=== PATIENT | male | born 1935 | race Caucasian/White ===

== ENCOUNTER 2017-01-24 06:43 | Inpatient (IN) ==
[~2017-01-24 06:43] MED LIST: ASPIRIN 325 MG TABLET PO ONE; DIAZEPAM 5 MG TABLET PO ONE; MAGNESIUM SULF RIDER 2 GM in PREMIX 1 EACH IV PRN; POTASSIUM CHLORIDE RIDER 10 MEQ in PREMIX 1 EACH IV PRN; diphenhydrAMINE CAP 25 MG CAPSULE PO ONE
[2017-01-24] MEDS ORDERED: HEPARIN/NACL 0.9% 2 UNITS/ML 1,000 ML IV ONE (07:16)
[2017-01-24] MEDS ORDERED: diphenhydrAMINE CAP 25 MG CAPSULE ONE (07:38)
[2017-01-24] MEDS ORDERED: DIAZEPAM 5 MG TABLET ONE (07:38)
[2017-01-24] MEDS: SODIUM CHLORIDE 0.9% 1,000 ML IV SCH ×4 (07:40→22:30)
[2017-01-24] MEDS ORDERED: LIDOCAINE 1% 20 ML VIAL ONE (08:41)
[2017-01-24] MEDS ORDERED: MIDAZOLAM 2 MG/2 ML VIAL ONE (08:42)
[2017-01-24] MEDS ORDERED: HYDROmorphone 2 MG/1 ML VIAL ONE (08:42)
--- NOTE | 2017-01-24 09:01 | History and Physical Update ---
Sedation H&P Update - History and Physical H&P was reviewed, the patient examined and there: are no changes in the patients condition since last H&P was completed. - Dictation Physical: refer to scanned H&P - Physical Exam Mental Status: alert and oriented Heart: regular rate and rhythm Lung: clear to auscultation Abdomen: within normal limits Vitals: within normal limits - Sedation Plan for Sedation: moderate Patient Consent: Procedure disscussed with patient and patinet has consented., Risks and benefits were discussed with patient,including infection,, bleeding, injury to surrounding structures, seizure, temporary nerve, Patient understands and accepts potential risks/benefits and agrees to, proceed. ASA Class: II Airway Assessment: Class II: Soft palate, uvula, fauces visible
[2017-01-24] MEDS ORDERED: ZALEPLON 5 MG CAPSULE PO PRN (09:50)
[2017-01-24] MEDS ORDERED: NITROGLYCERIN SL 0.4 MG TABLET SL PRN (09:50)
[2017-01-24] MEDS ORDERED: ACETAMINOPHEN 325 MG TABLET PO PRN (09:50)
[2017-01-24] MEDS ORDERED: ONDANSETRON 4 MG/2 ML VIAL IV PRN (09:50)
--- NOTE | 2017-01-24 09:50 | Cardiac Catheterization ---
Date of Procedure:: 01/24/17 Pre-op Diagnosis: Chest pain CAD Post-op diagnosis: same Procedure: Cardiac catheterization procedure note #1 left heart catheterization #2 selective coronary angiography #3 SAMUEL angiography #4 left ventriculography Omnipaque was used for the procedure Description of procedure Following sterile preparation draping of the right groin, local anesthesia was achieved by infiltration with 1% Xylocaine. Using a Cook needle the right femoral artery was cannulated and a #6 sheath was inserted. A 6 Kosovan pigtail catheter was introduced and advanced retrograde across the aortic valve into the left ventricle and the end-diastolic pressure was recorded. Left ventriculography was performed in the HERNANDEZ projection using 24 cc of contrast material. A pullback was made across aortic valve. The pigtail catheter change for a 6 Kosovan left Betty catheter and left coronary angiography was performed in several HERNANDEZ and JAMAICAN projections. The catheter change for a 6 Kosovan right Amplatz catheter and right coronary angiography was performed in the JAMAICAN projection only. The catheter exchanged for a 6 Kosovan internal mammary artery catheter and SAMUEL angiography was performed in the JAMAICAN projection only. The catheter and sheath were then removed and the femoral arteriotomy site was sealed percutaneously minx closure device with prompt cessation of bleeding and prompt return of the femoral and foot pulses. No complications ensued. The patient was transferred back to his room in stable condition. Hemodynamic data Left ventricle 152/10 Aortic pressure 152/53 mean of 90 Selective coronary angiography The circulation is left dominant. The left main trunk is patent and bifurcates. The LAD is calcified all the way to the apex. It has diffuse severe disease .a large first diagonal branch has a 50-60% stenosis. The circumflex is a dominant vessel. The main trunk of the circumflex has a patent stent site. There is a 80% stenosis in the posterior descending artery. The OM1 stent site is occluded with retrograde filling of this vessel. The RCA is a small nondominant vessel. The RV marginal branch provides right to left collaterals to the apical LAD. The DANIEL is a 2.5 mm non-tortuous vessel that is widely patent. Left ventriculography Ejection fraction 55%. No mitral regurgitation. Conclusions LVEDP 10 Ejection fraction 55% No mitral regurgitation No aortic valve gradient Left dominant circulation Left main trunk-patent LAD-diffusely calcified with severe diffuse disease Large ucfwcwsm-29-13% proximal Dominant circumflex-patent proximal stent site with occluded OM1 at the stent site with late filling and 80% stenosis in the PDA Right coronary-small nondominant, patent. RV marginal branch provides collaterals to the apical LAD SAMUEL-2.5 mm non-tortuous patent vessel Disposition The patient is status post proximal dominant circumflex and OM1 stent July 2013. There has been severe disease progression since that time. Ventricular function is preserved. The LAD is diffusely calcified to the apex and has severe disease and the OM1 is now occluded and the diagonal branch has moderate disease. Dr. Greg Maldonado has been consulted for surgical opinion. He remain on normal saline hydration. Cine pictures were reviewed with the patient 's and family. Implants: No implants Anesthesia: moderate conscious sedation Surgeon / Physician: Bk Torres Estimated blood loss: minimal Specimens: none sent Condition: stable Disposition: floor - Medications / Follow-up
[2017-01-24] MEDS ORDERED: diphenhydrAMINE CAP 50 MG CAPSULE PO PRN (16:58)
[2017-01-24] MEDS: CHLORHEXIDINE 4% SOLN 118 ML BOTTLE TOP SCH ×2 (18:52→20:40)
[2017-01-24] MEDS: PANTOPRAZOLE 40 MG TABLET PO SCH (20:40)
[2017-01-24] MEDS: CHLORHEXIDINE 0.12% ORAL RINSE 60 ML BOTTLE SWISH/SPIT SCH (20:41)
[2017-01-24] MEDS ORDERED: CARVEDILOL 3.125 MG TABLET PO SCH (21:00)
[2017-01-24] MEDS ORDERED: CILOSTAZOL 50 MG TABLET PO SCH (21:00)
[2017-01-25 04:52] LABS: Calcium 8.5 MG/DL (8.5-10.1); Osmolality,Calculated 286.8 MOS/KG (273-304)
[2017-01-25] MEDS: SODIUM CHLORIDE 0.9% 1,000 ML IV SCH ×4 (06:44→22:00)
--- NOTE | 2017-01-25 07:57 | Cardiology Progress Note ---
<Jeannette Anthony - Last Filed: 01/25/17 07:54> Assessment and Plan (1) CAD (coronary artery disease) Status: Chronic Assessment and plan: Plan for CABG tomorrow morning per Dr. Flanagan. -Continue aspirin -Increase carvedilol to 6.25 mg p.o. twice daily. Further plan and addendum to follow per Dr. Torres. Current Visit: Yes (2) Hypertension Status: Chronic Assessment and plan: Patient remains mildly hypertensive. Will increase Coreg to 6.25 mg p.o. twice daily. Current Visit: Yes (3) Hypercholesterolemia Status: Chronic Assessment and plan: Continue current plan of care with lipid lowering agent. Current Visit: Yes (4) Diabetes Status: Chronic Assessment and plan: Continue current plan of care. Current Visit: Yes Cardiology - PN: Subj Interval history: Patient is status post heart catheterization yesterday per Dr. Torres. The patient is status post proximal circumflex and OM1 stent July 2013. There has been severe disease progression since that time. Ventricular function is preserved, EF 55%. The LAD is diffusely calcified to the apex and has severe disease, the OM1 is now occluded and the diagonal branch has moderate disease. Dr. Greg Maldonado has been consulted. He plans for CABG tomorrow morning. Patient did well post heart catheterization. He has had no combinations. Right groin is soft without bleeding, hematoma and bruit. Bilateral distal pulses present. Patient denies chest pain, heaviness and tightness. He has ambulated around the room this morning. Right groin has remained stable post ambulation. Creatinine is stable post catheterization. He is currently sinus rhythm with heart rates in the 50s without any overt arrhythmias or ectopy noted. Labs-creatinine 1.0, potassium 4.0, sodium 144, chloride 109, blood sugar 97. Further plan and addendum to follow per Dr. Torres. Exam (Progress Note) - Constitutional Vitals: Period Temp Pulse Resp BP Sys/Reed Pulse Ox Last 24 Hr 97 F-98.7 F 55-60 14-20 130-185/58-87 93-95 General appearance: normal weight, no acute distress - Head Head exam: Present: normal inspection, normocephalic, atraumatic - Neck Neck exam: Present: normal inspection - Respiratory Respiratory exam: Present: clear to auscultation bilaterally. Absent: accessory muscle use, chest wall tenderness, rales, rhonchi, stridor, wheezes - Cardiovascular Cardiovascular exam: Present: regular rate and rhythm. Absent: gallop, rubs - GI/Abdominal GI/Abdominal exam: Present: normal bowel sounds, soft. Absent: distended, firm , mass, tenderness - Extremities Exam Extremities exam: Present: normal inspection, normal capillary refill, other ( Right groin soft without bleeding, hematoma and bruit. Distal pulses present.) . Absent: calf tenderness, edema - Neurological Exam Neurological exam: Present: alert, oriented X3, normal gait - Psychiatric Psychiatric exam: Present: normal affect, normal mood - Skin Skin exam: Present: normal color, warm, dry. Absent: cyanosis, erythema Result/EKG - Labs CBC & BMP: 01/25/17 03:13 Lab Results: I have reviewed the past 24 hour labs Labs: Laboratory Results - last 24 hr 01/25/17 03:13 Sodium 144 Potassium 4.0 Chloride 109 H Carbon Dioxide 29 Anion Gap 10.0 BUN 14 Creatinine 1.00 GFR Calculation 78 BUN/Creatinine Ratio 14.00 Glucose 97 Calculated Osmolality 286.8 Calcium 8.5 Quality Measures - VTE Contraindication to Pharmacological VTE Prophylaxis: Active Bleeding - Stroke Presenting Symptoms: Decreased peripheral vision Specialty Discharge - Follow Up or Referrals <Bk Torres - Last Filed: 01/25/17 09:09> Cardiology - PN: Subj Interval history: Cardiology addendum Patient seen and examined and chart reviewed. Right groin soft and dry. No bruit or hematoma. Distal pulses 2+ symmetric. Renal function stable post-cath, creatinine 1.0 BUN 14 potassium 4.0 Telemetry shows steady sinus rhythm Plan Routine groin precautions discussed CABG tomorrow Exam (Progress Note) - Constitutional Vitals: Period Temp Pulse Resp BP Sys/Reed Pulse Ox Last 24 Hr 97 F-98.7 F 55-60 14-20 130-185/58-87 93-95 Result/EKG - Labs CBC & BMP: 01/25/17 03:13 Labs: Laboratory Results - last 24 hr 01/25/17 03:13 Sodium 144 Potassium 4.0 Chloride 109 H Carbon Dioxide 29 Anion Gap 10.0 BUN 14 Creatinine 1.00 GFR Calculation 78 BUN/Creatinine Ratio 14.00 Glucose 97 Calculated Osmolality 286.8 Calcium 8.5
--- NOTE | 2017-01-25 08:40 | Cardiothoracic Consult ---
Assessment and Plan - Time spent with patient Time spent with patient: Greater than 30 minutes (1) CAD (coronary artery disease) Status: Chronic Assessment and plan: Risk Model and Variables - STS Adult Cardiac Surgery Database Version 2.81 RISK SCORES About the STS Risk Calculator Procedure: CAB Only Risk of Mortality: 2.391% Morbidity or Mortality: 16.049% Long Length of Stay: 7.431% Short Length of Stay: 35.304% Permanent Stroke: 1.402% Prolonged Ventilation: 10.443% DSW Infection: 0.494% Renal Failure: 3.071% Reoperation: 6.82% Risks benefits and alternatives of coronary artery bypass graft was discussed with the patient. The patient is considered slightly higher risk than average for the CABG due to his age however he is functional and his overall outcome would be favorable. The patient understands the risks and benefits and he is willing and eager to proceed with the surgery. I scheduled him for coronary artery bypass graft on January 26, 2017. Current Visit: Yes History of Present Illness - Data of Consult Patient: new to practice Consult date: 01/24/17 Requesting Physician: Bk Torres - Consult Narrative Reason for consult: severe coronary artery disease History of present illness: Mr. Lazo is a 81 year old male who has been having increasing shortness of breath upon exertion over the past few months. The patient did have a stent placed a few years ago and the circumflex artery. He was taken to [facility] and he was found to have multivessel coronary artery disease. That is including a completely diseased left anterior descending artery across its entire course. CC: Bk Torres MD - Home Medications and Allergies Home Medications: Home Medications Medication Instructions Recorded Confirmed Type Aspirin [Ecotrin] 81 mg PO DAILY 01/23/17 01/24/17 History Carvedilol 3.125 mg PO BID 01/23/17 01/24/17 History Cilostazol 50 mg PO BID 01/23/17 01/24/17 History Citalopram [CeleXA] 20 mg PO DAILY 01/23/17 01/24/17 History Ezetimibe [Zetia] 10 mg PO DAILY 01/23/17 01/24/17 History Lisinopril 10 mg PO DAILY 01/23/17 01/24/17 History Pantoprazole Tab [Protonix Tab] 40 mg PO BID 01/23/17 01/24/17 History Pravastatin [Pravachol] 40 mg PO DAILY 01/23/17 01/24/17 History amLODIPine [Norvasc] 2.5 mg PO DAILY 01/23/17 01/24/17 History Allergies/Adverse Reactions: Allergies Allergy/AdvReac Type Severity Reaction Status Date / Time No Known Allergies Allergy Verified 01/24/17 07:03 12 point system: reviewed and no additional remarkable complaints except as stated (HPI) Medical,Surgical,& Family Hx - Medical History Cardio: History of: Hypertension Neurology: No history of: Seizures Endocrine: History of: Dyslipidemia - Surgical History Cardiac Surgeries: Sugical HX of: Cardiac Catheterization (stents) - Family History Family History: Reports;: Family Heart Disease, Family Hypertension - Social History Smoking Status: Former smoker Frequency of Alcohol Use: None Type of Drug Use: None Physical Examination Vital Signs Temp Pulse Resp BP Pulse Ox 97.6 F 58 L 14 178/79 97 01/24/17 07:16 01/24/17 07:16 01/24/17 07:16 01/24/17 07:16 01/24/17 07:16 General: Present: Appears Well HEENT: Present: PERRL Neck: Present: Supple Neck Cardiac: Present: Reg Rate and Rhythm Lungs: Present: Normal Exam, Clear Ascult./Percussion Neuro: Present: Cranial Nerve 2-12 Intact Abdomen: Present: Soft, Active Bowel Sounds Result/EKG - Labs CBC & BMP: 01/25/17 03:13 Labs: Laboratory Results - last 24 hr 01/25/17 03:13 Sodium 144 Potassium 4.0 Chloride 109 H Carbon Dioxide 29 Anion Gap 10.0 BUN 14 Creatinine 1.00 GFR Calculation 78 BUN/Creatinine Ratio 14.00 Glucose 97 Calculated Osmolality 286.8 Calcium 8.5 Quality Measures - VTE Contraindication to Pharmacological VTE Prophylaxis: Active Bleeding - Stroke Presenting Symptoms: Decreased peripheral vision Specialty Discharge - Follow Up or Referrals
[2017-01-25] MEDS: EZETIMIBE 10 MG TABLET PO SCH (09:13)
[2017-01-25] MEDS: ASPIRIN EC 81 MG TABLET PO SCH (09:13)
[2017-01-25] MEDS: CITALOPRAM 20 MG TABLET PO SCH (09:13)
[2017-01-25] MEDS: PRAVASTATIN 40 MG TABLET PO SCH (09:16)
[2017-01-25] MEDS: amLODIPine 2.5 MG TABLET PO SCH (09:17)
[2017-01-25] MEDS: CARVEDILOL 6.25 MG TABLET PO SCH ×2 (09:17→17:47)
[2017-01-25] MEDS: PANTOPRAZOLE 40 MG TABLET PO SCH ×2 (09:18→22:39)
[2017-01-25] MEDS: LISINOPRIL 10 MG TABLET PO SCH (09:18)
[2017-01-25] MEDS: CHLORHEXIDINE 0.12% ORAL RINSE 60 ML BOTTLE SWISH/SPIT SCH ×2 (09:19→22:38)
[2017-01-25] MEDS ORDERED: LORazepam 0.5 MG TABLET PO ONE (12:07)
[2017-01-25] MEDS ORDERED: FAMOTIDINE 20 MG TABLET PO ONE (12:07)
[2017-01-25 12:19] LABS: Basophils % 0.7 % (0.0-0.8); Eosinophils # 0.2 10*3/uL (0.0-0.87); Eosinophils % 4.5 % (0.00-10.9); Hematocrit 39.1 VOL% (42.0-52.0); Hemoglobin 12.8 GM/DL (14.0-18.0); Immature Granulocytes % 0.2 %; Immature Granulocytes Absolute 0.01 #; Lymphocytes # 1.1 10*3/uL (1.4-4.0); Lymphocytes % 23.6 % (21.2-54.2); Mean Corpuscular HGB Conc 32.7 GM/DL (32-36); Mean Corpuscular Hemoglobin 31 PG (27-34); Mean Corpuscular Volume 93.8 FL (87-102); Mean Platelet Volume 10.2 FL (9.6-12.0); Monocytes # 0.3 10*3/uL (0.11-0.8); Monocytes % 7.3 % (1.7-12.7); Neutrophils # 2.9 10*3/uL (1.4-7.4); Neutrophils % 63.7 % (38.7-73.9); Platelet Count 179 T/CUMM (130-400); Red Blood Count 4.17 MC/CUMM (3.8-5.5); Red Cell Distribution Width 13.4 % (9.3-17.3); White Blood Count 4.5 T/CUMM (4-12)
[2017-01-25] MEDS: CHLORHEXIDINE 4% SOLN 118 ML BOTTLE TOP SCH ×2 (12:33→18:30)
[2017-01-26] MEDS: SODIUM CHLORIDE 0.9% 1,000 ML IV SCH ×3 (02:37→12:22)
[2017-01-26] MEDS: CHLORHEXIDINE 4% SOLN 118 ML BOTTLE TOP SCH (04:13)
[2017-01-26] MEDS ORDERED: PAPAVERINE 60 MG/2 ML VIAL ONE (04:33)
[2017-01-26] MEDS ORDERED: VANCOMYCIN 1,000 MG VIAL ONE (04:34)
[2017-01-26] MEDS ORDERED: TISSUE ADHESIVE 1 EACH APPLICATOR TOP ONE (04:34)
[2017-01-26] MEDS ORDERED: CEFUROXIME INJ 1,500 MG in SODIUM CHLORIDE 0.9% 100 ML IV ONE (05:00)
[2017-01-26] MEDS ORDERED: LORazepam 0.5 MG TABLET PO ONE (05:00)
[2017-01-26] MEDS ORDERED: FAMOTIDINE 20 MG TABLET PO ONE (05:00)
[2017-01-26] MEDS: PANTOPRAZOLE 40 MG TABLET PO SCH ×2 (06:11→11:44)
[2017-01-26] MEDS: LISINOPRIL 10 MG TABLET PO SCH ×2 (06:12→11:44)
[2017-01-26] MEDS: CARVEDILOL 6.25 MG TABLET PO SCH ×2 (06:12→11:42)
[2017-01-26] MEDS ORDERED: VECURONIUM 10 MG VIAL IV ONE (06:45)
[2017-01-26] MEDS ORDERED: PHENYLEPHRINE 20 MG/250 ML PREMIX IV ONE (06:45)
[2017-01-26] MEDS ORDERED: ETOMIDATE 20 MG/10 ML VIAL IV ONE (06:45)
[2017-01-26] MEDS ORDERED: CALCIUM CHLORIDE 1,000 MG/10 ML SYRINGE IV ONE ×2 (06:45→09:47)
[2017-01-26] MEDS ORDERED: LIDOCAINE 2% 5 ML VIAL ONE (06:45)
[2017-01-26] MEDS ORDERED: AMINOCAPROIC ACID 5,000 MG/20 ML VIAL IV ONE (06:45)
[2017-01-26] MEDS ORDERED: HEPARIN/NACL 0.9% 2 UNITS/ML 500 ML IV ONE (06:45)
[2017-01-26] MEDS ORDERED: GLYCOPYRROLATE 0.4 MG/2 ML VIAL ONE (06:45)
[2017-01-26] MEDS ORDERED: NITROGLYCERIN 50 MG/250 ML BOTTLE IV ONE (06:45)
[2017-01-26 07:26] LABS: ABG Base Excess 0.3 MMOL/L (-2.5-2.5); ABG HCO3 24.7 MMOL/L (20-26); ABG Oxygen Saturation 99.5 % (95-100); ABG PCO2 38.9 MM HG (35-48); ABG PH 7.411 (7.35-7.45); ABG TCO2 21.7 MMOL/L (23-27); Glucose Heart Surgery 106 MG/DL (74-106); Hematocrit Heart Surgery 38.9 PERCENT (42-52); Hemoglobin Heart Surgery 12.6 G/DL (14.0-18.0); Ionized Calcium Arterial 1.16 MMOL/L (1.21-1.46); PCO2 Patient Temp Arterial 38.9 MMHG; PH Patient Temp Arterial 7.411; Patient Temperature 37 CELCIUS; Potassium Heart/CVR 3.6 MMOL/L (3.5-5.1); Sodium Heart/CVR 141 MMOL/L (135-145)
[2017-01-26 07:50] LABS: Apearance,Urine CLEAR (Clear); Bilirubin,Urine Negative (Negative); Blood, Urine Negative (Negative); Glucose,Urine (UA) Negative (Negative); Ketones,Urine Negative (Negative); Nitrite,Urine Negative (Negative); Protein,Urine Negative; RBC,Urine 2 /HPF (0-4); Urine Color Straw (Yellow); Urine Specific Gravity 1.009 (1.001-1.035); Urine Urobilinogen < 2.0 EU/DL (0.2-1.0); WBC,Urine 1 /HPF (0-6)
[2017-01-26] MEDS ORDERED: NITROGLYCERIN DRIP 50 MG/250 ML BOTTLE IV ONE (08:42)
[2017-01-26 08:59] LABS: Hematocrit Heart Surgery 24.3 PERCENT (42-52); Hemoglobin Heart Surgery 7.8 G/DL (14.0-18.0); PCO2 Patient Temp Venous 37.2 MM HG; PH Patient Temp Venous 7.433; PO2 Patient Temp Venous 41.4 MM HG; Potassium Heart/CVR 4.3 MMOL/L (3.5-5.1); VBG Base Excess 0.7 MEQ/L (0-4); VBG HCO3 24.8 MEQ/L (24-28); VBG Oxygen Saturation 78.6 %; VBG PCO2 37.2 MMHG (41-51); VBG PH 7.433; VBG PO2 41.4 MMHG (17-40)
[2017-01-26 09:26] LABS: Hematocrit Heart Surgery 24.1 PERCENT (42-52); Hemoglobin Heart Surgery 7.7 G/DL (14.0-18.0); PCO2 Patient Temp Venous 34.1 MM HG; PH Patient Temp Venous 7.48; PO2 Patient Temp Venous 32.4 MM HG; VBG Base Excess 2.1 MEQ/L (0-4); VBG HCO3 25.9 MEQ/L (24-28); VBG Oxygen Saturation 70.4 %; VBG PCO2 35.7 MMHG (41-51); VBG PH 7.465; VBG PO2 34.8 MMHG (17-40)
[2017-01-26 09:27] LABS: Potassium Heart/CVR 6.4 MMOL/L (3.5-5.1)
[2017-01-26] MEDS ORDERED: INSULIN REGULAR 100 UNIT/ML ONE (09:34)
[2017-01-26] MEDS ORDERED: PHENYLEPHRINE DRIP 0 MG/0 ML PREMIX IV ONE (09:47)
[2017-01-26] MEDS ORDERED: POTASSIUM CHLORIDE RIDER 100 ML IV ONE (09:47)
[2017-01-26] MEDS ORDERED: ALBUMIN 5% 12.5 GM/250 ML VIAL IV ONE (09:48)
[2017-01-26] MEDS ORDERED: HEPARIN 10,000 UNIT/10 ML VIAL ONE (09:59)
[2017-01-26] MEDS ORDERED: FUROSEMIDE 20 MG/2 ML VIAL ONE (09:59)
[2017-01-26] MEDS ORDERED: PROTAMINE SULFATE 250 MG/25 ML VIAL IV ONE (09:59)
[2017-01-26] MEDS ORDERED: MANNITOL 12.5 GM/50 ML VIAL IV ONE (09:59)
[2017-01-26] MEDS ORDERED: POTASSIUM CHLORIDE 20 MEQ/10 ML VIAL ONE (09:59)
[2017-01-26] MEDS ORDERED: SODIUM BICARBONATE 50 MEQ/50 ML SYRINGE IV ONE (09:59)
[2017-01-26] MEDS ORDERED: methylPREDNISolone SOD SUC 1,000 MG/8 ML VIAL ONE (09:59)
[2017-01-26] MEDS ORDERED: ALBUMIN 25% 25 GM/100 ML VIAL IV ONE (09:59)
[2017-01-26] MEDS ORDERED: MAGNESIUM SULFATE 1 GM/2 ML VIAL ONE (09:59)
[2017-01-26] MEDS ORDERED: DEXTROSE 5% KCL 20 MEQ 20 MEQ/1,000 ML BAG IV ONE (10:00)
[2017-01-26 10:06] LABS: ABG Base Excess 0.7 MMOL/L (-2.5-2.5); ABG HCO3 25.1 MMOL/L (20-26); ABG PH 7.452 (7.35-7.45); ABG TCO2 22.5 MMOL/L (23-27); Glucose Heart Surgery 252 MG/DL (74-106); Hematocrit Heart Surgery 26.9 PERCENT (42-52); Hemoglobin Heart Surgery 8.7 G/DL (14.0-18.0); Ionized Calcium Arterial 1.19 MMOL/L (1.21-1.46); PH Patient Temp Arterial 7.452; Patient Temperature 37 CELCIUS; Sodium Heart/CVR 134 MMOL/L (135-145)
--- NOTE | 2017-01-26 10:33 | Anesthesia ---
Anesthesia Procedures - Arterial Line Time out performed arterial line: Yes Size (Gauge): 20 Technique used arterial line: guide wire technique Post-Procedure: line sutured into place Patient tolerated procedure arterial line: well Complications art line: none Site: right
--- NOTE | 2017-01-26 10:34 | Anesthesia ---
Anesthesia Procedures - Central Venous Insert Monitors Applied: pulse oximetry, EKG, BP cuff, oxygen via MSBT: pulse oximetry, EKG, BP cuff, oxygen via Procedure: after sterile technique was performed as outlined above, , ultrasound guidance was used to identify vessel, 18G introducer needle was passed into vessel under direct visualizatio, 16G introducer needle was passed into vessel under direct visualizatio, catheter sutured into place and the ports flushed with NS/hepflush, sterlie dressing applied including the antibiotic disc, vital signs were stable throughout procedure, no apparent complications were noted, CXR to be obtained and read Ultrasound used: identify patency vessel Vein Cannulated: right internal juglar
[2017-01-26] MEDS: ALBUMIN 5% 12.5 GM in PREMIX 1 EACH IV PRN ×2 (11:00→17:00)
[2017-01-26] MEDS: SODIUM CHLORIDE 0.45% 1,000 ML IV SCH ×2 (11:00)
[2017-01-26] MEDS ORDERED: CALCIUM CHLORIDE 1,000 MG/10 ML SYRINGE IV PRN (11:01)
[2017-01-26] MEDS ORDERED: POTASSIUM CHLORIDE RIDER 10 MEQ in PREMIX 1 EACH IV PRN (11:01)
[2017-01-26] MEDS ORDERED: ONDANSETRON 4 MG/2 ML VIAL IV PRN (11:01)
[2017-01-26] MEDS ORDERED: INSULIN REGULAR 100 UNIT/ML IV ONE (11:01)
[2017-01-26] MEDS ORDERED: ACETAMINOPHEN 650 MG SUPP RECTAL PRN (11:01)
[2017-01-26] MEDS: NITROGLYCERIN DRIP 50 MG/250 ML BOTTLE IV SCH ×2 (11:01→16:57)
[2017-01-26] MEDS ORDERED: SODIUM CHLORIDE 0.9% 250 ML IV PRN (11:01)
[2017-01-26] MEDS ORDERED: CHLORHEXIDINE 4% SOLN 118 ML BOTTLE TOP PRN (11:01)
[2017-01-26] MEDS ORDERED: MAGNESIUM SULF RIDER 4 GM in PREMIX 1 EACH IV PRN (11:01)
[2017-01-26] MEDS ORDERED: DEXTROSE 50% 25 GM/50 ML VIAL IV PRN ×2 (11:01)
[2017-01-26] MEDS ORDERED: NITROPRUSSIDE 50 MG/2 ML VIAL ONE (11:19)
[2017-01-26] MEDS ORDERED: SEVOFLURANE 1 UNIT/15 MINUTE INH ONE (11:20)
[2017-01-26] MEDS: NITROPRUSSIDE 100 MG in DEXTROSE 5% 246 ML IV SCH (11:20)
[2017-01-26] MEDS ORDERED: SODIUM CHLORIDE 0.9% 250 ML IV ONE (11:21)
[2017-01-26] MEDS ORDERED: MIDAZOLAM 10 MG/2 ML VIAL ONE (11:21)
[2017-01-26] MEDS ORDERED: SODIUM CHLORIDE 0.9% 2,000 ML IV ONE (11:21)
[2017-01-26] MEDS ORDERED: LACTATED RINGERS 2,000 ML IV ONE (11:21)
--- NOTE | 2017-01-26 11:23 | Operative Note ---
Date of procedure: 01/26/17 Pre-op diagnosis: Severe multivessel coronary artery disease Post-op diagnosis: same Procedure: Procedure: 1. Allons of right great saphenous vein 2. Allons of the left internal mammary artery 3. Institution of cardiopulmonary bypass 4. Coronary artery bypass graft x2, free graft SAMUEL to Diagonal, saphenous vein graft to the 2nd OM artery Findings: The the entire course of the left anterior descending artery was severely calcified and that was noted preoperative cath and the decision was already made that we will most likely avoid interfering with that artery. That was confirmed intraoperative. The SAMUEL was severely adhesed to the chest wall initially proximally so I used a free graft SAMUEL to the diagonal branch and it had good flow. I used saphenous vein graft to the second OM branch which noted to be severely calcified proximally. Details of the procedure: The patient was brought into the OR table and placed supine and general endotracheal anesthesia was induced without any problems. Timeout was performed. Antibiotics were given. The chest was prepped and draped in the usual fashion. Midline incision was made on the chest. The sternum was opened. Hemostasis was achieved. I dissected down the left internal mammary artery in its entirety from the first rib all the way down to the xiphisternum. The SAMUEL was adhesed to the chest wall almost plastered at points. I then transected the SAMUEL proximally to used as a free graft. I then inserted and angled chest tube to the left chest. After that, I turned my attention to opening the pericardium. I exposed the heart and aorta. I then started placing the pericardial stitches. Heparin was given. I then cannulating the proximal arch of the aorta. After that I cannulated the right atrium to the IVC. I then proceeded with preparing the mammary. Started the cardiopulmonary bypass. I inserted the cardioplegia needle. Cross-clamp was applied. Cardioplegia was given. The heart was arrested successfully. . I then moved my attention to the obtuse marginal artery. It was diseased except for the distal segment. I identified that segment and the open-ended. This anastomosis was achieved between saphenous ein and the artery. This was tested and it was condition. The distal anastomosis was achieved between the SAMUEL and the diagonal branch. I then removed the lamp and the heart recovered well to sinus rhythm. I then instituted the proximal anastomosis to the obtuse more graft then to the diagonal SAMUEL free graft. Hemostasis was achieved. I weaned the patient from bypass in good condition. Protamine was given. Hemostasis was achieved. All counts were correct at the end of the procedure. The patient was decannulated successfully. Chest tube were inserted. The sternum was closed using wires. Subcutaneous tissues closed uterine using running PDS. 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 The patient was transferred to ICU in good condition. Anesthesia: JEAN Surgeon / Physician: Jossie Flanagan Estimated blood loss: other (CPB) Tourniquet Time (Minutes): 29 Specimens: none sent Condition: stable Disposition: ICU Results - Labs CBC & BMP: 01/26/17 10:06 01/25/17 03:13 Discharge Plan - Discharge Medications No Action Ezetimibe [Zetia] 10 mg PO DAILY amLODIPine [Norvasc] 2.5 mg PO DAILY Pravastatin [Pravachol] 40 mg PO DAILY Lisinopril 10 mg PO DAILY Citalopram [CeleXA] 20 mg PO DAILY Carvedilol 3.125 mg PO BID Aspirin [Ecotrin] 81 mg PO DAILY Pantoprazole Tab [Protonix Tab] 40 mg PO BID Cilostazol 50 mg PO BID - Follow Up or Referral - Forms/Instructions Instructions: Heart Healthy Diet (GEN), Coronary Artery Bypass Graft, Sewer Connector (GEN), Sternal Precautions, Sewer Connector (GEN)
[2017-01-26] MEDS ORDERED: ePHEDrine 50 MG/ML AMP ONE (11:24)
[2017-01-26] MEDS: CITALOPRAM 20 MG TABLET PO SCH (11:43)
[2017-01-26] MEDS: ASPIRIN EC 81 MG TABLET PO SCH (11:43)
[2017-01-26] MEDS: amLODIPine 2.5 MG TABLET PO SCH (11:43)
[2017-01-26] MEDS: CHLORHEXIDINE 0.12% ORAL RINSE 60 ML BOTTLE SWISH/SPIT SCH ×2 (11:44→20:05)
[2017-01-26] MEDS: PRAVASTATIN 40 MG TABLET PO SCH (11:44)
[2017-01-26] MEDS: EZETIMIBE 10 MG TABLET PO SCH (11:45)
[2017-01-26 12:06] LABS: ABG HCO3 23.8 MMOL/L (20-26); ABG Oxygen Saturation 95.5 % (95-100); ABG PCO2 31.4 MM HG (35-48); ABG PH 7.497 (7.35-7.45); ABG PO2 76.2 MM HG (80-95); ABG TCO2 24.7 MMOL/L (23-27); Glucose Heart Surgery 156 MG/DL (74-106); Hemoglobin Heart Surgery 10.6 G/DL (14.0-18.0); Potassium Heart/CVR 2.8 MMOL/L (3.5-5.1)
[2017-01-26 12:06] LABS: Basophils % 0.2 % (0.0-0.8); Eosinophils % 0.6 % (0.00-10.9); Hematocrit 28.8 VOL% (42.0-52.0); Immature Granulocytes % 0.8 %; Immature Granulocytes Absolute 0.05 #; Lymphocytes # 0.7 10*3/uL (1.4-4.0); Mean Corpuscular HGB Conc 33.7 GM/DL (32-36); Mean Corpuscular Hemoglobin 31 PG (27-34); Mean Corpuscular Volume 91.1 FL (87-102); Mean Platelet Volume 9.7 FL (9.6-12.0); Monocytes # 0.4 10*3/uL (0.11-0.8); Monocytes % 5.9 % (1.7-12.7); Neutrophils # 5.4 10*3/uL (1.4-7.4); Neutrophils % 82.5 % (38.7-73.9); Red Cell Distribution Width 13.2 % (9.3-17.3)
--- NOTE | 2017-01-26 12:07 | XRay Report ---
XR chest 1V portable Indication: Intubated. Chest one view: Comparison 03/31/2015. Endotracheal tube terminates 4 cm cephalad to the tomi. Right IJ central line extends to the SVC. NG tube extends left upper quadrant. Mediastinal and left basilar chest drains are present. No pneumothorax shown. Bibasilar atelectasis is present. Heart size is normal. Median sternotomy wires are now present. Impression: Lines and tubes as described. No pneumothorax. Bibasilar atelectasis. Immediate postoperative changes of median sternotomy. PROCEDURE INTERPRETED AT [facility] DEPARTMENT OF RADIOLOGY Final Report Signed by: Luis Aggarwal M.D.
[2017-01-26 12:10] LABS: Hemoglobin 9.7 GM/DL (14.0-18.0); Red Blood Count 3.16 MC/CUMM (3.8-5.5); White Blood Count 6.6 T/CUMM (4-12)
[2017-01-26 12:11] LABS: Platelet Count 154 T/CUMM (130-400)
[2017-01-26 12:15] LABS: INR 1.3; PT Patient Result 13.4 SECS; Partial Thromboplastin Time 30.8 SECS (0-40)
[2017-01-26] MEDS: POTASSIUM CHLORIDE RIDER 20 MEQ in PREMIX 1 EACH IV PRN ×2 (12:20→23:44)
[2017-01-26 12:35] LABS: Calcium 8.1 MG/DL (8.5-10.1); Magnesium 1.7 MG/DL (1.8-2.4); Osmolality,Calculated 282.3 MOS/KG (273-304); Potassium 3.1 MMOL/L (3.5-5.1)
[2017-01-26 12:39] LABS: Lactic Acid 2.6 MMOL/L (0.4-2.0)
[2017-01-26] MEDS: MAGNESIUM SULF RIDER 2 GM in PREMIX 1 EACH IV PRN ×2 (13:20→15:10)
--- NOTE | 2017-01-26 13:47 | Cardiology Progress Note ---
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 Preop EF 55%. Telemetry shows sinus rhythm in the 80s. Blood pressure 132/56 on nitrite and NTG O2 sat 97 on 70% FiO2 Good urine output Minimal chest tube output today Plan Wean vent as tolerated Follow chest tube output Labs in a.m. Exam (Progress Note) - Constitutional Vitals: Period Temp Pulse Resp BP Sys/Reed Pulse Ox Last 24 Hr 96.7 F-98.8 F 56-76 8-20 134-210/52-84 94-99 Result/EKG - Labs CBC & BMP: 01/26/17 12:00 01/26/17 12:00 Labs: Laboratory Results - last 24 hr 01/25/17 01/26/17 01/26/17 10:13 07:00 07:23 WBC RBC Hgb Hct MCV MCH MCHC RDW Plt Count 132 D MPV Neut % (Auto) Lymph % (Auto) [place] % (Auto) Eos % (Auto) Baso % (Auto) Neut # (Auto) Lymph # (Auto) [place] # (Auto) Eos # (Auto) Baso # (Auto) Immature Gran % Nucleated RBC % Immature Gran # Nucleated RBCs # INR PT Patient/Control Mix Circ Anticoag PTT Patient Temperature ABG pH ABG pH at Pt Temp ABG pCO2 ABG pCO2 at Pt Temp ABG pO2 ABG pO2 at Pt Temp ABG HCO3 ABG Total CO2 ABG O2 Saturation ABG Base Excess ABG Sodium VBG pH VBG pCO2 VBG pO2 VBG HCO3 VBG Total CO2 VBG O2 Saturation VBG Base Excess Hemoglobin Hematocrit Potassium Glucose Ionized Calcium FiO2 Sodium Chloride Carbon Dioxide Anion Gap BUN Creatinine GFR Calculation BUN/Creatinine Ratio Calculated Osmolality Lactic Acid Calcium Venous Ioniz Calcium Magnesium Urine Color Straw Urine Appearance Clear Urine pH 6.0 Ur Specific Effort 1.009 Urine Protein Negative Urine Glucose (UA) Negative Urine Ketones Negative Urine Blood Negative Urine Nitrate Negative Urine Bilirubin Negative Urine Urobilinogen < 2.0 H Urine Leukocytes Negative Urine RBC 2 Urine WBC 1 Ur Culture Indicated? Not indicated Blood Type A POSITIVE Antibody Screen Negative Crossmatch See Detail 01/26/17 01/26/17 01/26/17 07:23 08:57 09:25 WBC RBC Hgb Hct MCV MCH MCHC RDW Plt Count MPV Neut % (Auto) Lymph % (Auto) [place] % (Auto) Eos % (Auto) Baso % (Auto) Neut # (Auto) Lymph # (Auto) [place] # (Auto) Eos # (Auto) Baso # (Auto) Immature Gran % Nucleated RBC % Immature Gran # Nucleated RBCs # INR PT Patient/Control Mix Circ Anticoag PTT Patient Temperature 37 37 36 ABG pH 7.411 ABG pH at Pt Temp 7.411 7.433 7.480 ABG pCO2 38.9 ABG pCO2 at Pt Temp 38.9 37.2 34.1 ABG pO2 191.0 H ABG pO2 at Pt Temp 191.0 41.4 32.4 ABG HCO3 24.7 ABG Total CO2 21.7 L ABG O2 Saturation 99.5 ABG Base Excess 0.3 ABG Sodium 141 134 L 130 L VBG pH 7.433 7.465 VBG pCO2 37.2 L 35.7 L VBG pO2 41.4 H 34.8 VBG HCO3 24.8 25.9 VBG Total CO2 23.3 24.1 VBG O2 Saturation 78.6 70.4 VBG Base Excess 0.7 2.1 Hemoglobin 12.6 L 7.8 L D 7.7 L Hematocrit 38.9 L 24.3 L 24.1 L Potassium 3.6 4.3 6.4 H* Glucose 106 228 H 305 H Ionized Calcium 1.16 L FiO2 21.00 80.00 Sodium Chloride Carbon Dioxide Anion Gap BUN Creatinine GFR Calculation BUN/Creatinine Ratio Calculated Osmolality Lactic Acid Calcium Venous Ioniz Calcium 0.96 L 0.96 L Magnesium Urine Color Urine Appearance Urine pH Ur Specific Effort Urine Protein Urine Glucose (UA) Urine Ketones Urine Blood Urine Nitrate Urine Bilirubin Urine Urobilinogen Urine Leukocytes Urine RBC Urine WBC Ur Culture Indicated? Blood Type Antibody Screen Crossmatch 01/26/17 01/26/17 01/26/17 10:06 10:10 12:00 WBC 6.6 D RBC 3.16 L D Hgb 9.7 L D Hct 28.8 L MCV 91.1 MCH 31 MCHC 33.7 RDW 13.2 Plt Count 91 L D 154 D MPV 9.7 Neut % (Auto) 82.5 H Lymph % (Auto) 10.0 L [place] % (Auto) 5.9 Eos % (Auto) 0.6 Baso % (Auto) 0.2 Neut # (Auto) 5.4 Lymph # (Auto) 0.7 L [place] # (Auto) 0.4 Eos # (Auto) 0.0 Baso # (Auto) 0.0 Immature Gran % 0.8 Nucleated RBC % 0.0 Immature Gran # 0.05 Nucleated RBCs # 0.00 INR PT Patient/Control Mix Circ Anticoag PTT Patient Temperature 37 ABG pH 7.452 H ABG pH at Pt Temp 7.452 ABG pCO2 35.0 ABG pCO2 at Pt Temp 35.0 ABG pO2 121.0 H ABG pO2 at Pt Temp 121.0 ABG HCO3 25.1 ABG Total CO2 22.5 L ABG O2 Saturation 99.0 ABG Base Excess 0.7 ABG Sodium 134 L VBG pH VBG pCO2 VBG pO2 VBG HCO3 VBG Total CO2 VBG O2 Saturation VBG Base Excess Hemoglobin 8.7 L Hematocrit 26.9 L Potassium 4.0 Glucose 252 H Ionized Calcium 1.19 L FiO2 Sodium Chloride Carbon Dioxide Anion Gap BUN Creatinine GFR Calculation BUN/Creatinine Ratio Calculated Osmolality Lactic Acid Calcium Venous Ioniz Calcium Magnesium Urine Color Urine Appearance Urine pH Ur Specific Effort Urine Protein Urine Glucose (UA) Urine Ketones Urine Blood Urine Nitrate Urine Bilirubin Urine Urobilinogen Urine Leukocytes Urine RBC Urine WBC Ur Culture Indicated? Blood Type Antibody Screen Crossmatch 01/26/17 01/26/17 01/26/17 12:00 12:00 12:04 WBC RBC Hgb Hct MCV MCH MCHC RDW Plt Count MPV Neut % (Auto) Lymph % (Auto) [place] % (Auto) Eos % (Auto) Baso % (Auto) Neut # (Auto) Lymph # (Auto) [place] # (Auto) Eos # (Auto) Baso # (Auto) Immature Gran % Nucleated RBC % Immature Gran # Nucleated RBCs # INR 1.3 PT Patient/Control Mix 13.4 Circ Anticoag PTT 30.8 D Patient Temperature ABG pH 7.497 H ABG pH at Pt Temp ABG pCO2 31.4 L ABG pCO2 at Pt Temp ABG pO2 76.2 L ABG pO2 at Pt Temp ABG HCO3 23.8 ABG Total CO2 24.7 ABG O2 Saturation 95.5 ABG Base Excess 1.0 ABG Sodium VBG pH VBG pCO2 VBG pO2 VBG HCO3 VBG Total CO2 VBG O2 Saturation VBG Base Excess Hemoglobin 10.6 L Hematocrit 31.0 L Potassium 3.1 L 2.8 L Glucose 160 H 156 H Ionized Calcium FiO2 Sodium 141 Chloride 106 Carbon Dioxide 24 Anion Gap 14.1 BUN 10 Creatinine 0.90 GFR Calculation 89 BUN/Creatinine Ratio 11.00 Calculated Osmolality 282.3 Lactic Acid 2.6 H Calcium 8.1 L Venous Ioniz Calcium Magnesium 1.7 L Urine Color Urine Appearance Urine pH Ur Specific Effort Urine Protein Urine Glucose (UA) Urine Ketones Urine Blood Urine Nitrate Urine Bilirubin Urine Urobilinogen Urine Leukocytes Urine RBC Urine WBC Ur Culture Indicated? Blood Type Antibody Screen Crossmatch Quality Measures - VTE Contraindication to Pharmacological VTE Prophylaxis: Active Bleeding - Stroke Presenting Symptoms: Decreased peripheral vision Specialty Discharge - Follow Up or Referrals
--- NOTE | 2017-01-26 14:31 | EKG Report ---
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
[2017-01-26] MEDS ORDERED: INSULIN REGULAR DRIP 100 ML IV ONE (14:44)
[2017-01-26] MEDS ORDERED: INSULIN REGULAR DRIP 100 ML IV SCH (15:00)
[2017-01-26] MEDS ORDERED: NITROPRUSSIDE 50 MG/2 ML VIAL IV PRN (15:50)
[2017-01-26] MEDS: INSULIN REGULAR 100 UNIT/ML IV PRN (16:33)
--- NOTE | 2017-01-26 18:12 | Anesthesia ---
Anesthesia Post OP - Post Ansesthetic Evaluation Patient seen in post op: Yes Resp: other (vent) CV: other (ntg infus) Mental: other (sedated but starting to arouse) Temp: within normal limits Fpti-Xc-Qsyxooism: within normal limits Nausea and Vomiting: within normal limits Pain: within normal limits
[2017-01-26] MEDS: CEFUROXIME INJ 1,500 MG in SODIUM CHLORIDE 0.9% 100 ML IV SCH (20:03)
[2017-01-26] MEDS: MORPHINE 10 MG/1 ML VIAL IV PRN ×2 (20:30→23:20)
[2017-01-26] MEDS: MIDAZOLAM 2 MG/2 ML VIAL IV PRN ×3 (20:40→23:40)
[2017-01-26] MEDS: DEXMEDETOMIDINE 200 MCG in SODIUM CHLORIDE 0.9% 48 ML IV SCH (22:16)
[2017-01-26 23:27] LABS: ABG Base Excess -0.3 MMOL/L (-2.5-2.5); ABG HCO3 24.1 MMOL/L (20-26); ABG Oxygen Saturation 95.8 % (95-100); ABG PCO2 37.5 MM HG (35-48); ABG PH 7.414 (7.35-7.45); ABG PO2 76.8 MM HG (80-95); ABG TCO2 22.1 MMOL/L (23-27); Glucose Heart Surgery 114 MG/DL (74-106); Hematocrit Heart Surgery 27.7 PERCENT (42-52); Hemoglobin Heart Surgery 8.9 G/DL (14.0-18.0); Potassium Heart/CVR 3.9 MMOL/L (3.5-5.1)
[2017-01-27] MEDS: SODIUM CHLORIDE 0.45% 1,000 ML IV SCH ×3 (02:55→19:36)
[2017-01-27 04:24] LABS: Hematocrit 26.5 VOL% (42.0-52.0); Hemoglobin 8.8 GM/DL (14.0-18.0); Immature Granulocytes % 0.4 %; Immature Granulocytes Absolute 0.04 #; Lymphocytes # 0.6 10*3/uL (1.4-4.0); Lymphocytes % 5.8 % (21.2-54.2); Mean Corpuscular HGB Conc 33.2 GM/DL (32-36); Mean Corpuscular Hemoglobin 31 PG (27-34); Mean Corpuscular Volume 93.6 FL (87-102); Mean Platelet Volume 10.3 FL (9.6-12.0); Monocytes # 0.5 10*3/uL (0.11-0.8); Monocytes % 4.8 % (1.7-12.7); Neutrophils # 8.5 10*3/uL (1.4-7.4); Platelet Count 135 T/CUMM (130-400); Red Blood Count 2.83 MC/CUMM (3.8-5.5); Red Cell Distribution Width 13.7 % (9.3-17.3); White Blood Count 9.5 T/CUMM (4-12)
[2017-01-27 04:29] LABS: ABG Base Excess -1.6 MMOL/L (-2.5-2.5); ABG PCO2 38.9 MM HG (35-48); ABG PH 7.383 (7.35-7.45); ABG PO2 71.1 MM HG (80-95); ABG TCO2 21.1 MMOL/L (23-27); Glucose Heart Surgery 145 MG/DL (74-106); Hematocrit Heart Surgery 31.7 PERCENT (42-52); Hemoglobin Heart Surgery 10.2 G/DL (14.0-18.0); Potassium Heart/CVR 4.5 MMOL/L (3.5-5.1)
[2017-01-27] MEDS: DEXMEDETOMIDINE 200 MCG in SODIUM CHLORIDE 0.9% 48 ML IV SCH ×2 (04:45→21:50)
[2017-01-27] MEDS: INSULIN REGULAR 100 UNIT/ML IV PRN (04:50)
[2017-01-27 04:53] LABS: Calcium 7.6 MG/DL (8.5-10.1); Magnesium 2.3 MG/DL (1.8-2.4); Osmolality,Calculated 282.4 MOS/KG (273-304); Potassium 4.5 MMOL/L (3.5-5.1)
[2017-01-27 05:32] LABS: ABG Base Excess -2.2 MMOL/L (-2.5-2.5); ABG HCO3 22.6 MMOL/L (20-26); ABG Oxygen Saturation 95.8 % (95-100); ABG PCO2 38.8 MM HG (35-48); ABG PH 7.376 (7.35-7.45); ABG PO2 78.8 MM HG (80-95); Glucose Heart Surgery 135 MG/DL (74-106); Hematocrit Heart Surgery 28.1 PERCENT (42-52); Hemoglobin Heart Surgery 9.1 G/DL (14.0-18.0); Potassium Heart/CVR 4.2 MMOL/L (3.5-5.1)
--- NOTE | 2017-01-27 06:32 | Cardiology Progress Note ---
Cardiology - PN: Subj Interval history: Cardiology note Postop day #1 SAMUEL graft to diagonal and vein graft OM 2. Preop EF 55%. LAD diffusely diseased and unsuitable for bypass Telemetry shows sinus rhythm in 70s O2 sat 95 on 40% FiO2 Blood pressure 117/42 off nitroglycerin Less than 200 cc drainage in all 3 chest tubes Decreased breath sounds few crackles in the right base Regular rhythm Abdomen benign Lab data today White count 9.5 hemoglobin 8.8 hematocrit 26.5 Sodium 140 potassium 4.5 chloride 108 CO2 25 BUN 14 creatinine 0.90 Glucose 144 magnesium 2.3 Impression Postop day 1 SAMUEL graft to diagonal and vein graft OM 2 with preop EF 55% Diabetes Hypertension Hyperlipidemia Status post circumflex stent 2013 Plan Weaning vent. Expect extubation later today Insulin drip Accu-Chek sugars Spirometry Exam (Progress Note) - Constitutional Vitals: Period Temp Pulse Resp BP Sys/Reed Pulse Ox Last 24 Hr 96.7 F-99.7 F 64-85 8-15 118-210/42-72 93-99 Result/EKG - Labs CBC & BMP: 01/27/17 04:21 01/27/17 04:22 Labs: Laboratory Results - last 24 hr 01/25/17 01/26/17 01/26/17 10:13 07:00 07:23 WBC RBC Hgb Hct MCV MCH MCHC RDW Plt Count 132 D MPV Neut % (Auto) Lymph % (Auto) [place] % (Auto) Eos % (Auto) Baso % (Auto) Neut # (Auto) Lymph # (Auto) [place] # (Auto) Eos # (Auto) Baso # (Auto) Immature Gran % Nucleated RBC % Immature Gran # Nucleated RBCs # INR PT Patient/Control Mix Circ Anticoag PTT Patient Temperature ABG pH ABG pH at Pt Temp ABG pCO2 ABG pCO2 at Pt Temp ABG pO2 ABG pO2 at Pt Temp ABG HCO3 ABG Total CO2 ABG O2 Saturation ABG Base Excess ABG Sodium VBG pH VBG pCO2 VBG pO2 VBG HCO3 VBG Total CO2 VBG O2 Saturation VBG Base Excess Hemoglobin Hematocrit Potassium Glucose Ionized Calcium FiO2 Sodium Chloride Carbon Dioxide Anion Gap BUN Creatinine GFR Calculation BUN/Creatinine Ratio Calculated Osmolality Lactic Acid Calcium Venous Ioniz Calcium Magnesium Urine Color Straw Urine Appearance Clear Urine pH 6.0 Ur Specific [place] 1.009 Urine Protein Negative Urine Glucose (UA) Negative Urine Ketones Negative Urine Blood Negative Urine Nitrate Negative Urine Bilirubin Negative Urine Urobilinogen < 2.0 H Urine Leukocytes Negative Urine RBC 2 Urine WBC 1 Ur Culture Indicated? Not indicated Blood Type A POSITIVE Antibody Screen Negative Crossmatch See Detail 01/26/17 01/26/17 01/26/17 07:23 08:57 09:25 WBC RBC Hgb Hct MCV MCH MCHC RDW Plt Count MPV Neut % (Auto) Lymph % (Auto) [place] % (Auto) Eos % (Auto) Baso % (Auto) Neut # (Auto) Lymph # (Auto) [place] # (Auto) Eos # (Auto) Baso # (Auto) Immature Gran % Nucleated RBC % Immature Gran # Nucleated RBCs # INR PT Patient/Control Mix Circ Anticoag PTT Patient Temperature 37 37 36 ABG pH 7.411 ABG pH at Pt Temp 7.411 7.433 7.480 ABG pCO2 38.9 ABG pCO2 at Pt Temp 38.9 37.2 34.1 ABG pO2 191.0 H ABG pO2 at Pt Temp 191.0 41.4 32.4 ABG HCO3 24.7 ABG Total CO2 21.7 L ABG O2 Saturation 99.5 ABG Base Excess 0.3 ABG Sodium 141 134 L 130 L VBG pH 7.433 7.465 VBG pCO2 37.2 L 35.7 L VBG pO2 41.4 H 34.8 VBG HCO3 24.8 25.9 VBG Total CO2 23.3 24.1 VBG O2 Saturation 78.6 70.4 VBG Base Excess 0.7 2.1 Hemoglobin 12.6 L 7.8 L D 7.7 L Hematocrit 38.9 L 24.3 L 24.1 L Potassium 3.6 4.3 6.4 H* Glucose 106 228 H 305 H Ionized Calcium 1.16 L FiO2 21.00 80.00 Sodium Chloride Carbon Dioxide Anion Gap BUN Creatinine GFR Calculation BUN/Creatinine Ratio Calculated Osmolality Lactic Acid Calcium Venous Ioniz Calcium 0.96 L 0.96 L Magnesium Urine Color Urine Appearance Urine pH Ur Specific [place] Urine Protein Urine Glucose (UA) Urine Ketones Urine Blood Urine Nitrate Urine Bilirubin Urine Urobilinogen Urine Leukocytes Urine RBC Urine WBC Ur Culture Indicated? Blood Type Antibody Screen Crossmatch 01/26/17 01/26/17 01/26/17 10:06 10:10 12:00 WBC 6.6 D RBC 3.16 L D Hgb 9.7 L D Hct 28.8 L MCV 91.1 MCH 31 MCHC 33.7 RDW 13.2 Plt Count 91 L D 154 D MPV 9.7 Neut % (Auto) 82.5 H Lymph % (Auto) 10.0 L [place] % (Auto) 5.9 Eos % (Auto) 0.6 Baso % (Auto) 0.2 Neut # (Auto) 5.4 Lymph # (Auto) 0.7 L [place] # (Auto) 0.4 Eos # (Auto) 0.0 Baso # (Auto) 0.0 Immature Gran % 0.8 Nucleated RBC % 0.0 Immature Gran # 0.05 Nucleated RBCs # 0.00 INR PT Patient/Control Mix Circ Anticoag PTT Patient Temperature 37 ABG pH 7.452 H ABG pH at Pt Temp 7.452 ABG pCO2 35.0 ABG pCO2 at Pt Temp 35.0 ABG pO2 121.0 H ABG pO2 at Pt Temp 121.0 ABG HCO3 25.1 ABG Total CO2 22.5 L ABG O2 Saturation 99.0 ABG Base Excess 0.7 ABG Sodium 134 L VBG pH VBG pCO2 VBG pO2 VBG HCO3 VBG Total CO2 VBG O2 Saturation VBG Base Excess Hemoglobin 8.7 L Hematocrit 26.9 L Potassium 4.0 Glucose 252 H Ionized Calcium 1.19 L FiO2 Sodium Chloride Carbon Dioxide Anion Gap BUN Creatinine GFR Calculation BUN/Creatinine Ratio Calculated Osmolality Lactic Acid Calcium Venous Ioniz Calcium Magnesium Urine Color Urine Appearance Urine pH Ur Specific [place] Urine Protein Urine Glucose (UA) Urine Ketones Urine Blood Urine Nitrate Urine Bilirubin Urine Urobilinogen Urine Leukocytes Urine RBC Urine WBC Ur Culture Indicated? Blood Type Antibody Screen Crossmatch 01/26/17 01/26/17 01/26/17 12:00 12:00 12:04 WBC RBC Hgb Hct MCV MCH MCHC RDW Plt Count MPV Neut % (Auto) Lymph % (Auto) [place] % (Auto) Eos % (Auto) Baso % (Auto) Neut # (Auto) Lymph # (Auto) [place] # (Auto) Eos # (Auto) Baso # (Auto) Immature Gran % Nucleated RBC % Immature Gran # Nucleated RBCs # INR 1.3 PT Patient/Control Mix 13.4 Circ Anticoag PTT 30.8 D Patient Temperature ABG pH 7.497 H ABG pH at Pt Temp ABG pCO2 31.4 L ABG pCO2 at Pt Temp ABG pO2 76.2 L ABG pO2 at Pt Temp ABG HCO3 23.8 ABG Total CO2 24.7 ABG O2 Saturation 95.5 ABG Base Excess 1.0 ABG Sodium VBG pH VBG pCO2 VBG pO2 VBG HCO3 VBG Total CO2 VBG O2 Saturation VBG Base Excess Hemoglobin 10.6 L Hematocrit 31.0 L Potassium 3.1 L 2.8 L Glucose 160 H 156 H Ionized Calcium FiO2 Sodium 141 Chloride 106 Carbon Dioxide 24 Anion Gap 14.1 BUN 10 Creatinine 0.90 GFR Calculation 89 BUN/Creatinine Ratio 11.00 Calculated Osmolality 282.3 Lactic Acid 2.6 H Calcium 8.1 L Venous Ioniz Calcium Magnesium 1.7 L Urine Color Urine Appearance Urine pH Ur Specific [place] Urine Protein Urine Glucose (UA) Urine Ketones Urine Blood Urine Nitrate Urine Bilirubin Urine Urobilinogen Urine Leukocytes Urine RBC Urine WBC Ur Culture Indicated? Blood Type Antibody Screen Crossmatch 01/26/17 01/26/17 01/27/17 18:32 23:20 04:20 WBC RBC Hgb Hct MCV MCH MCHC RDW Plt Count MPV Neut % (Auto) Lymph % (Auto) [place] % (Auto) Eos % (Auto) Baso % (Auto) Neut # (Auto) Lymph # (Auto) [place] # (Auto) Eos # (Auto) Baso # (Auto) Immature Gran % Nucleated RBC % Immature Gran # Nucleated RBCs # INR PT Patient/Control Mix Circ Anticoag PTT Patient Temperature ABG pH 7.414 7.383 ABG pH at Pt Temp ABG pCO2 37.5 38.9 ABG pCO2 at Pt Temp ABG pO2 76.8 L 71.1 L ABG pO2 at Pt Temp ABG HCO3 24.1 23.0 ABG Total CO2 22.1 L 21.1 L ABG O2 Saturation 95.8 94.0 L ABG Base Excess -0.3 -1.6 ABG Sodium VBG pH VBG pCO2 VBG pO2 VBG HCO3 VBG Total CO2 VBG O2 Saturation VBG Base Excess Hemoglobin 8.9 L 10.2 L Hematocrit 27.7 L 31.7 L Potassium 3.7 3.9 4.5 Glucose 114 H 145 H Ionized Calcium FiO2 Sodium Chloride Carbon Dioxide Anion Gap BUN Creatinine GFR Calculation BUN/Creatinine Ratio Calculated Osmolality Lactic Acid Calcium Venous Ioniz Calcium Magnesium Urine Color Urine Appearance Urine pH Ur Specific [place] Urine Protein Urine Glucose (UA) Urine Ketones Urine Blood Urine Nitrate Urine Bilirubin Urine Urobilinogen Urine Leukocytes Urine RBC Urine WBC Ur Culture Indicated? Blood Type Antibody Screen Crossmatch 01/27/17 01/27/17 01/27/17 04:21 04:22 05:20 WBC 9.5 D RBC 2.83 L Hgb 8.8 L Hct 26.5 L MCV 93.6 MCH 31 MCHC 33.2 RDW 13.7 Plt Count 135 MPV 10.3 Neut % (Auto) 89.0 H Lymph % (Auto) 5.8 L [place] % (Auto) 4.8 Eos % (Auto) 0.0 Baso % (Auto) 0.0 Neut # (Auto) 8.5 H Lymph # (Auto) 0.6 L [place] # (Auto) 0.5 Eos # (Auto) 0.0 Baso # (Auto) 0.0 Immature Gran % 0.4 Nucleated RBC % 0.0 Immature Gran # 0.04 Nucleated RBCs # 0.00 INR PT Patient/Control Mix Circ Anticoag PTT Patient Temperature ABG pH 7.376 ABG pH at Pt Temp ABG pCO2 38.8 ABG pCO2 at Pt Temp ABG pO2 78.8 L ABG pO2 at Pt Temp ABG HCO3 22.6 ABG Total CO2 21.0 L ABG O2 Saturation 95.8 ABG Base Excess -2.2 ABG Sodium VBG pH VBG pCO2 VBG pO2 VBG HCO3 VBG Total CO2 VBG O2 Saturation VBG Base Excess Hemoglobin 9.1 L Hematocrit 28.1 L Potassium 4.5 4.2 Glucose 144 H 135 H Ionized Calcium FiO2 Sodium 140 Chloride 108 H Carbon Dioxide 25 Anion Gap 11.5 BUN 14 Creatinine 0.90 GFR Calculation 89 BUN/Creatinine Ratio 15.00 Calculated Osmolality 282.4 Lactic Acid Calcium 7.6 L Venous Ioniz Calcium Magnesium 2.3 Urine Color Urine Appearance Urine pH Ur Specific [place] Urine Protein Urine Glucose (UA) Urine Ketones Urine Blood Urine Nitrate Urine Bilirubin Urine Urobilinogen Urine Leukocytes Urine RBC Urine WBC Ur Culture Indicated? Blood Type Antibody Screen Crossmatch Quality Measures - VTE Contraindication to Pharmacological VTE Prophylaxis: Active Bleeding - Stroke Presenting Symptoms: Decreased peripheral vision Specialty Discharge - Follow Up or Referrals
[2017-01-27 06:35] LABS: ABG Base Excess -1.8 MMOL/L (-2.5-2.5); ABG HCO3 22.9 MMOL/L (20-26); ABG Oxygen Saturation 96.3 % (95-100); ABG PCO2 37.8 MM HG (35-48); ABG PH 7.389 (7.35-7.45); ABG TCO2 21.1 MMOL/L (23-27); Glucose Heart Surgery 130 MG/DL (74-106); Hematocrit Heart Surgery 27.5 PERCENT (42-52); Hemoglobin Heart Surgery 8.9 G/DL (14.0-18.0); Potassium Heart/CVR 4.2 MMOL/L (3.5-5.1)
[2017-01-27] MEDS: POTASSIUM CHLORIDE RIDER 20 MEQ in PREMIX 1 EACH IV PRN (07:00)
[2017-01-27] MEDS: CEFUROXIME INJ 1,500 MG in SODIUM CHLORIDE 0.9% 100 ML IV SCH ×2 (07:35→19:51)
[2017-01-27 08:19] LABS: ABG Base Excess -2.8 MMOL/L (-2.5-2.5); ABG Oxygen Saturation 95.7 % (95-100); ABG PCO2 39.6 MM HG (35-48); ABG PO2 81.5 MM HG (80-95); ABG TCO2 20.6 MMOL/L (23-27); Glucose Heart Surgery 134 MG/DL (74-106); Hematocrit Heart Surgery 28.8 PERCENT (42-52); Hemoglobin Heart Surgery 9.3 G/DL (14.0-18.0); Potassium Heart/CVR 4.8 MMOL/L (3.5-5.1)
--- NOTE | 2017-01-27 08:21 | XRay Report ---
Portable chest Date: 01/27/2017 Clinical history: Postop, evaluate for pneumothorax Comparison: 01/26/2017 Technique: Portable AP sitting chest Findings: The heart remains minimally enlarged with the recent median sternotomy. The supported devices are stable in position with persistent atelectasis/edema at the lung bases. Small pleural effusions with no definite pneumothorax. Degenerative changes are noted. Impression: Recent median sternotomy with no definite pneumothorax. Residual atelectasis/edema at the lung bases with small pleural effusions. PROCEDURE INTERPRETED AT [facility] DEPARTMENT OF RADIOLOGY Final Report Signed by: Dr. Bobbi Kerr
[2017-01-27] MEDS: MORPHINE 2 MG/1 ML SYRINGE IV PRN ×2 (08:40→09:10)
[2017-01-27] MEDS: FUROSEMIDE 40 MG TABLET PO SCH (09:02)
[2017-01-27] MEDS: ASPIRIN EC 325 MG TABLET PO SCH (09:02)
[2017-01-27] MEDS: KETOROLAC 30 MG/1 ML VIAL IV PRN ×3 (10:10→23:37)
[2017-01-27] MEDS ORDERED: GLUCAGON 1 MG VIAL IM PRN (10:52)
--- NOTE | 2017-01-27 11:35 | Cardiothoracic Progress Note ---
Assessment and Plan (1) CAD (coronary artery disease) Status: Chronic Assessment and plan: Postoperative day 1 status post CABG 2. The patient has been doing very well. We will keep him in the intensive care unit today for observation as he is still lethargic. His hemodynamics are stable. We will start aspirin, Lipitor, Lasix. We will also advance his diet and get him out of bed today if possible. Current Visit: Yes Cardiothoracic Subjective Interval history: Patient is doing very well without any problems. He continues to progress without any problem. He was extubated this morning and doing well with nasal cannula now. He still lethargic. Exam (Progress Note) - Constitutional Vitals: Period Temp Pulse Resp BP Sys/Reed Pulse Ox Last 24 Hr 96.9 F-99.9 F 66-85 8-24 104-166/42-60 93-99 Result/EKG - Labs CBC & BMP: 01/27/17 04:21 01/27/17 04:22 Labs: Laboratory Results - last 24 hr 01/25/17 01/26/17 01/26/17 10:13 12:00 12:00 WBC 6.6 D RBC 3.16 L D Hgb 9.7 L D Hct 28.8 L MCV 91.1 MCH 31 MCHC 33.7 RDW 13.2 Plt Count 154 D MPV 9.7 Neut % (Auto) 82.5 H Lymph % (Auto) 10.0 L Eddy % (Auto) 5.9 Eos % (Auto) 0.6 Baso % (Auto) 0.2 Neut # (Auto) 5.4 Lymph # (Auto) 0.7 L Eddy # (Auto) 0.4 Eos # (Auto) 0.0 Baso # (Auto) 0.0 Immature Gran % 0.8 Nucleated RBC % 0.0 Immature Gran # 0.05 Nucleated RBCs # 0.00 INR 1.3 PT Patient/Control Mix 13.4 Circ Anticoag PTT 30.8 D ABG pH ABG pCO2 ABG pO2 ABG HCO3 ABG Total CO2 ABG O2 Saturation ABG Base Excess Hemoglobin Hematocrit Sodium Potassium Chloride Carbon Dioxide Anion Gap BUN Creatinine GFR Calculation BUN/Creatinine Ratio Glucose Calculated Osmolality Lactic Acid Calcium Magnesium Blood Type A POSITIVE Antibody Screen Negative Crossmatch See Detail 01/26/17 01/26/17 01/26/17 12:00 12:04 18:32 WBC RBC Hgb Hct MCV MCH MCHC RDW Plt Count MPV Neut % (Auto) Lymph % (Auto) Eddy % (Auto) Eos % (Auto) Baso % (Auto) Neut # (Auto) Lymph # (Auto) Eddy # (Auto) Eos # (Auto) Baso # (Auto) Immature Gran % Nucleated RBC % Immature Gran # Nucleated RBCs # INR PT Patient/Control Mix Circ Anticoag PTT ABG pH 7.497 H ABG pCO2 31.4 L ABG pO2 76.2 L ABG HCO3 23.8 ABG Total CO2 24.7 ABG O2 Saturation 95.5 ABG Base Excess 1.0 Hemoglobin 10.6 L Hematocrit 31.0 L Sodium 141 Potassium 3.1 L 2.8 L 3.7 Chloride 106 Carbon Dioxide 24 Anion Gap 14.1 BUN 10 Creatinine 0.90 GFR Calculation 89 BUN/Creatinine Ratio 11.00 Glucose 160 H 156 H Calculated Osmolality 282.3 Lactic Acid 2.6 H Calcium 8.1 L Magnesium 1.7 L Blood Type Antibody Screen Crossmatch 01/26/17 01/27/17 01/27/17 23:20 04:20 04:21 WBC 9.5 D RBC 2.83 L Hgb 8.8 L Hct 26.5 L MCV 93.6 MCH 31 MCHC 33.2 RDW 13.7 Plt Count 135 MPV 10.3 Neut % (Auto) 89.0 H Lymph % (Auto) 5.8 L Eddy % (Auto) 4.8 Eos % (Auto) 0.0 Baso % (Auto) 0.0 Neut # (Auto) 8.5 H Lymph # (Auto) 0.6 L Eddy # (Auto) 0.5 Eos # (Auto) 0.0 Baso # (Auto) 0.0 Immature Gran % 0.4 Nucleated RBC % 0.0 Immature Gran # 0.04 Nucleated RBCs # 0.00 INR PT Patient/Control Mix Circ Anticoag PTT ABG pH 7.414 7.383 ABG pCO2 37.5 38.9 ABG pO2 76.8 L 71.1 L ABG HCO3 24.1 23.0 ABG Total CO2 22.1 L 21.1 L ABG O2 Saturation 95.8 94.0 L ABG Base Excess -0.3 -1.6 Hemoglobin 8.9 L 10.2 L Hematocrit 27.7 L 31.7 L Sodium Potassium 3.9 4.5 Chloride Carbon Dioxide Anion Gap BUN Creatinine GFR Calculation BUN/Creatinine Ratio Glucose 114 H 145 H Calculated Osmolality Lactic Acid Calcium Magnesium Blood Type Antibody Screen Crossmatch 01/27/17 01/27/17 01/27/17 04:22 05:20 06:15 WBC RBC Hgb Hct MCV MCH MCHC RDW Plt Count MPV Neut % (Auto) Lymph % (Auto) Eddy % (Auto) Eos % (Auto) Baso % (Auto) Neut # (Auto) Lymph # (Auto) Eddy # (Auto) Eos # (Auto) Baso # (Auto) Immature Gran % Nucleated RBC % Immature Gran # Nucleated RBCs # INR PT Patient/Control Mix Circ Anticoag PTT ABG pH 7.376 7.389 ABG pCO2 38.8 37.8 ABG pO2 78.8 L 80.0 ABG HCO3 22.6 22.9 ABG Total CO2 21.0 L 21.1 L ABG O2 Saturation 95.8 96.3 ABG Base Excess -2.2 -1.8 Hemoglobin 9.1 L 8.9 L Hematocrit 28.1 L 27.5 L Sodium 140 Potassium 4.5 4.2 4.2 Chloride 108 H Carbon Dioxide 25 Anion Gap 11.5 BUN 14 Creatinine 0.90 GFR Calculation 89 BUN/Creatinine Ratio 15.00 Glucose 144 H 135 H 130 H Calculated Osmolality 282.4 Lactic Acid Calcium 7.6 L Magnesium 2.3 Blood Type Antibody Screen Crossmatch 01/27/17 08:15 WBC RBC Hgb Hct MCV MCH MCHC RDW Plt Count MPV Neut % (Auto) Lymph % (Auto) Eddy % (Auto) Eos % (Auto) Baso % (Auto) Neut # (Auto) Lymph # (Auto) Eddy # (Auto) Eos # (Auto) Baso # (Auto) Immature Gran % Nucleated RBC % Immature Gran # Nucleated RBCs # INR PT Patient/Control Mix Circ Anticoag PTT ABG pH 7.360 ABG pCO2 39.6 ABG pO2 81.5 ABG HCO3 22.0 ABG Total CO2 20.6 L ABG O2 Saturation 95.7 ABG Base Excess -2.8 L Hemoglobin 9.3 L Hematocrit 28.8 L Sodium Potassium 4.8 Chloride Carbon Dioxide Anion Gap BUN Creatinine GFR Calculation BUN/Creatinine Ratio Glucose 134 H Calculated Osmolality Lactic Acid Calcium Magnesium Blood Type Antibody Screen Crossmatch Quality Measures - VTE Contraindication to Pharmacological VTE Prophylaxis: Active Bleeding - Stroke Presenting Symptoms: Decreased peripheral vision Specialty Discharge - Follow Up or Referrals
[2017-01-27] MEDS: CHLORHEXIDINE 0.12% ORAL RINSE 60 ML BOTTLE SWISH/SPIT SCH ×2 (12:00→21:49)
[2017-01-27] MEDS: INSULIN REGULAR 100 UNIT/ML SUBCUT SCH ×5 (12:54→23:42)
[2017-01-27] MEDS: ALBUMIN 5% 12.5 GM in PREMIX 1 EACH IV PRN (13:15)
[2017-01-27] MEDS ORDERED: INSULIN REGULAR 100 UNIT/ML SUBCUT SCH (15:00)
[2017-01-27] MEDS: NITROPRUSSIDE 100 MG in DEXTROSE 5% 246 ML IV SCH (16:53)
[2017-01-27] MEDS: NITROGLYCERIN DRIP 50 MG/250 ML BOTTLE IV SCH (16:54)
[2017-01-27] MEDS ORDERED: diphenhydrAMINE 50 MG/1 ML VIAL IV ONE (21:26)
[2017-01-27] MEDS: ATORVASTATIN 40 MG TABLET PO SCH (21:38)
[2017-01-28 05:46] LABS: Hematocrit 25.7 VOL% (42.0-52.0); Hemoglobin 8.4 GM/DL (14.0-18.0); Immature Granulocytes % 0.6 %; Immature Granulocytes Absolute 0.06 #; Lymphocytes # 0.6 10*3/uL (1.4-4.0); Lymphocytes % 5.4 % (21.2-54.2); Mean Corpuscular HGB Conc 32.7 GM/DL (32-36); Mean Corpuscular Hemoglobin 31 PG (27-34); Mean Corpuscular Volume 94.1 FL (87-102); Mean Platelet Volume 10.5 FL (9.6-12.0); Monocytes # 0.9 10*3/uL (0.11-0.8); Monocytes % 8.4 % (1.7-12.7); Neutrophils # 8.8 10*3/uL (1.4-7.4); Neutrophils % 85.6 % (38.7-73.9); Platelet Count 129 T/CUMM (130-400); Red Blood Count 2.73 MC/CUMM (3.8-5.5); Red Cell Distribution Width 14.6 % (9.3-17.3); White Blood Count 10.3 T/CUMM (4-12)
[2017-01-28 06:13] LABS: Calcium 8.1 MG/DL (8.5-10.1); Magnesium 2.6 MG/DL (1.8-2.4); Osmolality,Calculated 283.5 MOS/KG (273-304); Potassium 4.7 MMOL/L (3.5-5.1)
[2017-01-28] MEDS: INSULIN REGULAR 100 UNIT/ML SUBCUT SCH ×5 (06:29→21:24)
--- NOTE | 2017-01-28 06:33 | Cardiology Progress Note ---
Cardiology - PN: Subj Interval history: Cardiology note Postop day #2 SAMUEL graft to diagonal and vein graft OM. Preop EF 55%. LAD was diffusely diseased and unsuitable for bypass Awake alert and responsive. Telemetry shows sinus rhythm in the 80s O2 sat 93 on 2 L cannula Blood pressure 156/78 Regular rhythm no murmur or gallop Incision looks good Decreased breath sounds few basilar crackles on the right Lab data today Hemoglobin 8.4 hematocrit 25.7 white count 10.3 sodium 139 potassium 4.7 chloride 108 CO2 26 BUN 20 creatinine 1.0 Glucose 120 magnesium 2.6 Impression Postop day #2 SAMUEL graft to diagonal and vein graft OM with preop EF 55% Diabetes Hypertension Hypercholesterolemia Status post circumflex stent 2012 Plan Transfer to telemetry okay with me Restart carvedilol 3.125 mg twice daily Restart lisinopril 5 mg daily Accu-Chek sugars Exam (Progress Note) - Constitutional Vitals: Period Temp Pulse Resp BP Sys/Reed Pulse Ox Last 24 Hr 99.6 F-100.5 F 74-97 11-25 104-155/43-78 91-98 Result/EKG - Labs CBC & BMP: 01/28/17 05:30 01/28/17 05:30 Labs: Laboratory Results - last 24 hr 01/25/17 01/27/17 01/27/17 10:13 06:15 08:15 WBC RBC Hgb Hct MCV MCH MCHC RDW Plt Count MPV Neut % (Auto) Lymph % (Auto) [place] % (Auto) Eos % (Auto) Baso % (Auto) Neut # (Auto) Lymph # (Auto) [place] # (Auto) Eos # (Auto) Baso # (Auto) Immature Gran % Nucleated RBC % Immature Gran # Nucleated RBCs # ABG pH 7.389 7.360 ABG pCO2 37.8 39.6 ABG pO2 80.0 81.5 ABG HCO3 22.9 22.0 ABG Total CO2 21.1 L 20.6 L ABG O2 Saturation 96.3 95.7 ABG Base Excess -1.8 -2.8 L Hemoglobin 8.9 L 9.3 L Hematocrit 27.5 L 28.8 L Potassium 4.2 4.8 Glucose 130 H 134 H Sodium Chloride Carbon Dioxide Anion Gap BUN Creatinine GFR Calculation BUN/Creatinine Ratio POC Glucose Calculated Osmolality Calcium Magnesium Blood Type A POSITIVE Antibody Screen Negative Crossmatch See Detail 01/27/17 01/27/17 01/27/17 11:52 16:21 19:57 WBC RBC Hgb Hct MCV MCH MCHC RDW Plt Count MPV Neut % (Auto) Lymph % (Auto) [place] % (Auto) Eos % (Auto) Baso % (Auto) Neut # (Auto) Lymph # (Auto) [place] # (Auto) Eos # (Auto) Baso # (Auto) Immature Gran % Nucleated RBC % Immature Gran # Nucleated RBCs # ABG pH ABG pCO2 ABG pO2 ABG HCO3 ABG Total CO2 ABG O2 Saturation ABG Base Excess Hemoglobin Hematocrit Potassium Glucose Sodium Chloride Carbon Dioxide Anion Gap BUN Creatinine GFR Calculation BUN/Creatinine Ratio POC Glucose 131 H 130 H 149 H Calculated Osmolality Calcium Magnesium Blood Type Antibody Screen Crossmatch 01/27/17 01/28/17 01/28/17 23:42 05:30 05:30 WBC 10.3 RBC 2.73 L Hgb 8.4 L Hct 25.7 L MCV 94.1 MCH 31 MCHC 32.7 RDW 14.6 Plt Count 129 L MPV 10.5 Neut % (Auto) 85.6 H Lymph % (Auto) 5.4 L [place] % (Auto) 8.4 Eos % (Auto) 0.0 Baso % (Auto) 0.0 Neut # (Auto) 8.8 H Lymph # (Auto) 0.6 L [place] # (Auto) 0.9 H Eos # (Auto) 0.0 Baso # (Auto) 0.0 Immature Gran % 0.6 Nucleated RBC % 0.0 Immature Gran # 0.06 Nucleated RBCs # 0.00 ABG pH ABG pCO2 ABG pO2 ABG HCO3 ABG Total CO2 ABG O2 Saturation ABG Base Excess Hemoglobin Hematocrit Potassium 4.7 Glucose 120 H Sodium 139 Chloride 108 H Carbon Dioxide 26 Anion Gap 9.7 BUN 28 H Creatinine 1.00 GFR Calculation 81 BUN/Creatinine Ratio 28.00 H POC Glucose 105 Calculated Osmolality 283.5 Calcium 8.1 L Magnesium 2.6 H Blood Type Antibody Screen Crossmatch Quality Measures - VTE Contraindication to Pharmacological VTE Prophylaxis: Active Bleeding - Stroke Presenting Symptoms: Decreased peripheral vision Specialty Discharge - Follow Up or Referrals
[2017-01-28] MEDS: SODIUM CHLORIDE 0.45% 1,000 ML IV SCH ×2 (07:43→07:44)
[2017-01-28] MEDS: ASPIRIN EC 325 MG TABLET PO SCH (08:30)
[2017-01-28] MEDS: CARVEDILOL 3.125 MG TABLET PO SCH ×2 (08:30→21:25)
[2017-01-28] MEDS: LISINOPRIL 5 MG TABLET PO SCH (08:30)
[2017-01-28] MEDS: FUROSEMIDE 40 MG TABLET PO SCH (08:30)
[2017-01-28] MEDS: CHLORHEXIDINE 0.12% ORAL RINSE 60 ML BOTTLE SWISH/SPIT SCH ×2 (08:31→21:30)
[2017-01-28] MEDS: KETOROLAC 30 MG/1 ML VIAL IV PRN ×3 (09:01→19:26)
--- NOTE | 2017-01-28 09:15 | XRay Report ---
Portable chest Date: 01/28/2017 Clinical history: Evaluate for pneumothorax Comparison: 01/27/2017 Technique: Portable AP sitting chest Findings: Persistent cardiomegaly in patient with recent median sternotomy. Removal of the endotracheal tube and nasogastric tube. Stable right IJ CVP line and chest tubes. No definite pneumothorax is identified. Reduced pleural and parenchymal findings at the lung bases. Impression: Status post median sternotomy with no definite pneumothorax. Reduced atelectasis/edema at the lung bases with smaller pleural effusions. PROCEDURE INTERPRETED AT [facility] DEPARTMENT OF RADIOLOGY Final Report Signed by: Dr. Bobbi Kerr
[2017-01-28] MEDS: NITROPRUSSIDE 100 MG in DEXTROSE 5% 246 ML IV SCH (12:18)
[2017-01-28] MEDS: NITROGLYCERIN DRIP 50 MG/250 ML BOTTLE IV SCH (12:18)
[2017-01-28] MEDS: ALBUTEROL/IPRATROPIUM 3 ML NEB RESP TX PRN ×2 (13:38→19:29)
[2017-01-28] MEDS: ATORVASTATIN 40 MG TABLET PO SCH (21:25)
[2017-01-29] MEDS: INSULIN REGULAR 100 UNIT/ML SUBCUT SCH ×4 (00:01→17:11)
[2017-01-29] MEDS: KETOROLAC 30 MG/1 ML VIAL IV PRN ×2 (04:08→10:37)
[2017-01-29 05:30] LABS: Basophils % 0.1 % (0.0-0.8); Eosinophils % 0.1 % (0.00-10.9); Hematocrit 24.6 VOL% (42.0-52.0); Hemoglobin 8.2 GM/DL (14.0-18.0); Immature Granulocytes % 1.1 %; Immature Granulocytes Absolute 0.11 #; Lymphocytes % 10.7 % (21.2-54.2); Mean Corpuscular HGB Conc 33.3 GM/DL (32-36); Mean Corpuscular Hemoglobin 31 PG (27-34); Mean Corpuscular Volume 92.8 FL (87-102); Mean Platelet Volume 11.2 FL (9.6-12.0); Monocytes # 0.9 10*3/uL (0.11-0.8); Monocytes % 8.9 % (1.7-12.7); Neutrophils # 7.6 10*3/uL (1.4-7.4); Neutrophils % 79.1 % (38.7-73.9); Platelet Count 152 T/CUMM (130-400); Red Blood Count 2.65 MC/CUMM (3.8-5.5); Red Cell Distribution Width 14.5 % (9.3-17.3); White Blood Count 9.6 T/CUMM (4-12)
[2017-01-29 05:59] LABS: Calcium 7.9 MG/DL (8.5-10.1); Magnesium 2.4 MG/DL (1.8-2.4); Osmolality,Calculated 293.8 MOS/KG (273-304); Potassium 4.1 MMOL/L (3.5-5.1)
[2017-01-29] MEDS ORDERED: SODIUM CHLORIDE 0.9% 250 ML IV PRN (07:16)
[2017-01-29] MEDS ORDERED: FUROSEMIDE 40 MG/4 ML VIAL IV ONE (07:17)
--- NOTE | 2017-01-29 07:28 | XRay Report ---
XR chest 1V portable Indication: Pneumothorax Comparison: 28 January 2017 Findings: The heart and mediastinum are stable in size and configuration with cardiac surgery changes. Mediastinal drains been removed. Chest tube and right internal jugular catheters are unchanged in position. The pulmonary vascularity is prominent but similar to previous. No lung infiltrates, effusions, pneumothorax or other abnormality is demonstrated. Impression: Removal of mediastinal drains. No other significant changes. PROCEDURE INTERPRETED AT [facility] DEPARTMENT OF RADIOLOGY Final Report Signed by: Dr. Cale Molina
[2017-01-29] MEDS: MORPHINE 2 MG/1 ML SYRINGE IV PRN (08:00)
[2017-01-29] MEDS: ASPIRIN EC 325 MG TABLET PO SCH (10:32)
[2017-01-29] MEDS: CARVEDILOL 3.125 MG TABLET PO SCH ×2 (10:32→21:13)
[2017-01-29] MEDS: LISINOPRIL 5 MG TABLET PO SCH (10:32)
[2017-01-29] MEDS: FUROSEMIDE 40 MG TABLET PO SCH (11:03)
[2017-01-29] MEDS: CHLORHEXIDINE 0.12% ORAL RINSE 60 ML BOTTLE SWISH/SPIT SCH ×2 (11:03→21:13)
--- NOTE | 2017-01-29 11:19 | XRay Report ---
XR chest 2V Indication: Chest tube removal Comparison: 29 January 2017 Findings: The heart and mediastinum are stable in size and configuration with cardiac surgery changes. Chest tube is been removed on the left. Right internal jugular catheters unchanged in position.. The pulmonary vascularity is normal in caliber. The basilar increased density and small effusions are present similar to previous studies. No other lung infiltrates, effusions, pneumothorax or other abnormality is demonstrated. Impression: Removal of chest tube. No other significant change. PROCEDURE INTERPRETED AT [facility] DEPARTMENT OF RADIOLOGY Final Report Signed by: Dr. Cale Molina
[2017-01-29] MEDS ORDERED: LISINOPRIL 10 MG TABLET PO SCH (12:22)
--- NOTE | 2017-01-29 12:47 | Cardiology Progress Note ---
<Kiley Woods Nola - Last Filed: 01/29/17 12:39> Assessment and Plan - Time spent with patient Time spent with patient: Less than 30 minutes (1) Status post coronary artery bypass graft Status: Acute Assessment and plan: POD #3 CABG 2 with SAMUEL to diagonal and vein graft to second OM.. Patient is doing well. Increased lisinopril to 10 mg p.o. daily. Will continue to monitor and adjust as needed. Current Visit: Yes (2) CAD (coronary artery disease) Status: Chronic Assessment and plan: [facility] on 01/24/17 revealed LAD calcification all the way to the apex, first diagonal branch with 50-60%, 80% in posterior descending artery, OM1 stent site occluded with retrograde filling. On 01/26/17, patient underwent CABG x2 with SAMUEL to diagonal and VG to 2nd OM with Dr. Flanagan. Current Visit: Yes (3) Diabetes Status: Chronic Assessment and plan: Continue sliding scale. Current Visit: Yes (4) Hypercholesterolemia Status: Chronic Assessment and plan: Continue Atorvastatin. Current Visit: Yes (5) Hypertension Status: Chronic Assessment and plan: Suboptimally controlled. Will increase Lisinopril to 10mg po daily. Will continue to monitor and make further adjustments as needed. Current Visit: Yes Cardiology - PN: Subj Interval history: [employer]: DR. FUCHS PCP: DR. TOLBERT Mr. Lazo is an 81-year-old male, postop day #3 SAMUEL graft to diagonal and vein graft to OM. Preop ejection fraction is 55%. His LAD was diffusely diseased and unsuitable for bypass. Today upon exam, he is sitting up in the chair at the bedside, awake and alert. He is in no acute distress. Midline sternal incision is well approximated, no redness or edema. Mild drainage noted. Open to air. His left upper chest tube was removed per Dr. Julio Maldonado this morning. Since then, he has had some drainage from the site and dressing has required changing. He has been in a normal sinus rhythm with rates in the 80's. He has had several elevated blood pressure readings. His family is at the bedside and tells me the most recent blood pressure was obtained right after he had been up to ambulate to the bathroom and back to the bedside chair. His coreg 3.125mg po BID and Lisinopril 5mg po daily were resumed yesterday. We will increase his lisinopril back to his home dosage of 10mg po daily. He voices no other complaints presently. H&H 8.2 and 24.6 today. Creatinine 1.0, potassium 4.1. Exam (Progress Note) - Constitutional Vitals: Period Temp Pulse Resp BP Sys/Reed Pulse Ox Last 24 Hr 97.3 F-99.5 F 70-92 20-31 136-177/65-84 87-98 Exam: General: Present: Appears Well, No Apparent Distress. Pleasant and cooperative. Appears comfortable. HEENT: Present: PERRL, Normocephaly, atraumatic. Mucus Membranes Moist. No jaundice noted. Conjunctiva moist and clear, sclerae anicteric Neck: Present: Supple Neck, Midline Trachea, No Masses, No Bruit, No tenderness Cardiac: Present: Regular Rate and Rhythm, No Murmur Lungs: Present: Decreased breath sounds, few basilar crackles noted. Neuro: Present: Awake, alert, and oriented x3. Moves all extremities well without hemiparesis or paralysis. Grossly Intact. Absent: Resting Tremor, Essential Tremor Abdomen: Present: Soft, Active Bowel Sounds, No Masses, Non-Tender, nondistended. No abdominal bruit or thrill noted. Skin: Present: Midline sternal incision well approximated, no redness or edema. Mild drainage noted. Right lower extremity incision well approximated, no redness or edema; dressing to lower portion of wound with small amount of sanguineous drainage noted. Absent: Rash, No skin breakdown. Musculoskeletal: Present: No Fluid Collection, No Pain, Normal Range of Motion Extremities: Present: Normal Gait, No Clubbing, No Cyanosis, Upper Extr. Pulses 2+, Lower Extr. Pulses 2+, No edema. Capillary refill less than 3 seconds. Result/EKG - Labs CBC & BMP: 01/29/17 03:38 01/29/17 03:38 Lab Results: I have reviewed the past 24 hour labs Labs: Laboratory Results - last 24 hr 01/26/17 01/26/17 01/26/17 14:21 15:37 16:28 WBC RBC Hgb Hct MCV MCH MCHC RDW Plt Count MPV Neut % (Auto) Lymph % (Auto) [place] % (Auto) Eos % (Auto) Baso % (Auto) Neut # (Auto) Lymph # (Auto) [place] # (Auto) Eos # (Auto) Baso # (Auto) Immature Gran % Nucleated RBC % Immature Gran # Nucleated RBCs # Sodium Potassium Chloride Carbon Dioxide Anion Gap BUN Creatinine GFR Calculation BUN/Creatinine Ratio Glucose POC Glucose 171 H 178 H 171 H Calculated Osmolality Calcium Magnesium Blood Type Antibody Screen Crossmatch 01/26/17 01/26/17 01/26/17 17:30 18:28 20:13 WBC RBC Hgb Hct MCV MCH MCHC RDW Plt Count MPV Neut % (Auto) Lymph % (Auto) [place] % (Auto) Eos % (Auto) Baso % (Auto) Neut # (Auto) Lymph # (Auto) [place] # (Auto) Eos # (Auto) Baso # (Auto) Immature Gran % Nucleated RBC % Immature Gran # Nucleated RBCs # Sodium Potassium Chloride Carbon Dioxide Anion Gap BUN Creatinine GFR Calculation BUN/Creatinine Ratio Glucose POC Glucose 152 H 144 H 110 H Calculated Osmolality Calcium Magnesium Blood Type Antibody Screen Crossmatch 01/26/17 01/27/17 01/27/17 22:06 00:29 01:24 WBC RBC Hgb Hct MCV MCH MCHC RDW Plt Count MPV Neut % (Auto) Lymph % (Auto) [place] % (Auto) Eos % (Auto) Baso % (Auto) Neut # (Auto) Lymph # (Auto) [place] # (Auto) Eos # (Auto) Baso # (Auto) Immature Gran % Nucleated RBC % Immature Gran # Nucleated RBCs # Sodium Potassium Chloride Carbon Dioxide Anion Gap BUN Creatinine GFR Calculation BUN/Creatinine Ratio Glucose POC Glucose 100 97 120 H Calculated Osmolality Calcium Magnesium Blood Type Antibody Screen Crossmatch 01/27/17 01/27/17 01/27/17 02:20 04:14 07:13 WBC RBC Hgb Hct MCV MCH MCHC RDW Plt Count MPV Neut % (Auto) Lymph % (Auto) [place] % (Auto) Eos % (Auto) Baso % (Auto) Neut # (Auto) Lymph # (Auto) [place] # (Auto) Eos # (Auto) Baso # (Auto) Immature Gran % Nucleated RBC % Immature Gran # Nucleated RBCs # Sodium Potassium Chloride Carbon Dioxide Anion Gap BUN Creatinine GFR Calculation BUN/Creatinine Ratio Glucose POC Glucose 139 H 137 H 129 H Calculated Osmolality Calcium Magnesium Blood Type Antibody Screen Crossmatch 01/27/17 01/28/17 01/28/17 10:00 17:05 19:55 WBC RBC Hgb Hct MCV MCH MCHC RDW Plt Count MPV Neut % (Auto) Lymph % (Auto) [place] % (Auto) Eos % (Auto) Baso % (Auto) Neut # (Auto) Lymph # (Auto) [place] # (Auto) Eos # (Auto) Baso # (Auto) Immature Gran % Nucleated RBC % Immature Gran # Nucleated RBCs # Sodium Potassium Chloride Carbon Dioxide Anion Gap BUN Creatinine GFR Calculation BUN/Creatinine Ratio Glucose POC Glucose 125 H 149 H 185 H Calculated Osmolality Calcium Magnesium Blood Type Antibody Screen Crossmatch 01/28/17 01/29/17 01/29/17 23:43 03:37 03:38 WBC 9.6 RBC 2.65 L Hgb 8.2 L Hct 24.6 L MCV 92.8 MCH 31 MCHC 33.3 RDW 14.5 Plt Count 152 MPV 11.2 Neut % (Auto) 79.1 H Lymph % (Auto) 10.7 L [place] % (Auto) 8.9 Eos % (Auto) 0.1 Baso % (Auto) 0.1 Neut # (Auto) 7.6 H Lymph # (Auto) 1.0 L [place] # (Auto) 0.9 H Eos # (Auto) 0.0 Baso # (Auto) 0.0 Immature Gran % 1.1 Nucleated RBC % 0.0 Immature Gran # 0.11 Nucleated RBCs # 0.00 Sodium Potassium Chloride Carbon Dioxide Anion Gap BUN Creatinine GFR Calculation BUN/Creatinine Ratio Glucose POC Glucose 154 H Calculated Osmolality Calcium Magnesium Blood Type A POSITIVE Antibody Screen Negative Crossmatch See Detail 01/29/17 01/29/17 01/29/17 03:38 04:16 07:20 WBC RBC Hgb Hct MCV MCH MCHC RDW Plt Count MPV Neut % (Auto) Lymph % (Auto) [place] % (Auto) Eos % (Auto) Baso % (Auto) Neut # (Auto) Lymph # (Auto) [place] # (Auto) Eos # (Auto) Baso # (Auto) Immature Gran % Nucleated RBC % Immature Gran # Nucleated RBCs # Sodium 144 Potassium 4.1 Chloride 109 H Carbon Dioxide 28 Anion Gap 11.1 BUN 33 H Creatinine 1.00 GFR Calculation 80 BUN/Creatinine Ratio 33.00 H Glucose 112 H POC Glucose 129 H 109 H Calculated Osmolality 293.8 Calcium 7.9 L Magnesium 2.4 Blood Type Antibody Screen Crossmatch 01/29/17 11:46 WBC RBC Hgb Hct MCV MCH MCHC RDW Plt Count MPV Neut % (Auto) Lymph % (Auto) [place] % (Auto) Eos % (Auto) Baso % (Auto) Neut # (Auto) Lymph # (Auto) [place] # (Auto) Eos # (Auto) Baso # (Auto) Immature Gran % Nucleated RBC % Immature Gran # Nucleated RBCs # Sodium Potassium Chloride Carbon Dioxide Anion Gap BUN Creatinine GFR Calculation BUN/Creatinine Ratio Glucose POC Glucose 103 Calculated Osmolality Calcium Magnesium Blood Type Antibody Screen Crossmatch - EKG EKG results: interpreted by me, sinus rhythm Quality Measures - VTE Contraindication to Pharmacological VTE Prophylaxis: Active Bleeding - Stroke Presenting Symptoms: Decreased peripheral vision Specialty Discharge - Follow Up or Referrals <Luis Carpenter - Last Filed: 01/29/17 14:01> Cardiology - PN: Subj Interval history: Patient personally interviewed and examined. Chart reviewed. Discussed case with Yuly Woods MEDICAL LABORATORY SPECIALIST and agree with assessment. Patient doing well post cardiac bypass surgery. He is ambulating. He states has a good appetite. He has no shortness of breath and has no postoperative issues. Patient chemistries are stable. His rhythm remained stable. Rhythm is sinus normal heart rates. Has had no dysrhythmias. Family is present and feels he is doing well. His blood pressure being elevated some and his lisinopril is been increased to home dosing. If need be we can go up to a higher dosing. With his heart rates we have room to go up on his carvedilol as well. I would not add a new medication. Exam is unremarkable doing well post-CABG. Lungs a few crackles. Cardiac regular rate and rhythm without murmur. Surgical wounds are healing appropriately. Abdomen soft nontender. Extremities unremarkable slight edema of the ankles though. Neurologic intact. Exam (Progress Note) - Constitutional Vitals: Period Temp Pulse Resp BP Sys/Reed Pulse Ox Last 24 Hr 97.3 F-99.5 F 81-92 20-22 136-177/65-84 87-97 Result/EKG - Labs CBC & BMP: 01/29/17 03:38 01/29/17 03:38 Labs: Laboratory Results - last 24 hr 01/26/17 01/26/17 01/26/17 14:21 15:37 16:28 WBC RBC Hgb Hct MCV MCH MCHC RDW Plt Count MPV Neut % (Auto) Lymph % (Auto) [place] % (Auto) Eos % (Auto) Baso % (Auto) Neut # (Auto) Lymph # (Auto) [place] # (Auto) Eos # (Auto) Baso # (Auto) Immature Gran % Nucleated RBC % Immature Gran # Nucleated RBCs # Sodium Potassium Chloride Carbon Dioxide Anion Gap BUN Creatinine GFR Calculation BUN/Creatinine Ratio Glucose POC Glucose 171 H 178 H 171 H Calculated Osmolality Calcium Magnesium Blood Type Antibody Screen Crossmatch 01/26/17 01/26/17 01/26/17 17:30 18:28 20:13 WBC RBC Hgb Hct MCV MCH MCHC RDW Plt Count MPV Neut % (Auto) Lymph % (Auto) [place] % (Auto) Eos % (Auto) Baso % (Auto) Neut # (Auto) Lymph # (Auto) [place] # (Auto) Eos # (Auto) Baso # (Auto) Immature Gran % Nucleated RBC % Immature Gran # Nucleated RBCs # Sodium Potassium Chloride Carbon Dioxide Anion Gap BUN Creatinine GFR Calculation BUN/Creatinine Ratio Glucose POC Glucose 152 H 144 H 110 H Calculated Osmolality Calcium Magnesium Blood Type Antibody Screen Crossmatch 01/26/17 01/27/17 01/27/17 22:06 00:29 01:24 WBC RBC Hgb Hct MCV MCH MCHC RDW Plt Count MPV Neut % (Auto) Lymph % (Auto) [place] % (Auto) Eos % (Auto) Baso % (Auto) Neut # (Auto) Lymph # (Auto) [place] # (Auto) Eos # (Auto) Baso # (Auto) Immature Gran % Nucleated RBC % Immature Gran # Nucleated RBCs # Sodium Potassium Chloride Carbon Dioxide Anion Gap BUN Creatinine GFR Calculation BUN/Creatinine Ratio Glucose POC Glucose 100 97 120 H Calculated Osmolality Calcium Magnesium Blood Type Antibody Screen Crossmatch 01/27/17 01/27/17 01/27/17 02:20 04:14 07:13 WBC RBC Hgb Hct MCV MCH MCHC RDW Plt Count MPV Neut % (Auto) Lymph % (Auto) [place] % (Auto) Eos % (Auto) Baso % (Auto) Neut # (Auto) Lymph # (Auto) [place] # (Auto) Eos # (Auto) Baso # (Auto) Immature Gran % Nucleated RBC % Immature Gran # Nucleated RBCs # Sodium Potassium Chloride Carbon Dioxide Anion Gap BUN Creatinine GFR Calculation BUN/Creatinine Ratio Glucose POC Glucose 139 H 137 H 129 H Calculated Osmolality Calcium Magnesium Blood Type Antibody Screen Crossmatch 01/27/17 01/28/17 01/28/17 10:00 17:05 19:55 WBC RBC Hgb Hct MCV MCH MCHC RDW Plt Count MPV Neut % (Auto) Lymph % (Auto) [place] % (Auto) Eos % (Auto) Baso % (Auto) Neut # (Auto) Lymph # (Auto) [place] # (Auto) Eos # (Auto) Baso # (Auto) Immature Gran % Nucleated RBC % Immature Gran # Nucleated RBCs # Sodium Potassium Chloride Carbon Dioxide Anion Gap BUN Creatinine GFR Calculation BUN/Creatinine Ratio Glucose POC Glucose 125 H 149 H 185 H Calculated Osmolality Calcium Magnesium Blood Type Antibody Screen Crossmatch 01/28/17 01/29/17 01/29/17 23:43 03:37 03:38 WBC 9.6 RBC 2.65 L Hgb 8.2 L Hct 24.6 L MCV 92.8 MCH 31 MCHC 33.3 RDW 14.5 Plt Count 152 MPV 11.2 Neut % (Auto) 79.1 H Lymph % (Auto) 10.7 L [place] % (Auto) 8.9 Eos % (Auto) 0.1 Baso % (Auto) 0.1 Neut # (Auto) 7.6 H Lymph # (Auto) 1.0 L [place] # (Auto) 0.9 H Eos # (Auto) 0.0 Baso # (Auto) 0.0 Immature Gran % 1.1 Nucleated RBC % 0.0 Immature Gran # 0.11 Nucleated RBCs # 0.00 Sodium Potassium Chloride Carbon Dioxide Anion Gap BUN Creatinine GFR Calculation BUN/Creatinine Ratio Glucose POC Glucose 154 H Calculated Osmolality Calcium Magnesium Blood Type A POSITIVE Antibody Screen Negative Crossmatch See Detail 01/29/17 01/29/17 01/29/17 03:38 04:16 07:20 WBC RBC Hgb Hct MCV MCH MCHC RDW Plt Count MPV Neut % (Auto) Lymph % (Auto) [place] % (Auto) Eos % (Auto) Baso % (Auto) Neut # (Auto) Lymph # (Auto) [place] # (Auto) Eos # (Auto) Baso # (Auto) Immature Gran % Nucleated RBC % Immature Gran # Nucleated RBCs # Sodium 144 Potassium 4.1 Chloride 109 H Carbon Dioxide 28 Anion Gap 11.1 BUN 33 H Creatinine 1.00 GFR Calculation 80 BUN/Creatinine Ratio 33.00 H Glucose 112 H POC Glucose 129 H 109 H Calculated Osmolality 293.8 Calcium 7.9 L Magnesium 2.4 Blood Type Antibody Screen Crossmatch 01/29/17 11:46 WBC RBC Hgb Hct MCV MCH MCHC RDW Plt Count MPV Neut % (Auto) Lymph % (Auto) [place] % (Auto) Eos % (Auto) Baso % (Auto) Neut # (Auto) Lymph # (Auto) [place] # (Auto) Eos # (Auto) Baso # (Auto) Immature Gran % Nucleated RBC % Immature Gran # Nucleated RBCs # Sodium Potassium Chloride Carbon Dioxide Anion Gap BUN Creatinine GFR Calculation BUN/Creatinine Ratio Glucose POC Glucose 103 Calculated Osmolality Calcium Magnesium Blood Type Antibody Screen Crossmatch
[2017-01-29] MEDS: ACETAMINOPHEN 325 MG TABLET PO PRN (21:12)
[2017-01-29] MEDS: ATORVASTATIN 40 MG TABLET PO SCH (21:13)
[2017-01-29] MEDS: diphenhydrAMINE CAP 50 MG CAPSULE PO PRN (21:13)
[2017-01-30 06:21] LABS: Calcium 7.7 MG/DL (8.5-10.1); Magnesium 2.2 MG/DL (1.8-2.4); Osmolality,Calculated 292.8 MOS/KG (273-304); Potassium 3.5 MMOL/L (3.5-5.1)
[2017-01-30 07:35] LABS: Eosinophils # 0.3 10*3/uL (0.0-0.87); Hemoglobin 9.6 GM/DL (14.0-18.0); Immature Granulocytes % 0.8 %; Immature Granulocytes Absolute 0.07 #; Lymphocytes % 12.3 % (21.2-54.2); Mean Corpuscular HGB Conc 33.1 GM/DL (32-36); Mean Corpuscular Hemoglobin 31 PG (27-34); Mean Corpuscular Volume 92.7 FL (87-102); Mean Platelet Volume 10.7 FL (9.6-12.0); Monocytes # 0.9 10*3/uL (0.11-0.8); Monocytes % 10.2 % (1.7-12.7); Neutrophils # 6.3 10*3/uL (1.4-7.4); Neutrophils % 73.7 % (38.7-73.9); Platelet Count 165 T/CUMM (130-400); Red Blood Count 3.13 MC/CUMM (3.8-5.5); Red Cell Distribution Width 14.8 % (9.3-17.3); White Blood Count 8.5 T/CUMM (4-12)
--- NOTE | 2017-01-30 09:05 | Cardiothoracic Progress Note ---
Assessment and Plan (1) CAD (coronary artery disease) Status: Chronic Assessment and plan: Postoperative day 4 status post CABG 2. The patient has been doing very well. Continue PT and OT. Plan to discharge to swing bed within 24-48 hours. Current Visit: Yes Cardiothoracic Subjective Interval history: Patient has been progressing very well. I removed the left pleural chest tube as well as the pacing wires yesterday and he has been doing well since then. He is ambulating well. He is working with physical therapy and occupational therapy. Exam (Progress Note) - Constitutional Vitals: Period Temp Pulse Resp BP Sys/Reed Pulse Ox Last 24 Hr 98.4 F-101.2 F 75-90 16-22 129-184/61-81 91-96 Result/EKG - Labs CBC & BMP: 01/30/17 07:17 01/30/17 04:09 Labs: Laboratory Results - last 24 hr 01/29/17 01/29/17 01/29/17 03:37 11:46 15:20 WBC RBC Hgb Hct MCV MCH MCHC RDW Plt Count MPV Neut % (Auto) Lymph % (Auto) [place] % (Auto) Eos % (Auto) Baso % (Auto) Neut # (Auto) Lymph # (Auto) [place] # (Auto) Eos # (Auto) Baso # (Auto) Immature Gran % Nucleated RBC % Immature Gran # Nucleated RBCs # Sodium Potassium Chloride Carbon Dioxide Anion Gap BUN Creatinine GFR Calculation BUN/Creatinine Ratio Glucose POC Glucose 103 158 H Calculated Osmolality Calcium Magnesium Blood Type A POSITIVE Antibody Screen Negative Crossmatch See Detail 01/30/17 01/30/17 04:09 07:17 WBC 8.5 RBC 3.13 L Hgb 9.6 L Hct 29.0 L MCV 92.7 MCH 31 MCHC 33.1 RDW 14.8 Plt Count 165 MPV 10.7 Neut % (Auto) 73.7 Lymph % (Auto) 12.3 L [place] % (Auto) 10.2 Eos % (Auto) 3.0 Baso % (Auto) 0.0 Neut # (Auto) 6.3 Lymph # (Auto) 1.0 L [place] # (Auto) 0.9 H Eos # (Auto) 0.3 Baso # (Auto) 0.0 Immature Gran % 0.8 Nucleated RBC % 0.0 Immature Gran # 0.07 Nucleated RBCs # 0.00 Sodium 144 Potassium 3.5 Chloride 108 H Carbon Dioxide 28 Anion Gap 11.5 BUN 33 H Creatinine 0.90 GFR Calculation 91 BUN/Creatinine Ratio 36.00 H Glucose 96 POC Glucose Calculated Osmolality 292.8 Calcium 7.7 L Magnesium 2.2 Blood Type Antibody Screen Crossmatch Quality Measures - VTE Contraindication to Pharmacological VTE Prophylaxis: Active Bleeding - Stroke Presenting Symptoms: Decreased peripheral vision Specialty Discharge - Follow Up or Referrals
[2017-01-30] MEDS: FUROSEMIDE 40 MG TABLET PO SCH (09:52)
[2017-01-30] MEDS: CARVEDILOL 3.125 MG TABLET PO SCH ×2 (09:53→21:42)
[2017-01-30] MEDS: ASPIRIN EC 325 MG TABLET PO SCH (09:53)
[2017-01-30] MEDS: CHLORHEXIDINE 0.12% ORAL RINSE 60 ML BOTTLE SWISH/SPIT SCH ×2 (09:54→21:42)
--- NOTE | 2017-01-30 12:49 | Cardiology Progress Note ---
<Kiley Woods E - Last Filed: 01/30/17 12:54> Assessment and Plan (1) Status post coronary artery bypass graft Status: Acute Assessment and plan: POD #3 CABG 2 with SAMUEL to diagonal and vein graft to second OM.. Patient is doing well. Increased lisinopril to 10 mg p.o. daily yesterday. BP remains elevated today. Will increase to 20mg po daily. Will continue to monitor and adjust as needed. Patient spiked fever of 101.2 during blood transfusion yesterday evening. Temperature improved with tylenol. Will check blood cultures, urinalysis, and chest x-ray to rule out infection. No obvious signs of sepsis. WBC normal. Surgical wounds have no signs of infection. Current Visit: Yes (2) CAD (coronary artery disease) Status: Chronic Assessment and plan: LHC on 01/24/17 revealed LAD calcification all the way to the apex, first diagonal branch with 50-60%, 80% in posterior descending artery, OM1 stent site occluded with retrograde filling. On 01/26/17, patient underwent CABG x2 with SAMUEL to diagonal and VG to 2nd OM with Dr. Flanagan. Current Visit: Yes (3) Diabetes Status: Chronic Assessment and plan: Continue sliding scale. Current Visit: Yes (4) Hypercholesterolemia Status: Chronic Assessment and plan: Continue Atorvastatin. Current Visit: Yes (5) Hypertension Status: Chronic Assessment and plan: Lisinopril increased to 10mg po daily yesterday. BP remains suboptimally controlled. Will increase to 20mg PO daily today. Will continue to monitor and make further adjustments as needed. Current Visit: Yes Cardiology - PN: Subj Interval history: VEHICLE MONITOR TECHNICIAN: DR. FUCHS PCP: DR. TOLBERT Mr. Lazo is an 81-year-old male, postop day #4 SAMUEL graft to diagonal and vein graft to OM. Preop ejection fraction is 55%. His LAD was diffusely diseased and unsuitable for bypass. Today upon exam, he is lying in the bed in no acute distress. He tells me he is tired and has not been able to rest very much. He did require blood transfusion last night and spiked a temperature of 101.2. He was given tylenol and this came back down. He has maintained a temperature of 99-99.2. His WBC is normal, and he has no obvious signs of infection, but we will check blood cultures, urinalysis, and chest x- ray to rule out infection. He denies any other complaints currently. Exam (Progress Note) - Constitutional Vitals: Period Temp Pulse Resp BP Sys/Reed Pulse Ox Last 24 Hr 98.4 F-101.2 F 75-90 16-22 129-184/61-81 91-96 Exam: General: Present: Appears Well, No Apparent Distress. Pleasant and cooperative. Appears comfortable. HEENT: Present: PERRL, Normocephaly, atraumatic. Mucus Membranes Moist. No jaundice noted. Conjunctiva moist and clear, sclerae anicteric Neck: Present: Supple Neck, Midline Trachea, No Masses, No Bruit, No tenderness Cardiac: Present: Regular Rate and Rhythm, No Murmur Lungs: Present: Decreased breath sounds to bilateral bases, otherwise clear to auscultation. Neuro: Present: Awake, alert, and oriented x3. Moves all extremities well without hemiparesis or paralysis. Grossly Intact. Absent: Resting Tremor, Essential Tremor Abdomen: Present: Soft, Active Bowel Sounds, No Masses, Non-Tender, nondistended. No abdominal bruit or thrill noted. Skin: Present: Midline sternal incision well approximated, no redness or edema. Right lower extremity incision well approximated, no redness or edema; dressing to lower portion of wound with small amount of sanguineous drainage noted. Absent: Rash, No skin breakdown. Musculoskeletal: Present: No Fluid Collection, No Pain, Normal Range of Motion Extremities: Present: Normal Gait, No Clubbing, No Cyanosis, Upper Extr. Pulses 2+, Lower Extr. Pulses 2+, No edema. Capillary refill less than 3 seconds. Result/EKG - Labs CBC & BMP: 01/30/17 07:17 01/30/17 04:09 Lab Results: I have reviewed the past 24 hour labs Labs: Laboratory Results - last 24 hr 01/29/17 01/29/17 01/30/17 03:37 15:20 04:09 WBC RBC Hgb Hct MCV MCH MCHC RDW Plt Count MPV Neut % (Auto) Lymph % (Auto) [place] % (Auto) Eos % (Auto) Baso % (Auto) Neut # (Auto) Lymph # (Auto) [place] # (Auto) Eos # (Auto) Baso # (Auto) Immature Gran % Nucleated RBC % Immature Gran # Nucleated RBCs # Sodium 144 Potassium 3.5 Chloride 108 H Carbon Dioxide 28 Anion Gap 11.5 BUN 33 H Creatinine 0.90 GFR Calculation 91 BUN/Creatinine Ratio 36.00 H Glucose 96 POC Glucose 158 H Calculated Osmolality 292.8 Calcium 7.7 L Magnesium 2.2 Blood Type A POSITIVE Antibody Screen Negative Crossmatch See Detail 01/30/17 07:17 WBC 8.5 RBC 3.13 L Hgb 9.6 L Hct 29.0 L MCV 92.7 MCH 31 MCHC 33.1 RDW 14.8 Plt Count 165 MPV 10.7 Neut % (Auto) 73.7 Lymph % (Auto) 12.3 L [place] % (Auto) 10.2 Eos % (Auto) 3.0 Baso % (Auto) 0.0 Neut # (Auto) 6.3 Lymph # (Auto) 1.0 L [place] # (Auto) 0.9 H Eos # (Auto) 0.3 Baso # (Auto) 0.0 Immature Gran % 0.8 Nucleated RBC % 0.0 Immature Gran # 0.07 Nucleated RBCs # 0.00 Sodium Potassium Chloride Carbon Dioxide Anion Gap BUN Creatinine GFR Calculation BUN/Creatinine Ratio Glucose POC Glucose Calculated Osmolality Calcium Magnesium Blood Type Antibody Screen Crossmatch - EKG EKG results: interpreted by me, sinus rhythm Quality Measures - VTE Contraindication to Pharmacological VTE Prophylaxis: Active Bleeding - Stroke Presenting Symptoms: Decreased peripheral vision Specialty Discharge - Follow Up or Referrals <Luis Carpenter Kory - Last Filed: 01/30/17 15:44> Cardiology - PN: Subj Interval history: Impression personally interviewed and examined by me and chart reviewed. I discussed the case with Kiley Woods ASSEMBLY LINE ROBOT OPERATOR. I agree with the assessment. Patient did have a low-grade fever of 1.2 last night continues to have low grade elevation of his temperature. His CBC is unremarkable. Chest x-ray indicates possible some mild cardiac decompensation but no acute changes apparently. The patient continue with his rehabilitation post procedure and increasing his activity. He generally is a little weak. He states appetite is good. He's had no rhythm disturbance. Continue his present therapy and progression. Apparently is planning to go to a swing bed post discharge. Exam (Progress Note) - Constitutional Vitals: Period Temp Pulse Resp BP Sys/Reed Pulse Ox Last 24 Hr 98.4 F-101.2 F 78-92 16-22 148-184/68-86 91-96 Result/EKG - Labs CBC & BMP: 01/30/17 07:17 01/30/17 04:09 Labs: Laboratory Results - last 24 hr 01/29/17 01/29/17 01/30/17 03:37 15:20 04:09 WBC RBC Hgb Hct MCV MCH MCHC RDW Plt Count MPV Neut % (Auto) Lymph % (Auto) [place] % (Auto) Eos % (Auto) Baso % (Auto) Neut # (Auto) Lymph # (Auto) [place] # (Auto) Eos # (Auto) Baso # (Auto) Immature Gran % Nucleated RBC % Immature Gran # Nucleated RBCs # Sodium 144 Potassium 3.5 Chloride 108 H Carbon Dioxide 28 Anion Gap 11.5 BUN 33 H Creatinine 0.90 GFR Calculation 91 BUN/Creatinine Ratio 36.00 H Glucose 96 POC Glucose 158 H Calculated Osmolality 292.8 Calcium 7.7 L Magnesium 2.2 Blood Type A POSITIVE Antibody Screen Negative Crossmatch See Detail 01/30/17 07:17 WBC 8.5 RBC 3.13 L Hgb 9.6 L Hct 29.0 L MCV 92.7 MCH 31 MCHC 33.1 RDW 14.8 Plt Count 165 MPV 10.7 Neut % (Auto) 73.7 Lymph % (Auto) 12.3 L [place] % (Auto) 10.2 Eos % (Auto) 3.0 Baso % (Auto) 0.0 Neut # (Auto) 6.3 Lymph # (Auto) 1.0 L [place] # (Auto) 0.9 H Eos # (Auto) 0.3 Baso # (Auto) 0.0 Immature Gran % 0.8 Nucleated RBC % 0.0 Immature Gran # 0.07 Nucleated RBCs # 0.00 Sodium Potassium Chloride Carbon Dioxide Anion Gap BUN Creatinine GFR Calculation BUN/Creatinine Ratio Glucose POC Glucose Calculated Osmolality Calcium Magnesium Blood Type Antibody Screen Crossmatch
--- NOTE | 2017-01-30 13:24 | XRay Report ---
XR chest 2V Indication: Fever Comparison: 29 January 2017 Findings: The heart and mediastinum are stable in size and configuration. Right internal jugular catheter is unchanged in position. The pulmonary vascularity is improved with decreased interstitial lung density. No other lung infiltrates, effusions, pneumothorax or other abnormality is demonstrated. Impression: Findings suggest improving cardiac decompensation. PROCEDURE INTERPRETED AT [facility] DEPARTMENT OF RADIOLOGY Final Report Signed by: Dr. Cale Molina
[2017-01-30] MEDS: LISINOPRIL 20 MG TABLET PO SCH (14:28)
[2017-01-30] MEDS: diphenhydrAMINE CAP 50 MG CAPSULE PO PRN ×2 (14:45→21:42)
[2017-01-30] MEDS: ACETAMINOPHEN 325 MG TABLET PO PRN (21:42)
[2017-01-30] MEDS: ATORVASTATIN 40 MG TABLET PO SCH (21:42)
[2017-01-31 05:22] LABS: Calcium 8.1 MG/DL (8.5-10.1); Magnesium 2.2 MG/DL (1.8-2.4); Potassium 3.5 MMOL/L (3.5-5.1)
[2017-01-31] MEDS: CARVEDILOL 3.125 MG TABLET PO SCH ×2 (09:47→21:25)
[2017-01-31] MEDS: FUROSEMIDE 40 MG TABLET PO SCH (09:47)
[2017-01-31] MEDS: ASPIRIN EC 325 MG TABLET PO SCH (09:48)
[2017-01-31] MEDS: LISINOPRIL 20 MG TABLET PO SCH (09:48)
[2017-01-31] MEDS: CHLORHEXIDINE 0.12% ORAL RINSE 60 ML BOTTLE SWISH/SPIT SCH ×2 (12:13→21:26)
--- NOTE | 2017-01-31 13:07 | Cardiology Progress Note ---
<Kiley Woods E - Last Filed: 01/31/17 13:04> Assessment and Plan - Time spent with patient Time spent with patient: Less than 30 minutes (1) Status post coronary artery bypass graft Status: Acute Assessment and plan: POD #5 CABG 2 with SAMUEL to diagonal and vein graft to second OM. Patient is doing well. He is ambulating around the telemetry unit without difficulty. Patient's blood pressure is better controlled after increasing lisinopril to 20 mg p.o. daily. Will continue to monitor and adjust as needed. Patient spiked fever of 101.2 during blood transfusion for 1716. Temperature improved with tylenol. No obvious signs of sepsis. WBC normal. Surgical wounds have no signs of infection. Awaiting results of blood cultures. Chest x-ray was unremarkable. He plans to go to swing bed following discharge when he meets criteria. Current Visit: Yes (2) CAD (coronary artery disease) Status: Chronic Assessment and plan: LHC on 01/24/17 revealed LAD calcification all the way to the apex, first diagonal branch with 50-60%, 80% in posterior descending artery, OM1 stent site occluded with retrograde filling. On 01/26/17, patient underwent CABG x2 with SAMUEL to diagonal and VG to 2nd OM with Dr. Flanagan. Current Visit: Yes (3) Diabetes Status: Chronic Assessment and plan: Continue sliding scale. Current Visit: Yes (4) Hypercholesterolemia Status: Chronic Assessment and plan: Continue Atorvastatin. Current Visit: Yes (5) Hypertension Status: Chronic Assessment and plan: Better controlled after increasing lisinopril yesterday. Will continue to monitor and make further adjustments as needed. Current Visit: Yes Cardiology - PN: Subj Interval history: LAND USE PLANNER: DR. FUCHS PCP: DR. TOLBERT Mr. Lazo is an 81-year-old male, postop day #5 SAMUEL graft to diagonal and vein graft to OM. Preop ejection fraction is 55%. His LAD was diffusely diseased and unsuitable for bypass. Today upon exam, Mr. Lazo is sitting up in the chair. He has just finished taking a shower and tells me this morning he has already ambulated around the unit. His right lower extremity incision does have some mild bloody drainage. He has no complaints at this time. His temperature continues to remain low-grade at 99-100. Thus far, we have no results from his blood cultures. Chest x-ray was unremarkable yesterday. He continues to show no obvious signs of infection. Exam (Progress Note) - Constitutional Vitals: Period Temp Pulse Resp BP Sys/Reed Pulse Ox Last 24 Hr 98.2 F-101.0 F 72-93 18-20 117-156/59-80 90-94 Exam: General: Present: Appears Well, No Apparent Distress. Pleasant and cooperative. Appears comfortable. HEENT: Present: PERRL, Normocephaly, atraumatic. Mucus Membranes Moist. No jaundice noted. Conjunctiva moist and clear, sclerae anicteric Neck: Present: Supple Neck, Midline Trachea, No Masses, No Bruit, No tenderness Cardiac: Present: Regular Rate and Rhythm, No Murmur Lungs: Present: Decreased breath sounds to bilateral bases, otherwise clear to auscultation. Neuro: Present: Awake, alert, and oriented x3. Moves all extremities well without hemiparesis or paralysis. Grossly Intact. Absent: Resting Tremor, Essential Tremor Abdomen: Present: Soft, Active Bowel Sounds, No Masses, Non-Tender, nondistended. No abdominal bruit or thrill noted. Skin: Present: Midline sternal incision well approximated, no redness or edema. Right lower extremity incision well approximated, no redness or edema; dressing to lower portion of wound with small amount of sanguineous drainage noted. Absent: Rash, No skin breakdown. Musculoskeletal: Present: No Fluid Collection, No Pain, Normal Range of Motion Extremities: Present: Normal Gait, No Clubbing, No Cyanosis, Upper Extr. Pulses 2+, Lower Extr. Pulses 2+, No edema. Capillary refill less than 3 seconds. Result/EKG - Labs CBC & BMP: 01/30/17 07:17 01/31/17 04:03 Lab Results: I have reviewed the past 24 hour labs Labs: Laboratory Results - last 24 hr 01/31/17 04:03 Sodium 143 Potassium 3.5 Chloride 106 Carbon Dioxide 25 Anion Gap 15.5 H BUN 24 H Creatinine 0.80 GFR Calculation 95 BUN/Creatinine Ratio 30.00 H Glucose 103 Calculated Osmolality 288.0 Calcium 8.1 L Magnesium 2.2 - EKG EKG results: interpreted by me, sinus rhythm Quality Measures - VTE Contraindication to Pharmacological VTE Prophylaxis: Active Bleeding - Stroke Presenting Symptoms: Decreased peripheral vision Specialty Discharge - Follow Up or Referrals <Luis Carpenter - Last Filed: 01/31/17 13:16> Cardiology - PN: Subj Interval history: Patient personally interviewed and examined today and chart reviewed. Discussed the case with Kiley Woods DOPING SUPERVISOR. Agree with the history, exam and assessment. In addition in summation the patient is doing well post surgery. He still has his low-grade temperature about 99.2 but there is no gross evidence for infection. He is been up ambulating without difficulty. He's had no dysrhythmias and is remained sinus rhythm. Other than his Up to 99.2 his all signs of been stable. Blood pressures are stable. Patient generally is progressing well and apparently is going to rehabilitation at discharge. Exam (Progress Note) - Constitutional Vitals: Period Temp Pulse Resp BP Sys/Reed Pulse Ox Last 24 Hr 98.2 F-101.0 F 72-93 18-20 117-156/59-80 90-94 Result/EKG - Labs CBC & BMP: 01/30/17 07:17 01/31/17 04:03 Labs: Laboratory Results - last 24 hr 01/31/17 04:03 Sodium 143 Potassium 3.5 Chloride 106 Carbon Dioxide 25 Anion Gap 15.5 H BUN 24 H Creatinine 0.80 GFR Calculation 95 BUN/Creatinine Ratio 30.00 H Glucose 103 Calculated Osmolality 288.0 Calcium 8.1 L Magnesium 2.2
[2017-01-31] MEDS: ALBUTEROL/IPRATROPIUM 3 ML NEB RESP TX SCH (13:30)
[2017-01-31] MEDS: ATORVASTATIN 40 MG TABLET PO SCH (21:25)
[2017-02-01] MEDS: diphenhydrAMINE CAP 50 MG CAPSULE PO PRN (00:22)
[2017-02-01] MEDS: ALBUTEROL/IPRATROPIUM 3 ML NEB RESP TX SCH ×2 (00:29→06:53)
--- NOTE | 2017-02-01 07:30 | Discharge Summary ---
Hospital Course - Hospital Course Hospital Course: The patient had a cath showing multivessel coronary artery disease with the LAD calcified along its entire course. He was deemed a good candidate for two- vessel bypass. He was taken to the OR and a CABG was performed without any problems. He spent postoperative day 1 in the ICU for observation however he was doing very well. Postoperative day 2 his transfer to telemetry his mediastinal chest tubes were removed without any problems. Postoperative day 3 his mid pleural chest tube was removed without any issues he was ambulating and tolerating his diet. He was working with physical therapy and was making good progress. He had no complaints during his stay. Postoperative day 6 he was ready for discharge for swing bed. - Time spent with patient Time with patient DS: Greater than 30 minutes Diagnosis - Discharge Diagnosis (1) CAD (coronary artery disease) Status: Chronic Specialty Discharge - Follow Up or Referrals Follow up with: Bk Torres MD [Physician] - Jossie Flanagan [Physician] - Discharge Plan - Discharge Data Disposition: Disch/Xfer to Snf Condition at Discharge: Stable Discharge Diet: advance to your usual diet Activity: resume usual activities as tolerated Hygiene: no restrictions Weight Bearing at Discharge: full weight bearing Contact your physician if you experience:: fever over 101, Difficulty voiding, Redness or swelling, Nausea/Vomiting, Shortness of breath, Bleeding - Discharge Medications New diphenhydrAMINE CAP [Benadryl Cap] 50 mg PO BEDTIME PRN #0 capsule PRN Reason: sleep Acetaminophen Tab [Tylenol Tab] 650 mg PO Q4H PRN #0 tablet PRN Reason: Fever, Headache, Mild Pain Aspirin EC Tab 325 mg PO DAILY tablet Atorvastatin [Lipitor] 40 mg PO BEDTIME tablet Carvedilol [Coreg] 3.125 mg PO BID tablet Furosemide Tab [Lasix Tab] 40 mg PO DAILY tablet Lisinopril [Prinivil] 20 mg PO DAILY tablet Continue Ezetimibe [Zetia] 10 mg PO DAILY amLODIPine [Norvasc] 2.5 mg PO DAILY Citalopram [CeleXA] 20 mg PO DAILY Carvedilol 3.125 mg PO BID Pantoprazole Tab [Protonix Tab] 40 mg PO BID Cilostazol 50 mg PO BID Discontinued Pravastatin [Pravachol] 40 mg PO DAILY Lisinopril 10 mg PO DAILY Aspirin [Ecotrin] 81 mg PO DAILY - Follow Up or Referral - Forms/Instructions Instructions: Heart Healthy Diet (GEN), Coronary Artery Bypass Graft, Metal Loader (GEN), Sternal Precautions, Metal Loader (GEN) Exam - Constitutional Vitals: Period Temp Pulse Resp BP Sys/Reed Pulse Ox Last 24 Hr 98.2 F-100.1 F 76-94 16-20 136-161/65-76 90-99 Discharge Results Procedures and tests throughout hospitalization: Pending Orders 01/25/17 10:13 Fresh Frozen Plasma Routine Red Blood Cells Leuko Red Routine Single Donor Platelets Routine Type and Screen Routine 01/30/17 12:45 Blood Culture Routine Labs on day of discharge: Preliminary micro results at discharge 01/30/17 12:45 Blood Culture - Preliminary Blood No growth at 1 day 01/30/17 12:52 Blood Culture - Preliminary Blood No growth at 1 day DS: Provider Date of admission: 01/26/17 11:01 Primary care physician: . No PCP Attending physician on admission: Bk Torres MD Consults: 01/24/17 10:39 Consult to Dietitian [CONS] Routine Reason for Dietitian: Other Consult Comment: low salt, low cholesterol, diet 01/26/17 11:01 Consult to Occupational Therapy [CONS] Routine Reason for Occupational Therapy: Evaluate and Treat Start Therapy: Tomorrow Consult to Physical Therapy [CONS] Routine Reason for Physical Therapy: Evaluate and Treat Start Therapy: Tomorrow 01/26/17 12:17 Consult to Physician [CONS] Routine Comment: Consulting Provider: Jossie Flanagan 01/29/17 09:55 Consult to Case Mgmt/Social Srvs [CONS] Routine Reason for Case Mgmt/Social Srvs: Swingbed/SNF/Intermediate Discharging clinician: Jossie Flanagan Expected date of discharge: 02/01/17
[2017-02-01 08:27] VITALS: BP 160/75
[2017-02-01] MEDS: LISINOPRIL 20 MG TABLET PO SCH (08:49)
[2017-02-01] MEDS: FUROSEMIDE 40 MG TABLET PO SCH (08:49)
[2017-02-01] MEDS: CARVEDILOL 3.125 MG TABLET PO SCH (08:49)
[2017-02-01] MEDS: ASPIRIN EC 325 MG TABLET PO SCH (08:49)
[2017-02-01] MEDS: CHLORHEXIDINE 0.12% ORAL RINSE 60 ML BOTTLE SWISH/SPIT SCH (08:50)
== END 2017-02-01 11:50 | disposition swing bed (61) | DRG 234 ==
LOC: N.CL 06:43 → N.TELES 06:43 → N.CL 06:59 → N.TELES 15:18 → N.CVR 01-26 07:35 → N.ICU 01-27 13:52 → N.TELES 01-28 14:05
PROVIDERS: ADMIT Internal Medicine Cardiovascular Disease; ATTEND Internal Medicine Cardiovascular Disease

== ENCOUNTER 2017-04-12 11:41 | Inpatient (IN) ==
[2017-04-12] MEDS ORDERED: MECLIZINE 25 MG TABLET PO STA (12:18)
[2017-04-12] MEDS ORDERED: SODIUM CHLORIDE 0.9% 500 ML IV STA (12:18)
[2017-04-12] MEDS ORDERED: ONDANSETRON 4 MG/2 ML VIAL IV STA (12:18)
--- NOTE | 2017-04-12 12:23 | EKG Report ---
Stationary ECG Study [facility] ER Test Date: 04/12/2017 11:51:53 AM Pat Name: SATNAM FISHER Department: Room: Gender: M Material Movers: Nancy Resendez : 1935 Requested by: Satnam Silvestre Order Number: [id number] Reading MD: MIMI ZARAGOZA Intervals [place] Rate: 93 P: 77 MI: 145 QRS: 68 QRSD: 146 T: 199 QT: 393 QTc: 444 Interpretive Statements SINUS RHYTHM LEFT BUNDLE BRANCH BLOCK Electronically Signed On 04-12-17 15:46:28 CDT by MIMI ZARAGOZA [email or web address]
--- NOTE | 2017-04-12 12:30 | Emergency Department Note ---
Samson Moreno Rolonda, am scribing for, and in the presence of, Albert Lee MD 12:27. Rosa Moreno Charles R, MD, personally performed the services described in this documentation, ascribed by Ana M Davies in my presence, and it is both accurate and complete 230 . Arrival - Arrival Chief Complaint: Non-Specific Stated Complaint: Dizziness,coughing, weakness ED Nursing Triage Note: C/o intermittent episodes of dizziness and weakness- onst "a couple months ago". Also reports non-productive cough and runny nose since January. Mode of Arrival: Ambulatory Limitations: No Limitations Source: Patient, Old Records Reviewed, RN Notes Reviewed Time Seen by Provider: 04/12/17 12:08 - History of Present Illness HPI Narrative: Pt is an 82 y/o male who ambulated to the ED with complaint of weakness with an onset of months ago. Pt states that he fell x3 days ago and has vertigo mostly when he's attempting to stand up. He confirms associated sxs of cough, loss of balance, double vision, staggery gait but denies chest pain and slur in speech. No other complaint/pain in ED. Onset (ago): month(s) Consistency: constant Severity: moderate Severity scale (1-10): 4 Allergies/Adverse Reactions: Allergies Allergy/AdvReac Type Severity Reaction Status Date / Time No Known Allergies Allergy Verified 01/24/17 07:03 Home Medications: Home Medications Medication Instructions Recorded Confirmed Type Cilostazol 50 mg PO BID 01/23/17 04/12/17 History Citalopram [CeleXA] 20 mg PO DAILY 01/23/17 04/12/17 History Ezetimibe [Zetia] 10 mg PO DAILY 01/23/17 04/12/17 History Pantoprazole Tab [Protonix Tab] 40 mg PO BID 01/23/17 04/12/17 History Atorvastatin [Lipitor] 40 mg PO BEDTIME tablet 02/01/17 04/12/17 Rx Carvedilol [Coreg] 3.125 mg PO BID tablet 02/01/17 04/12/17 Rx Aspirin EC Tab 81 mg PO DAILY 04/12/17 04/12/17 History Phenylephrine/Guaifenesin [Deconex 1 tablet PO QID PRN 04/12/17 04/12/17 History IR] Review of System - Review of System 12 point system: reviewed and no additional remarkable complaints except as stated - Review of System Constitutional: Absent: chills, fever Eyes: Present: vision change (double vision) Respiratory: Present: cough Cardiovascular: Absent: chest pain Gastrointestinal: Absent: abdominal pain, nausea, vomiting, diarrhea Genitourinary male: Absent: dysuria Musculoskeletal: Absent: arm pain, back pain Neurological: Present: vertigo (staggery, no balance) Medical,Surgical,& Family Hx - Medical History Cardio: History of: Cardiac Dysrhythmia (L BBB, Coronary Stents), CAD, Hypertension Psychological: History of: Depression Neurology: No history of: Seizures Endocrine: History of: Dyslipidemia Gastrointestinal: History of: GERD Musculoskeletal: History of: Back/Neck Problems (Arthritis) No history of: Amputation - Surgical History Cardiac Surgeries: Sugical HX of: Cardiac Catheterization (stents), Cardiac Surgery (Two-vessel CABG) Thoracic Surgeries: Patient denies;: Organ Transplant, Lobectomy Neurologic Surgeries: Patient denies: Neurologic Surgery Abdominal Surgeries: Surgical HX of: Abdominal Surgery, Appendectomy Reproductive Surgeries: Patient denies;: Genitourinary Surgery - Family History Family History: Reports;: Family Heart Disease, Family Hypertension - Social History Smoking Status: Former smoker Frequency of Alcohol Use: None Type of Drug Use: None Exam Vital Signs: Vital Signs Temperature 98.5 F 04/12/17 11:44 Pulse Rate 97 H 04/12/17 11:44 Respiratory Rate 18 04/12/17 11:44 Blood Pressure 118/85 04/12/17 11:44 O2 Sat by Pulse Oximetry 96 04/12/17 11:44 - General General appearance: alert, in no apparent distress, lethargic (weak appearing) - Head Head exam: Present: atraumatic, normocephalic - Eye Eye exam: Present: PERRL, EOMI, nystagmus - ENT ENT exam: Present: mucous membranes moist. Absent: mucous membranes dry - Neck Neck exam: Present: full ROM. Absent: tenderness - Chest Chest inspection: Present: symmetric chest wall rise. Absent: tenderness - Respiratory Respiratory exam: Present: normal lung sounds bilaterally. Absent: wheezes - Cardiovascular Cardiovascular exam: Present: regular rate, normal rhythm, normal heart sounds. Absent: bradycardia - Abdominal Exam Abdominal exam: Present: soft, normal bowel sounds. Absent: tenderness - Extremities Exam Extremities exam: Present: full ROM. Absent: tenderness - Back Exam Back exam: Present: full ROM. Absent: tenderness - Neurological Exam Neurological exam: Present: alert, oriented X3, CN II-XII intact, other ( orthostatic dizziness) - Psychiatric Psychiatric exam: Present: normal affect, normal mood - Skin Skin exam: Present: warm, dry, intact, normal color. Absent: rash Course - Consultations Consultation #1: Dr. Jean will admit patient Time: 14:52 Results - Labs CBC & BMP: 04/12/17 12:55 04/12/17 12:55 Lab Results: I have reviewed the patients labs Labs: Laboratory Tests 04/12/17 04/12/17 12:55 12:55 WBC 8.0 RBC 3.77 L Hgb 10.4 L Hct 31.8 L MCV 84.4 L Plt Count 328 MPV 9.4 L Lymph % (Auto) 17.2 L INR 1.1 PT Patient/Control Mix 12.2 Laboratory Tests 04/12/17 04/12/17 12:55 12:55 Sodium 139 Potassium 3.7 Chloride 103 Carbon Dioxide 28 BUN 16 GFR Calculation 86 Glucose 122 H AST 54 H ALT 75 H B-Natriuretic Peptide 111 H Albumin 2.3 L Globulin 4.2 H Albumin/Globulin Ratio 0.5 L - Diagnostic Findings Procedure: Chest x-ray: report reviewed by me (Mild acute right lower lobe atelectasis/infiltrate is superimposed upon chronic lung disease. Mild pneumonia cannot be excluded. Otherwise unchanged. ), CT: report reviewed by me (Head/Brain: No acute intracranial process compared to the previous study. Chronic ischemic changes.) Disposition Clinical Impression: CAD (coronary artery disease), Status post coronary artery bypass graft, Right lower lobe pneumonia, Dizziness, Generalized weakness, Elevated LFTs, Vertigo Case discussed with: patient, patient's family Disposition: Still a Patient Condition: Stable Time of Disposition: 14:53
--- NOTE | 2017-04-12 13:08 | CT Report ---
History: Dizziness Date: 04/12/2017 Study: CT head without contrast Comparison exam: No previous Transaxial CT sections were obtained through the head without IV contrast. This CT exam was performed using one or more the following dose reduction techniques: Automated exposure control, adjustment of the MA and/or KV according to patient size, or use of iterative reconstruction technique. The ventricles are midline in position without evidence of hydrocephalus. There is no mass or parenchymal hemorrhage. There is no gross CT evidence of acute cortical stroke. There is a small area of chronic ischemia in the left temporal lobe, unchanged from the comparison study. There is no extra-axial hematoma. There is a small amount of ill-defined low density in the periventricular white matter without mass effect compatible with periventricular small vessel disease. There is no acute abnormality of the calvarium. Impression: No acute intracranial process compared to the previous study. Chronic ischemic changes PROCEDURE INTERPRETED AT [facility] DEPARTMENT OF RADIOLOGY Final Report Signed by: Dr. Anabel Ramos
[2017-04-12] MEDS ORDERED: MECLIZINE 25 MG TABLET ONE (13:10)
[2017-04-12] MEDS ORDERED: ONDANSETRON 4 MG/2 ML VIAL ONE (13:10)
[2017-04-12 13:12] LABS: Basophils % 0.4 % (0.0-0.8); Eosinophils # 0.3 10*3/uL (0.0-0.87); Eosinophils % 4.1 % (0.00-10.9); Hematocrit 31.8 VOL% (42.0-52.0); Hemoglobin 10.4 GM/DL (14.0-18.0); Immature Granulocytes % 0.5 %; Immature Granulocytes Absolute 0.04 #; Lymphocytes # 1.4 10*3/uL (1.4-4.0); Lymphocytes % 17.2 % (21.2-54.2); Mean Corpuscular HGB Conc 32.7 GM/DL (32-36); Mean Corpuscular Hemoglobin 28 PG (27-34); Mean Corpuscular Volume 84.4 FL (87-102); Mean Platelet Volume 9.4 FL (9.6-12.0); Monocytes # 0.6 10*3/uL (0.11-0.8); Neutrophils # 5.7 10*3/uL (1.4-7.4); Neutrophils % 70.8 % (38.7-73.9); Platelet Count 328 T/CUMM (130-400); Red Blood Count 3.77 MC/CUMM (3.8-5.5); Red Cell Distribution Width 16.1 % (9.3-17.3)
--- NOTE | 2017-04-12 13:15 | XRay Report ---
History: Shortness of breath Date: 04/12/2017 Study: Chest x-ray AP portable Comparison exam: March 06, 2017 The cardiac silhouette is upper normal in size. The mediastinal contour is unchanged. The patient is status post prior median sternotomy. The pulmonary vasculature is not engorged. There is parenchymal and pleural scarring in either lower lung as on the previous study. There is some acute mild atelectasis/infiltrate in the right lung base . Osseous structures are similar. There is moderate thoracic spondylosis. Impression: Mild acute right lower lobe atelectasis/infiltrate is superimposed upon chronic lung disease. Mild pneumonia cannot be excluded. Otherwise unchanged PROCEDURE INTERPRETED AT [facility] DEPARTMENT OF RADIOLOGY Final Report Signed by: Dr. Anabel Ramos
[2017-04-12 13:26] LABS: INR 1.1; PT Patient Result 12.2 SECS
[2017-04-12 13:44] LABS: Alanine Aminotransferase 75 U/L (16-61); Albumin 2.3 G/DL (3.4-5.0); Alkaline Phosphatase 74 U/L (45-117); Aspartate Amino Transferase 54 U/L (0-37); Blood Urea Nitrogen 16 MG/DL (7-18); Calcium 8.9 MG/DL (8.5-10.1); Glucose 122 MG/DL (74-106); Osmolality,Calculated 278.5 MOS/KG (273-304); Potassium 3.7 MMOL/L (3.5-5.1); Sodium 139 MMOL/L (136-145); Total Protein 6.5 G/DL (6.4-8.3); Troponin I Only < 0.015 NG/ML (0.00-0.045)
[2017-04-12] MEDS ORDERED: cefTRIAXone 1,000 MG in SODIUM CHLORIDE 0.9% 100 ML IV STA (14:47)
[2017-04-12] MEDS ORDERED: ALBUTEROL/IPRATROPIUM 3 ML NEB RESP TX STA (14:47)
[2017-04-12] MEDS ORDERED: cefTRIAXone 1,000 MG VIAL ONE (15:43)
[2017-04-12] MEDS ORDERED: ONDANSETRON 4 MG/2 ML VIAL IV PRN (16:25)
[2017-04-12] MEDS ORDERED: GLUCAGON 1 MG VIAL IM PRN (16:25)
[2017-04-12] MEDS ORDERED: ACETAMINOPHEN 325 MG TABLET PO PRN (16:25)
[2017-04-12] MEDS ORDERED: PHENYLEPHRINE PO PRN (16:25)
[2017-04-12] MEDS ORDERED: GUAIFENESIN PO PRN (16:25)
[2017-04-12] MEDS ORDERED: MORPHINE 2 MG/1 ML SYRINGE IV PRN (16:25)
[2017-04-12] MEDS ORDERED: ALBUTEROL/IPRATROPIUM 3 ML NEB RESP TX PRN (16:25)
[2017-04-12] MEDS ORDERED: DEXTROSE 50% 25 GM/50 ML VIAL IV PRN (16:25)
[2017-04-12] MEDS: SODIUM CHLORIDE 0.9% 1,000 ML IV SCH (17:26)
[2017-04-12] MEDS: INSULIN REGULAR 100 UNIT/ML SUBCUT SCH ×2 (17:26→21:03)
[2017-04-12] MEDS: CARVEDILOL 3.125 MG TABLET PO SCH (17:55)
--- NOTE | 2017-04-12 18:58 | Family Practice History&Phys ---
Assessment and Plan (1) right lower lobe infiltrate Status: Acute Assessment and plan: We will start on appropriate medications and treat aggressively Current Visit: Yes (2) Recent mental status change Status: Acute Assessment and plan: We will order additional studies to evaluate the mental status change. This is something that he has occurred since his recent coronary bypass graft and is not related to the present infection Current Visit: Yes (3) Generalized weakness Status: Acute Assessment and plan: Patient has had progressive generalized weakness which is gradually gotten worse over the last several weeks. had recent falls Current Visit: Yes (4) Status post coronary artery bypass graft Status: Acute Assessment and plan: Patient had a recent coronary artery bypass graft. He has been weak and family states he's had a mental status change since the surgery. Current Visit: Yes (5) coronary artery disease with stents Status: Chronic Assessment and plan: Stable on present medications Current Visit: Yes (6) Vertigo Status: Acute Assessment and plan: Patient is had intermittent vertigo over the last several weeks. Gotten worse in the last several days Current Visit: Yes (7) Hypertension Status: Chronic Assessment and plan: Stable on present medications Current Visit: No (8) hyperlipidemia Status: Chronic Assessment and plan: Stable on present medication Current Visit: Yes (9) gastroesophageal reflux Status: Chronic Assessment and plan: Stable at present Current Visit: Yes History of Present Illness Chief complaint: weakness, vertigo, and cough History of present illness: Mr. Lazo is a 82 year old male HPI Narrative: Pt is an 82 y/o male who ambulated to the ED with complaint of weakness with an onset of months ago. Pt states that he fell x3 days ago and has vertigo mostly when he's attempting to stand up. He confirms associated sxs of cough, loss of balance, double vision, staggery gait but denies chest pain and slur in speech. He developed a nonproductive cough fever and increased weakness over the last several days. He was seen in emergency room and noted to have a low-grade fever with probable right lower lobe infiltrate. Patient has had a significant overall decline in mental status and in physical ability since her recent coronary bypass graft several months ago. In view of degree of symptoms will admit and evaluate further. Will start appropriate medications for pneumonia but also plan to do additional studies to evaluate his mental status change gait disturbance and other symptoms. Home Medications Medication Instructions Recorded Confirmed Type Cilostazol 50 mg PO BID 01/23/17 04/12/17 History Citalopram [CeleXA] 20 mg PO DAILY 01/23/17 04/12/17 History Ezetimibe [Zetia] 10 mg PO DAILY 01/23/17 04/12/17 History Pantoprazole Tab [Protonix Tab] 40 mg PO BID 01/23/17 04/12/17 History Atorvastatin [Lipitor] 40 mg PO BEDTIME tablet 02/01/17 04/12/17 Rx Carvedilol [Coreg] 3.125 mg PO BID tablet 02/01/17 04/12/17 Rx Aspirin EC Tab 81 mg PO DAILY 04/12/17 04/12/17 History Phenylephrine/Guaifenesin [Deconex 1 tablet PO QID PRN 04/12/17 04/12/17 History IR] Allergies Allergy/AdvReac Type Severity Reaction Status Date / Time No Known Allergies Allergy Verified 01/24/17 07:03 Medical,Surgical,& Family Hx - Medical History Cardio: History of: Cardiac Dysrhythmia (L BBB, Coronary Stents), CAD, Hypertension Psychological: History of: Depression Neurology: No history of: Seizures Endocrine: History of: Dyslipidemia Respiratory: History of: Obstructive Sleep Apnea Gastrointestinal: History of: GERD Musculoskeletal: History of: Back/Neck Problems (Arthritis) No history of: Amputation - Surgical History Cardiac Surgeries: Sugical HX of: Cardiac Catheterization (stents), Cardiac Surgery (Two-vessel CABG) Thoracic Surgeries: Patient denies;: Organ Transplant, Lobectomy Neurologic Surgeries: Patient denies: Neurologic Surgery Abdominal Surgeries: Surgical HX of: Abdominal Surgery, Appendectomy Reproductive Surgeries: Patient denies;: Genitourinary Surgery - Family History Family History: Reports;: Family Heart Disease, Family Hypertension - Social History Smoking Status: Former smoker Have you smoked in the last 12 months: No Frequency of Alcohol Use: None Type of Drug Use: None Marital Status: Lives With:: Spouse Functional capacity: independent ambulation Exam - Constitutional Vitals: Period Temp Pulse Resp BP Sys/Reed Pulse Ox Last 24 Hr 98.3 F-98.5 F 74-97 14-20 118-131/70-85 92-100 General appearance: mild distress - Head Head exam: Present: normal inspection - Eye Pupils: Present: JOHN - ENT ENT exam: Present: normal exam - Neck Neck exam: Present: normal inspection - Respiratory Respiratory exam: Present: clear to auscultation bilaterally - Cardiovascular Cardiovascular exam: Present: irregular rhythm - GI/Abdominal GI/Abdominal exam: Present: normal bowel sounds, soft - Extremities Exam Extremities exam: Present: normal inspection - Back Exam Back exam: Present: normal inspection - Neurological Exam Neurological exam: Present: alert, oriented X3 - Psychiatric Psychiatric exam: Present: flat affect - Skin Skin exam: Present: normal color Results - Labs CBC & BMP: 04/13/17 03:21 04/13/17 03:21 Quality Measures - Stroke Symptom Onset Unknown: No
[2017-04-12 19:21] LABS: Troponin I Only 0.017 NG/ML (0.00-0.045)
[2017-04-12] MEDS: PANTOPRAZOLE 40 MG TABLET PO SCH (21:00)
[2017-04-12] MEDS: ENOXAPARIN 40 MG/0.4 ML SYRINGE SUBCUT SCH (21:00)
[2017-04-12] MEDS: CILOSTAZOL 50 MG TABLET PO SCH (21:00)
[2017-04-12] MEDS: ATORVASTATIN 40 MG TABLET PO SCH (21:00)
[2017-04-12] MEDS: DOCUSATE SODIUM 100 MG CAPSULE PO SCH (21:00)
[2017-04-13 03:47] LABS: Basophils % 0.4 % (0.0-0.8); Eosinophils # 0.3 10*3/uL (0.0-0.87); Eosinophils % 4.5 % (0.00-10.9); Hemoglobin 9.3 GM/DL (14.0-18.0); Immature Granulocytes % 0.4 %; Immature Granulocytes Absolute 0.03 #; Lymphocytes # 1.5 10*3/uL (1.4-4.0); Lymphocytes % 21.6 % (21.2-54.2); Mean Corpuscular HGB Conc 32.1 GM/DL (32-36); Mean Corpuscular Hemoglobin 27 PG (27-34); Mean Corpuscular Volume 84.5 FL (87-102); Mean Platelet Volume 9.6 FL (9.6-12.0); Monocytes # 0.6 10*3/uL (0.11-0.8); Monocytes % 8.2 % (1.7-12.7); Neutrophils # 4.4 10*3/uL (1.4-7.4); Neutrophils % 64.9 % (38.7-73.9); Platelet Count 307 T/CUMM (130-400); Red Blood Count 3.43 MC/CUMM (3.8-5.5); Red Cell Distribution Width 16.2 % (9.3-17.3); White Blood Count 6.9 T/CUMM (4-12)
[2017-04-13 04:24] LABS: Albumin 1.9 G/DL (3.4-5.0); Bilirubin,Total 0.6 MG/DL (0.2-1.0); Calcium 8.3 MG/DL (8.5-10.1); Magnesium 1.8 MG/DL (1.8-2.4); Osmolality,Calculated 279.4 MOS/KG (273-304); Potassium 4.2 MMOL/L (3.5-5.1); Risk Ratio 2.2; Total Protein 5.4 G/DL (6.4-8.3); VLDL CHOLESTEROL 8.8 MG/DL
--- NOTE | 2017-04-13 08:30 | Family Practice Progress Note ---
Family Practice - PN: Subj Interval history: Patient states that he rested well during the night. Had a temperature of 100.1 during the night. Has minimal cough this a.m.. He denies any new complaints. Patient has not attempted to ambulate and is primarily mid staying in bed since admission. His lab studies are stable at present. He was noted to have a probable previous CVA on head CT. No history of previous CVA noted by patient or family. Patient has had a significant decline since recent coronary bypass graft. I have ordered a number of studies to help further evaluate the acute changes. Encourage patient to sit in chair and ambulating in room with assistance. Plan to evaluate thoroughly while we have him in the hospital. Will repeat chest x-ray in a.m.. Exam (Progress Note) - Constitutional Vitals: Period Temp Pulse Resp BP Sys/Reed Pulse Ox Last 24 Hr 98.3 F-100.1 F 74-98 14-20 107-131/54-85 91-100 Results - Labs CBC & BMP: 04/13/17 03:21 04/13/17 03:21 Assessment and Plan (1) right lower lobe infiltrate Status: Acute Assessment and plan: We will start on appropriate medications and treat aggressively Current Visit: Yes (2) Recent mental status change Status: Acute Assessment and plan: We will order additional studies to evaluate the mental status change. This is something that he has occurred since his recent coronary bypass graft and is not related to the present infection Current Visit: Yes (3) Generalized weakness Status: Acute Assessment and plan: Patient has had progressive generalized weakness which is gradually gotten worse over the last several weeks. had recent falls Current Visit: Yes (4) Status post coronary artery bypass graft Status: Acute Assessment and plan: Patient had a recent coronary artery bypass graft. He has been weak and family states he's had a mental status change since the surgery. Current Visit: Yes (5) coronary artery disease with stents Status: Chronic Assessment and plan: Stable on present medications Current Visit: Yes (6) Vertigo Status: Acute Assessment and plan: Patient is had intermittent vertigo over the last several weeks. Gotten worse in the last several days Current Visit: Yes (7) Hypertension Status: Chronic Assessment and plan: Stable on present medications Current Visit: No (8) hyperlipidemia Status: Chronic Assessment and plan: Stable on present medication Current Visit: Yes (9) gastroesophageal reflux Status: Chronic Assessment and plan: Stable at present Current Visit: Yes Quality Measures - Stroke Symptom Onset Unknown: No
[2017-04-13] MEDS: INSULIN REGULAR 100 UNIT/ML SUBCUT SCH ×4 (08:51→23:35)
[2017-04-13] MEDS: ASPIRIN EC 81 MG TABLET PO SCH (08:58)
[2017-04-13] MEDS: CITALOPRAM 20 MG TABLET PO SCH (08:58)
[2017-04-13] MEDS: CILOSTAZOL 50 MG TABLET PO SCH ×2 (08:58→20:31)
[2017-04-13] MEDS: PANTOPRAZOLE 40 MG TABLET PO SCH ×2 (08:58→20:31)
[2017-04-13] MEDS: EZETIMIBE 10 MG TABLET PO SCH (08:58)
[2017-04-13] MEDS: CARVEDILOL 3.125 MG TABLET PO SCH ×2 (08:58→16:27)
[2017-04-13] MEDS: SODIUM CHLORIDE 0.45% 1,000 ML IV SCH (08:59)
[2017-04-13] MEDS: SODIUM CHLORIDE 0.9% 1,000 ML IV SCH (08:59)
[2017-04-13] MEDS: DOCUSATE SODIUM 100 MG CAPSULE PO SCH ×2 (08:59→20:31)
[2017-04-13] MEDS ORDERED: PANTOPRAZOLE 40 MG TABLET PO SCH (09:00)
--- NOTE | 2017-04-13 10:08 | Ultrasound Report ---
Exam: Carotid ultrasound Date: 04/13/2017 Comparison: None Technique: Duplex scans of the carotid and vertebral arteries using B-mode/Aburto scale imaging and Doppler spectral analysis and color flow. Reason: Alteration of consciousness, frequent falls, dizziness Findings: The right ICA measures 4.4 mm in diameter and the left ICA measures 5.1 mm in diameter. Color-flow documented in the visualized arteries. The peak systolic velocities are as follows: Right CCA: 58.5 cm/s Right ICA: 179.8 cm/s Right ECA: 110.8 cm/s Left CCA: 62.3 cm/s Left ICA: 171.6 cm/s Left ECA: 76.8 cm/s The peak systolic ICA/CCA velocity ratios are as follows: 3.1 on the right and 2.8 on the left. Antegrade flow is present in both vertebral arteries. Impression:[50-69% stenosis in both internal carotid arteries with heterogeneous plaque formation. Antegrade flow in both vertebral arteries.] The Society of Radiologists in Ultrasound consensus conference criteria was used. The Ultrasound images were captured and stored. PROCEDURE INTERPRETED AT [facility] DEPARTMENT OF RADIOLOGY Final Report Signed by: Dr. Bobbi Kerr
--- NOTE | 2017-04-13 14:04 | XRay Report ---
XR chest 2V Indication: Shortness of breath. Chest 2 views: Comparison 04/12/2017 shows a very small posterior right pleural effusion with continued bibasilar atelectasis. No new infiltrates are identified since yesterday. Heart size remains normal. Mediastinal sutures are stable. Impression: Little significant change from yesterday. Confirmation of a very small posterior right pleural effusion. PROCEDURE INTERPRETED AT [facility] DEPARTMENT OF RADIOLOGY Final Report Signed by: Luis Aggarwal M.D.
--- NOTE | 2017-04-13 14:05 | XRay Report ---
XR sinus Indication: Maxillary sinus pressure. Sinuses 3 views: No mucosal thickening or air-fluid levels are identified within the paranasal sinuses. No bone erosion is seen. Impression: Negative sinuses. PROCEDURE INTERPRETED AT [facility] DEPARTMENT OF RADIOLOGY Final Report Signed by: Luis Aggarwal M.D.
--- NOTE | 2017-04-13 15:48 | Magnetic Resonance Report ---
Exam: MR angio head wo arina (QASIM) Date: 04/13/2017 4:00 AM Comparison: None Indication: Alteration of consciousness with frequent falls Technique:[Utilizing 3-D [id number] imaging and MR a head obtained without contrast. 3-D volume rendered scans were obtained. Degree of stenosis based on NASCET criteria. Scans were obtained on a 1.5 Sophia magnet.] Findings: Tortuosity of the arteries with no definite aneurysm. Right OPERATIONS/DISPATCH fills from the right internal carotid artery. No hemodynamically significant stenosis demonstrated. Impression: Tortuosity arteries with no definite aneurysm. circulation with right OPERATIONS/DISPATCH filling from the right ICA which represents a normal variant. PROCEDURE INTERPRETED AT [facility] DEPARTMENT OF RADIOLOGY Final Report Signed by: Dr. Bobbi Kerr
--- NOTE | 2017-04-13 16:01 | Magnetic Resonance Report ---
Exam: MR head/brain w and wo con Date: 04/13/2017 4:00 AM Comparison: CT brain 04/12/2017 Indication: Alteration of consciousness, frequent falls Technique:[Multiple acquisitions were obtained including sagittal T1, coronal T1 scans following injection of 15 cc of Dotarem, and axial ADC, diffusion, FLAIR, T2, GRE, and T1 scans before and after the injection of contrast. Scans were obtained on a 1.5 Sophia magnet.] Findings: The ventricles are normal in size with no midline displacement. The pituitary has a normal appearance and the cerebellar tonsils are normal in their location. No acute infarction is identified on the diffusion scans. No evidence of hemorrhage, mass, extracerebral collection, or abnormal enhancement. Diffuse atrophy and multiple FLAIR/T2 hyperintensities. Asymmetric atrophy in the left temporal lobe which may be related to CT described possible chronic infarction. No acute findings in the paranasal sinuses, orbits, temporal bones, [place] of [place], or venous sinuses. Impression: No acute intracranial pathology identified. 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 FLAIR/T2 hyperintensities can also be associated with demyelinating disease, vasculitis, migraines, viral illness, etc. PROCEDURE INTERPRETED AT [facility] DEPARTMENT OF RADIOLOGY Final Report Signed by: Dr. Bobbi Kerr
[2017-04-13] MEDS: ENOXAPARIN 40 MG/0.4 ML SYRINGE SUBCUT SCH (20:31)
[2017-04-13] MEDS: ATORVASTATIN 40 MG TABLET PO SCH (20:31)
[2017-04-13] MEDS: cefTRIAXone 1,000 MG in SODIUM CHLORIDE 0.9% 100 ML IV SCH (20:32)
[2017-04-14 02:46] LABS: Basophils % 0.4 % (0.0-0.8); Eosinophils # 0.3 10*3/uL (0.0-0.87); Hematocrit 29.3 VOL% (42.0-52.0); Hemoglobin 9.6 GM/DL (14.0-18.0); Immature Granulocytes % 0.4 %; Immature Granulocytes Absolute 0.03 #; Lymphocytes # 1.4 10*3/uL (1.4-4.0); Lymphocytes % 21.3 % (21.2-54.2); Mean Corpuscular HGB Conc 32.8 GM/DL (32-36); Mean Corpuscular Hemoglobin 27 PG (27-34); Mean Platelet Volume 9.3 FL (9.6-12.0); Monocytes # 0.6 10*3/uL (0.11-0.8); Monocytes % 9.2 % (1.7-12.7); Neutrophils # 4.3 10*3/uL (1.4-7.4); Neutrophils % 63.7 % (38.7-73.9); Platelet Count 307 T/CUMM (130-400); Red Blood Count 3.53 MC/CUMM (3.8-5.5); White Blood Count 6.8 T/CUMM (4-12)
[2017-04-14 03:14] LABS: Osmolality,Calculated 278.4 MOS/KG (273-304)
[2017-04-14] MEDS: SODIUM CHLORIDE 0.45% 1,000 ML IV SCH ×2 (05:56→12:11)
[2017-04-14] MEDS: INSULIN REGULAR 100 UNIT/ML SUBCUT SCH ×4 (08:50→21:11)
[2017-04-14] MEDS: CARVEDILOL 3.125 MG TABLET PO SCH ×2 (09:19→17:18)
[2017-04-14] MEDS: CILOSTAZOL 50 MG TABLET PO SCH ×2 (09:19→21:10)
[2017-04-14] MEDS: PANTOPRAZOLE 40 MG TABLET PO SCH ×2 (09:19→21:10)
[2017-04-14] MEDS: DOCUSATE SODIUM 100 MG CAPSULE PO SCH ×2 (09:19→21:10)
[2017-04-14] MEDS: CITALOPRAM 20 MG TABLET PO SCH (09:19)
[2017-04-14] MEDS: EZETIMIBE 10 MG TABLET PO SCH (09:19)
[2017-04-14] MEDS: ASPIRIN EC 81 MG TABLET PO SCH (09:19)
--- NOTE | 2017-04-14 16:19 | Internal Med Progress Note ---
Assessment and Plan (1) Generalized weakness Status: Acute Current Visit: Yes (2) Status post coronary artery bypass graft Status: Chronic Current Visit: No (3) right lower lobe infiltrate Status: Acute Current Visit: Yes (4) coronary artery disease with stents Status: Chronic Current Visit: No (5) Debility Status: Chronic Current Visit: Yes (6) Diabetes Status: Chronic Current Visit: Yes Qualifiers: Diabetes mellitus type: type 2 Diabetes mellitus complication status: without complication Diabetes mellitus licsw insulin use: without intermediate use Qualified Code(s): E11.9 - Type 2 diabetes mellitus without complications (7) Hypertension Status: Chronic Current Visit: Yes Qualifiers: Hypertension type: essential hypertension Qualified Code(s): I10 - Essential (primary) hypertension Internal Medicine - PN: Subj Interval history: This is an 82 year old male patient of Dr. Jean with history of CAD, CABG, HTN , DM, dyslipidemia, who presented to ER with RLL pneumonia. He has had altered mental status since CABG. Slowly improving. Adding albumin to decrease potential of third spacing. 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 Exam (Progress Note) - Constitutional Vitals: Period Temp Pulse Resp BP Sys/Reed Pulse Ox Last 24 Hr 98.8 F-99.6 F 90-109 15-22 116-159/64-89 90-95 General appearance: no acute distress - Respiratory Respiratory exam: Present: rhonchi - Cardiovascular Cardiovascular exam: Present: regular rate and rhythm - GI/Abdominal GI/Abdominal exam: Present: soft. Absent: tenderness - Extremities Exam Extremities exam: Absent: edema - Neurological Exam Neurological exam: Present: alert - Psychiatric Psychiatric exam: Present: normal mood - Skin Skin exam: Present: warm, dry Results - Labs CBC & BMP: 04/14/17 02:28 04/14/17 02:28 - Diagnostic Findings Procedure: Chest x-ray: report reviewed by me Quality Measures - Stroke Symptom Onset Unknown: No
[2017-04-14] MEDS: ALBUMIN 25% 25 GM in PREMIX 1 EACH IV SCH (21:08)
[2017-04-14] MEDS: methylPREDNISolone SOD SUC 40 MG/1 ML VIAL IV SCH (21:09)
[2017-04-14] MEDS: ATORVASTATIN 40 MG TABLET PO SCH (21:10)
[2017-04-14] MEDS: ENOXAPARIN 40 MG/0.4 ML SYRINGE SUBCUT SCH (21:10)
[2017-04-14] MEDS: cefTRIAXone 1,000 MG in SODIUM CHLORIDE 0.9% 100 ML IV SCH (21:11)
[2017-04-14] MEDS: ALBUTEROL/IPRATROPIUM 3 ML NEB RESP TX SCH (23:10)
[2017-04-15] MEDS: SODIUM CHLORIDE 0.45% 1,000 ML IV SCH ×2 (00:15→17:25)
[2017-04-15] MEDS: ALBUTEROL/IPRATROPIUM 3 ML NEB RESP TX SCH ×6 (03:10→23:54)
[2017-04-15 04:30] LABS: Basophils % 0.2 % (0.0-0.8); Hematocrit 29.1 VOL% (42.0-52.0); Hemoglobin 9.5 GM/DL (14.0-18.0); Immature Granulocytes % 0.3 %; Immature Granulocytes Absolute 0.02 #; Lymphocytes # 0.7 10*3/uL (1.4-4.0); Mean Corpuscular HGB Conc 32.6 GM/DL (32-36); Mean Corpuscular Hemoglobin 27 PG (27-34); Mean Corpuscular Volume 82.2 FL (87-102); Mean Platelet Volume 9.8 FL (9.6-12.0); Monocytes # 0.1 10*3/uL (0.11-0.8); Monocytes % 1.9 % (1.7-12.7); Neutrophils # 4.9 10*3/uL (1.4-7.4); Neutrophils % 85.6 % (38.7-73.9); Platelet Count 317 T/CUMM (130-400); Red Blood Count 3.54 MC/CUMM (3.8-5.5); Red Cell Distribution Width 15.8 % (9.3-17.3); White Blood Count 5.8 T/CUMM (4-12)
[2017-04-15 05:04] LABS: Calcium 8.9 MG/DL (8.5-10.1); Osmolality,Calculated 281.4 MOS/KG (273-304); Potassium 3.9 MMOL/L (3.5-5.1)
[2017-04-15] MEDS: methylPREDNISolone SOD SUC 40 MG/1 ML VIAL IV SCH ×3 (05:17→20:44)
[2017-04-15] MEDS: ALBUMIN 25% 25 GM in PREMIX 1 EACH IV SCH ×3 (05:17→20:44)
[2017-04-15 06:40] LABS: Apearance,Urine CLEAR (Clear); Bacteria,Urine Occasional /HPF (Few); Bilirubin,Urine Negative (Negative); Blood, Urine Large mg/dL (Negative); Glucose,Urine (UA) Negative (Negative); Ketones,Urine Negative (Negative); Mucus,Urine Occasional /LPF (Occasional); Nitrite,Urine Negative (Negative); Protein,Urine Negative; RBC,Urine 3 /HPF (0-4); Urine Color Straw (Yellow); Urine Specific Gravity 1.003 (1.001-1.035); Urine Urobilinogen < 2.0 EU/DL (0.2-1.0); WBC,Urine 1 /HPF (0-6)
[2017-04-15] MEDS: BUDESONIDE 0.25 MG/2 ML NEB RESP TX SCH ×2 (08:08→20:02)
[2017-04-15] MEDS: INSULIN REGULAR 100 UNIT/ML SUBCUT SCH ×4 (09:14→21:48)
[2017-04-15] MEDS: EZETIMIBE 10 MG TABLET PO SCH (09:15)
[2017-04-15] MEDS: CILOSTAZOL 50 MG TABLET PO SCH ×2 (09:15→20:45)
[2017-04-15] MEDS: CITALOPRAM 20 MG TABLET PO SCH (09:15)
[2017-04-15] MEDS: DOCUSATE SODIUM 100 MG CAPSULE PO SCH ×2 (09:16→20:45)
[2017-04-15] MEDS: CARVEDILOL 3.125 MG TABLET PO SCH ×2 (09:16→17:35)
[2017-04-15] MEDS: PANTOPRAZOLE 40 MG TABLET PO SCH ×2 (09:16→20:45)
[2017-04-15] MEDS: ASPIRIN EC 81 MG TABLET PO SCH (09:16)
--- NOTE | 2017-04-15 13:30 | Internal Med Progress Note ---
Assessment and Plan (1) Generalized weakness Status: Resolved Current Visit: Yes (2) Status post coronary artery bypass graft Status: Chronic Current Visit: No (3) right lower lobe infiltrate Status: Acute Current Visit: Yes (4) coronary artery disease with stents Status: Chronic Current Visit: No (5) Diabetes Status: Chronic Current Visit: Yes Qualifiers: Diabetes mellitus type: type 2 Diabetes mellitus complication status: without complication Diabetes mellitus terminal operations supervisor insulin use: without terminal operations supervisor use Qualified Code(s): E11.9 - Type 2 diabetes mellitus without complications (6) Hypertension Status: Chronic Current Visit: Yes Qualifiers: Hypertension type: essential hypertension Qualified Code(s): I10 - Essential (primary) hypertension Internal Medicine - PN: Subj Interval history: This is an 82 year old male patient of Dr. Jean with history of CAD, CABG, HTN , DM, dyslipidemia, who presented to ER with RLL pneumonia. He has had altered mental status since CABG. Slowly improving. Adding albumin to decrease potential of third spacing. 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 Doing better today, Sunday, and will discharge him to home in the morning. Exam (Progress Note) - Constitutional Vitals: Period Temp Pulse Resp BP Sys/Reed Pulse Ox Last 24 Hr 97.6 F-99.3 F 79-108 16-20 137-150/70-82 90-99 Exam: General appearance: no acute distress - Respiratory Respiratory exam: Present: clear to auscultation and rhonchi resolved - Cardiovascular Cardiovascular exam: Present: regular rate and rhythm - GI/Abdominal GI/Abdominal exam: Present: soft. Absent: tenderness - Extremities Exam Extremities exam: Absent: edema - Neurological Exam Neurological exam: Present: alert - Psychiatric Psychiatric exam: Present: normal mood - Skin Skin exam: Present: warm, dry; rash across lower face consistent with rosacea Results - Labs CBC & BMP: 04/15/17 04:14 04/15/17 04:14 Quality Measures - Stroke Symptom Onset Unknown: No
[2017-04-15] MEDS: MOMETASONE 0.1% CREAM 15 GM TUBE TOP SCH ×2 (17:35→20:45)
--- NOTE | 2017-04-15 20:01 | Discharge Summary ---
Hospital Course - Hospital Course Hospital Course: This is an 82 year old male patient of Dr. Jean with history of CAD, CABG, HTN , DM, dyslipidemia, who presented to ER with RLL pneumonia. He has had altered mental status since CABG. Doing better and will discharge him to home. Diagnosis - Discharge Diagnosis (1) Generalized weakness Status: Resolved (2) Status post coronary artery bypass graft Status: Chronic (3) right lower lobe infiltrate Status: Acute (4) coronary artery disease with stents Status: Chronic (5) Diabetes Status: Chronic (6) Hypertension Status: Chronic (7) Recent mental status change Status: Resolved Discharge Plan - Discharge Data Disposition: Disch To Home/Self Care Condition at Discharge: Stable Discharge Diet: diabetic diet Activity: increase activity as tolerated - Discharge Medications New Docusate Sodium Cap [Colace Cap] 100 mg PO BID capsule methylPREDNISolone DOSEPAK [Medrol Dosepak] 4 mg PO DIRECTED #1 pack Mometasone 0.1% Cream [Elocon 0.1% Cream] 1 applic TOP BID #1 applic Albuterol Inhaler [Proventil Inhaler] 2 puff INH Q4H PRN #1 inhaler PRN Reason: Shortness Of Breath/Wheezing Cefuroxime Tab [Ceftin] 250 mg PO BID #20 tablet Continue Ezetimibe [Zetia] 10 mg PO DAILY Citalopram [CeleXA] 20 mg PO DAILY Phenylephrine/Guaifenesin [Deconex IR] 1 tablet PO QID PRN PRN Reason: Cough Pantoprazole Tab [Protonix Tab] 40 mg PO BID Cilostazol 50 mg PO BID Atorvastatin [Lipitor] 40 mg PO BEDTIME tablet Carvedilol [Coreg] 3.125 mg PO BID tablet Aspirin EC Tab 81 mg PO DAILY - Follow Up or Referral - Forms/Instructions Exam - Constitutional Vitals: Period Temp Pulse Resp BP Sys/Reed Pulse Ox Last 24 Hr 97.6 F-99.3 F 79-108 18-20 128-150/53-82 91-99 Exam: General appearance: no acute distress - Respiratory Respiratory exam: Present: clear to auscultation - Cardiovascular Cardiovascular exam: Present: regular rate and rhythm - GI/Abdominal GI/Abdominal exam: Present: soft. Absent: tenderness - Extremities Exam Extremities exam: Absent: edema - Neurological Exam Neurological exam: Present: alert - Psychiatric Psychiatric exam: Present: normal mood - Skin Skin exam: Present: warm, dry; rash across lower face consistent with rosacea Discharge Results Procedures and tests throughout hospitalization: Pending Orders 04/12/17 15:01 Blood Culture Stat 04/16/17 04:00 Comprehensive Metabolic Panel IN AM Labs on day of discharge: Labs from last 24 hours 04/15/17 04/15/17 04/15/17 15:58 11:59 07:54 WBC RBC Hgb Hct MCV MCH MCHC RDW Plt Count MPV Neut % (Auto) Lymph % (Auto) [place] % (Auto) Eos % (Auto) Baso % (Auto) Neut # (Auto) Lymph # (Auto) [place] # (Auto) Eos # (Auto) Baso # (Auto) Immature Gran % Nucleated RBC % Immature Gran # Nucleated RBCs # Sodium Potassium Chloride Carbon Dioxide Anion Gap BUN Creatinine GFR Calculation BUN/Creatinine Ratio Glucose POC Glucose 147 H 289 H 164 H Calculated Osmolality Calcium Urine Color Urine Appearance Urine pH Ur Specific [place] Urine Protein Urine Glucose (UA) Urine Ketones Urine Blood Urine Nitrate Urine Bilirubin Urine Urobilinogen Urine Leukocytes Urine RBC Urine WBC Urine Bacteria Urine Mucus Ur Culture Indicated? 04/15/17 04/15/17 04/15/17 05:34 04:14 04:14 WBC 5.8 RBC 3.54 L Hgb 9.5 L Hct 29.1 L MCV 82.2 L MCH 27 MCHC 32.6 RDW 15.8 Plt Count 317 MPV 9.8 Neut % (Auto) 85.6 H Lymph % (Auto) 12.0 L [place] % (Auto) 1.9 Eos % (Auto) 0.0 Baso % (Auto) 0.2 Neut # (Auto) 4.9 Lymph # (Auto) 0.7 L [place] # (Auto) 0.1 L Eos # (Auto) 0.0 Baso # (Auto) 0.0 Immature Gran % 0.3 Nucleated RBC % 0.0 Immature Gran # 0.02 Nucleated RBCs # 0.00 Sodium 140 Potassium 3.9 Chloride 106 Carbon Dioxide 25 Anion Gap 12.9 BUN 13 Creatinine 0.90 GFR Calculation 86 BUN/Creatinine Ratio 14.00 Glucose 150 H POC Glucose Calculated Osmolality 281.4 Calcium 8.9 Urine Color Straw Urine Appearance Clear Urine pH 5.0 Ur Specific Mobile 1.003 Urine Protein Negative Urine Glucose (UA) Negative Urine Ketones Negative Urine Blood Large Urine Nitrate Negative Urine Bilirubin Negative Urine Urobilinogen < 2.0 H Urine Leukocytes Negative Urine RBC 3 Urine WBC 1 Urine Bacteria Occasional Urine Mucus Occasional Ur Culture Indicated? Not indicated 04/14/17 20:17 WBC RBC Hgb Hct MCV MCH MCHC RDW Plt Count MPV Neut % (Auto) Lymph % (Auto) [place] % (Auto) Eos % (Auto) Baso % (Auto) Neut # (Auto) Lymph # (Auto) [place] # (Auto) Eos # (Auto) Baso # (Auto) Immature Gran % Nucleated RBC % Immature Gran # Nucleated RBCs # Sodium Potassium Chloride Carbon Dioxide Anion Gap BUN Creatinine GFR Calculation BUN/Creatinine Ratio Glucose POC Glucose 145 H Calculated Osmolality Calcium Urine Color Urine Appearance Urine pH Ur Specific [place] Urine Protein Urine Glucose (UA) Urine Ketones Urine Blood Urine Nitrate Urine Bilirubin Urine Urobilinogen Urine Leukocytes Urine RBC Urine WBC Urine Bacteria Urine Mucus Ur Culture Indicated? Preliminary micro results at discharge 04/12/17 15:01 Blood Culture - Preliminary Blood No growth at 3 days 04/12/17 15:01 Blood Culture - Preliminary Blood No growth at 3 days DS: Provider Date of admission: 04/12/17 14:59 Primary care physician: . No PCP Attending physician on admission: Heath Jean DO Consults: 04/12/17 16:25 Consult to Case Mgmt/Social Srvs [CONS] Routine Reason for Case Mgmt/Social Srvs: Discharge Planning 04/14/17 20:03 Consult to Dietitian [CONS] Routine Reason for Dietitian: Diet Recommendations Consult Comment: protein requirements 04/14/17 20:11 Consult to Physical Therapy [CONS] Routine Reason for Physical Therapy: Evaluate and Treat Discharging clinician: Karen Velasquez DO Expected date of discharge: 04/16/17
[2017-04-15] MEDS: ENOXAPARIN 40 MG/0.4 ML SYRINGE SUBCUT SCH (20:45)
[2017-04-15] MEDS: ATORVASTATIN 40 MG TABLET PO SCH (20:45)
[2017-04-15] MEDS: cefTRIAXone 1,000 MG in SODIUM CHLORIDE 0.9% 100 ML IV SCH (21:48)
[2017-04-16] MEDS: ALBUMIN 25% 25 GM in PREMIX 1 EACH IV SCH (04:25)
[2017-04-16] MEDS: methylPREDNISolone SOD SUC 40 MG/1 ML VIAL IV SCH (04:25)
[2017-04-16] MEDS: ALBUTEROL/IPRATROPIUM 3 ML NEB RESP TX SCH ×3 (05:05→10:50)
[2017-04-16 05:58] LABS: Albumin 3.2 G/DL (3.4-5.0); Bilirubin,Total 0.4 MG/DL (0.2-1.0); Calcium 8.8 MG/DL (8.5-10.1); Potassium 4.2 MMOL/L (3.5-5.1); Total Protein 6.4 G/DL (6.4-8.3)
[2017-04-16] MEDS: BUDESONIDE 0.25 MG/2 ML NEB RESP TX SCH (07:35)
[2017-04-16] MEDS: EZETIMIBE 10 MG TABLET PO SCH (09:03)
[2017-04-16] MEDS: PANTOPRAZOLE 40 MG TABLET PO SCH (09:04)
[2017-04-16] MEDS: ASPIRIN EC 81 MG TABLET PO SCH (09:04)
[2017-04-16] MEDS: CITALOPRAM 20 MG TABLET PO SCH (09:04)
[2017-04-16] MEDS: CILOSTAZOL 50 MG TABLET PO SCH (09:04)
[2017-04-16] MEDS: CARVEDILOL 3.125 MG TABLET PO SCH (09:05)
[2017-04-16] MEDS: INSULIN REGULAR 100 UNIT/ML SUBCUT SCH (09:06)
[2017-04-16 11:12] VITALS: BP 154/75
== END 2017-04-16 11:30 | disposition home or self-care (01) | DRG 195 ==
LOC: N.ED 11:41 → N.EDINP 14:59 → N.2E 16:58
PROVIDERS: ADMIT Family Medicine; ATTEND Family Medicine

== ENCOUNTER 2017-04-26 20:01 | Inpatient (IN) ==
[2017-04-26] MEDS ORDERED: methylPREDNISolone SOD SUC 125 MG/2 ML VIAL IV STA (20:20)
[2017-04-26] MEDS ORDERED: ALBUTEROL/IPRATROPIUM 3 ML NEB RESP TX STA (20:20)
[2017-04-26] MEDS ORDERED: AZITHROMYCIN INJ 500 MG in SODIUM CHLORIDE 0.9% 250 ML IV STA (20:20)
[2017-04-26 20:34] LABS: Basophils % 0.3 % (0.0-0.8); Eosinophils # 0.3 10*3/uL (0.0-0.87); Eosinophils % 3.3 % (0.00-10.9); Hematocrit 33.6 VOL% (42.0-52.0); Immature Granulocytes % 0.7 %; Immature Granulocytes Absolute 0.06 #; Lymphocytes # 1.5 10*3/uL (1.4-4.0); Lymphocytes % 17.2 % (21.2-54.2); Mean Corpuscular HGB Conc 32.7 GM/DL (32-36); Mean Corpuscular Hemoglobin 27 PG (27-34); Mean Corpuscular Volume 82.8 FL (87-102); Mean Platelet Volume 9.8 FL (9.6-12.0); Monocytes # 0.9 10*3/uL (0.11-0.8); Monocytes % 9.9 % (1.7-12.7); Neutrophils % 68.6 % (38.7-73.9); Platelet Count 384 T/CUMM (130-400); Red Blood Count 4.06 MC/CUMM (3.8-5.5); Red Cell Distribution Width 17.6 % (9.3-17.3); White Blood Count 8.7 T/CUMM (4-12)
--- NOTE | 2017-04-26 20:35 | Emergency Department Note ---
Arrival - Arrival Chief Complaint: Weakness Stated Complaint: NO ENERGY ED Nursing Triage Note: patient c/o weakness and has not been able to take a deep breath after being discharged from the hospital for pnu on april 16 Mode of Arrival: Wheelchair Limitations: No Limitations Source: Patient Time Seen by Provider: 04/26/17 20:20 - History of Present Illness HPI Narrative: This 82-year-old white male presents with complaints of extreme fatigue, pleuritic type chest pain, bothersome dry cough, and occasional expiratory wheeze. Patient has been hospitalized first week of April for pneumonia and prior to that in the middle of January he had bypass surgery. Since his bypass surgery he has not had any chest pain typical of his prior anginal complaints. He currently denies nausea, vomiting, purulence, hemoptysis, palpitations, or night sweats. Currently he appears in stable medical condition. Onset (ago): week(s) (Patient is felt bad since discharge the first week of April for pneumonia) Allergies/Adverse Reactions: Allergies Allergy/AdvReac Type Severity Reaction Status Date / Time No Known Allergies Allergy Verified 01/24/17 07:03 Home Medications: Home Medications Medication Instructions Recorded Confirmed Type Cilostazol 50 mg PO BID 01/23/17 04/12/17 History Citalopram [CeleXA] 20 mg PO DAILY 01/23/17 04/12/17 History Ezetimibe [Zetia] 10 mg PO DAILY 01/23/17 04/12/17 History Pantoprazole Tab [Protonix Tab] 40 mg PO BID 01/23/17 04/12/17 History Atorvastatin [Lipitor] 40 mg PO BEDTIME tablet 02/01/17 04/12/17 Rx Carvedilol [Coreg] 3.125 mg PO BID tablet 02/01/17 04/12/17 Rx Aspirin EC Tab 81 mg PO DAILY 04/12/17 04/12/17 History Phenylephrine/Guaifenesin [Deconex 1 tablet PO QID PRN 04/12/17 04/12/17 History IR] Albuterol Inhaler [Proventil 2 puff INH Q4H PRN #1 inhaler 04/15/17 Rx Inhaler] Cefuroxime Tab [Ceftin] 250 mg PO BID #20 tablet 04/15/17 Rx Docusate Sodium Cap [Colace Cap] 100 mg PO BID capsule 04/15/17 Rx Mometasone 0.1% Cream [Elocon 0.1% 1 applic TOP BID #1 applic 04/15/17 Rx Cream] methylPREDNISolone DOSEPAK [Medrol 4 mg PO DIRECTED #1 pack 04/15/17 Rx Dosepak] Review of System - Review of System 12 point system: reviewed and no additional remarkable complaints except as stated - Review of System Constitutional: Present: as per HPI Head/Ears/Nose/Throat: Present: see HPI Respiratory: Present: as per HPI Cardiovascular: Present: as per HPI Gastrointestinal: Present: as per HPI Medical,Surgical,& Family Hx - Medical History Cardio: History of: Cardiac Dysrhythmia (L BBB, Coronary Stents), CAD, Hypertension Psychological: History of: Depression Neurology: No history of: Seizures Endocrine: History of: Dyslipidemia Respiratory: History of: Obstructive Sleep Apnea Gastrointestinal: History of: GERD Musculoskeletal: History of: Back/Neck Problems (Arthritis) No history of: Amputation - Surgical History Cardiac Surgeries: Sugical HX of: Cardiac Catheterization (stents), Cardiac Surgery (Two-vessel CABG) Thoracic Surgeries: Patient denies;: Organ Transplant, Lobectomy Neurologic Surgeries: Patient denies: Neurologic Surgery Abdominal Surgeries: Surgical HX of: Abdominal Surgery, Appendectomy Reproductive Surgeries: Patient denies;: Genitourinary Surgery - Family History Family History: Reports;: Family Heart Disease, Family Hypertension - Social History Smoking Status: Former smoker Frequency of Alcohol Use: None Type of Drug Use: None Exam Physical Examination: GENERAL: Well developed, well nourished white male in no acute distress. HEENT: Normocephalic. No trauma. Moist mucous membranes. EOMI. PERRLA. ENT NML NECK: Supple. No adenopathy. CARDIAC: Regular. No murmurs. Heart rate 98 CHEST: Scattered expiratory wheezes and rhonchi. No respiratory distress. O2 sat 94% ABDOMEN: Soft. Nontender. Active bowel sounds. EXTREMITIES: No trauma. Normal ROM. No pedal edema. SKIN: No diaphoresis. No rash. NEURO: Alert. Oriented 3. Motor, sensory, vibratory intact. No focal deficits. Vital Signs: Vital Signs Temperature 99.4 F 04/26/17 20:04 Pulse Rate 94 H 04/26/17 20:54 Respiratory Rate 24 04/26/17 20:54 Blood Pressure 143/72 04/26/17 20:04 O2 Sat by Pulse Oximetry 100 04/26/17 20:54 Course - Reevaluation(s) Reevaluation #1: Advised patient of new infiltrate on the right with associated pleural effusion. This would require hospitalization for further evaluation treatment. - Consultations Consultation #1: Discussed with Dr. Ma who will admit the patient for further evaluation and treatment for Dr. Jean Results - Labs CBC & BMP: 04/26/17 20:23 04/26/17 20:23 Labs: I reviewed the laboratory noted its relative normalcy excepting for significant reduction in hematocrit - Impressions EKG: Sinus rhythm at 98 with normal OK interval but intraventricular conduction delay. Borderline right axis deviation. Nonspecific ST changes. No acute injury pattern noted. - Diagnostic Findings Procedure: Chest x-ray: image reviewed by me, report reviewed by me (Status post median sternotomy with right pleural effusion noted) Disposition Clinical Impression: Recurrent pneumonia, Right pleural effusion, Recent CABG Case discussed with: patient, patient's family Disposition: Still a Patient Condition: Guarded Time of Disposition: 22:22
[2017-04-26 20:47] LABS: INR 1.2; PT Patient Result 12.9 SECS
[2017-04-26] MEDS ORDERED: TERBUTALINE 1 MG/1 ML VIAL SUBCUT ONE (20:52)
[2017-04-26] MEDS ORDERED: AZITHROMYCIN 500 MG VIAL IV ONE (20:52)
[2017-04-26] MEDS ORDERED: methylPREDNISolone SOD SUC 125 MG/2 ML VIAL ONE (20:53)
[2017-04-26] MEDS ORDERED: SODIUM CHLORIDE 0.9% 250 ML IV ONE (20:53)
[2017-04-26 20:56] LABS: Alanine Aminotransferase 55 U/L (16-61); Albumin 2.7 G/DL (3.4-5.0); Alkaline Phosphatase 65 U/L (45-117); Aspartate Amino Transferase 49 U/L (0-37); Blood Urea Nitrogen 23 MG/DL (7-18); Calcium 8.9 MG/DL (8.5-10.1); Glucose 115 MG/DL (74-106); Osmolality,Calculated 272.2 MOS/KG (273-304); Potassium 3.7 MMOL/L (3.5-5.1); Sodium 134 MMOL/L (136-145); Total Protein 7.2 G/DL (6.4-8.3); Troponin I Only 0.022 NG/ML (0.00-0.045)
--- NOTE | 2017-04-26 20:56 | XRay Report ---
2 view chest. Indication: Shortness of breath. Comparison: April 13, 2017. The heart is normal in size. Post median sternotomy. Scarring at the left lung base. There is worsening infiltrate and increasing pleural effusion at the right lung base. Bridging osteophytes are seen within the thoracic spine. Impression: Increasing infiltrate and pleural effusion at the right lung base. PROCEDURE INTERPRETED AT [facility] DEPARTMENT OF RADIOLOGY Final Report Signed by: Dr. Jeannette Carl
[2017-04-26] MEDS: TERBUTALINE 1 MG/1 ML VIAL SUBCUT SCH ×2 (21:10→21:55)
[2017-04-26 21:44] LABS: Apearance,Urine CLEAR (Clear); Bilirubin,Urine Negative (Negative); Blood, Urine Large mg/dL (Negative); Glucose,Urine (UA) Negative (Negative); Granular Casts,Urine 4 /LPF (0-1); Hyaline Casts,Urine 6 /LPF (0-3); Ketones,Urine Negative (Negative); Mucus,Urine Occasional /LPF (Occasional); Nitrite,Urine Negative (Negative); Protein,Urine 30 MG/DL; RBC,Urine 53 /HPF (0-4); Urine Color Yellow (Yellow); Urine Specific Gravity 1.013 (1.001-1.035); Urine Urobilinogen < 2.0 EU/DL (0.2-1.0); WBC,Urine 5 /HPF (0-6)
[2017-04-26] MEDS ORDERED: cefTRIAXone 1,000 MG in SODIUM CHLORIDE 0.9% 100 ML IV STA (21:48)
[2017-04-26] MEDS ORDERED: cefTRIAXone 1,000 MG VIAL ONE (21:58)
[2017-04-26] MEDS ORDERED: SODIUM CHLORIDE 0.9% 100 ML IV ONE (21:58)
[2017-04-26] MEDS ORDERED: ALBUTEROL/IPRATROPIUM 3 ML NEB RESP TX PRN (22:10)
[2017-04-26] MEDS ORDERED: ONDANSETRON 4 MG/2 ML VIAL IV PRN (22:10)
[2017-04-27] MEDS: methylPREDNISolone SOD SUC 125 MG/2 ML VIAL IV SCH ×2 (04:30→16:13)
--- NOTE | 2017-04-27 05:59 | EKG Report ---
Stationary ECG Study [facility] ER Test Date: 04/26/2017 8:18:39 PM Pat Name: SATNAM FISHER Department: Room: 283 Gender: M Research Dietitian: : 1935 Requested by: Con Abdi Order Number: [id number] Reading MD: ALVAREZ HODGE Intervals Friend Rate: 98 P: 73 MI: 149 QRS: 94 QRSD: 141 T: -88 QT: 397 QTc: 452 Interpretive Statements SINUS RHYTHM BORDERLINE RIGHT AXIS DEVIATION LEFT BUNDLE BRANCH BLOCK Electronically Signed On 04-27-17 16:35:50 CDT by ALVAREZ HODGE [email or web address]
--- NOTE | 2017-04-27 07:21 | XRay Report ---
2 view chest. Indication: Pneumonia. Comparison: April 26, 2017. The heart is normal in size. Post median sternotomy. The pulmonary vasculature is normal. Slight blunting of the left costophrenic angle probably representing a small amount of pleural effusion. Increasing infiltrate and pleural effusion at the right lung base. Bridging osteophytes within the thoracic spine. Degenerative changes of both shoulders. Impression: Increasing infiltrate and pleural effusion at the right base. Suspected small left pleural effusion. PROCEDURE INTERPRETED AT [facility] DEPARTMENT OF RADIOLOGY Final Report Signed by: Dr. Jeannette Carl
[2017-04-27 08:03] LABS: Hematocrit 34.6 VOL% (42.0-52.0); Hemoglobin 11.3 GM/DL (14.0-18.0); Immature Granulocytes % 0.4 %; Immature Granulocytes Absolute 0.03 #; Lymphocytes # 0.5 10*3/uL (1.4-4.0); Lymphocytes % 7.1 % (21.2-54.2); Mean Corpuscular HGB Conc 32.7 GM/DL (32-36); Mean Corpuscular Hemoglobin 27 PG (27-34); Mean Corpuscular Volume 82.8 FL (87-102); Mean Platelet Volume 10.1 FL (9.6-12.0); Monocytes # 0.1 10*3/uL (0.11-0.8); Neutrophils # 6.6 10*3/uL (1.4-7.4); Neutrophils % 91.5 % (38.7-73.9); Platelet Count 403 T/CUMM (130-400); Red Blood Count 4.18 MC/CUMM (3.8-5.5); Red Cell Distribution Width 17.2 % (9.3-17.3); White Blood Count 7.2 T/CUMM (4-12)
[2017-04-27 08:48] LABS: Albumin 2.7 G/DL (3.4-5.0); Bilirubin,Total 0.6 MG/DL (0.2-1.0); Calcium 9.3 MG/DL (8.5-10.1); Osmolality,Calculated 281.7 MOS/KG (273-304); Potassium 3.7 MMOL/L (3.5-5.1); Total Protein 7.1 G/DL (6.4-8.3)
[2017-04-27] MEDS ORDERED: CITALOPRAM 20 MG TABLET PO SCH (09:00)
[2017-04-27 09:07] LABS: Band Neutrophils 1 % (0-10); Burr Cells 1+; Lymphocytes 7 % (20-55); Platelet Estimate Adequate; Polychromasia Slight; Segmented Neutrophils 89 % (50-85); Total Cells Counted 100
[2017-04-27] MEDS: CARVEDILOL 3.125 MG TABLET PO SCH ×2 (09:09→20:36)
[2017-04-27] MEDS: ASPIRIN 325 MG TABLET PO SCH (09:09)
[2017-04-27] MEDS: PANTOPRAZOLE 40 MG TABLET PO SCH (09:09)
[2017-04-27] MEDS ORDERED: ACETAMINOPHEN 325 MG TABLET PO PRN (17:20)
[2017-04-27] MEDS ORDERED: ALBUTEROL 2.5 MG/3 ML NEB RESP TX PRN (17:39)
[2017-04-27] MEDS ORDERED: ALPRAZolam 0.25 MG TABLET PO PRN (17:39)
--- NOTE | 2017-04-27 18:02 | Family Practice History&Phys ---
Assessment and Plan (1) right lower lobe infiltrate Status: Acute Assessment and plan: Patient was started on empiric antibiotics in the emergency room. Will consult pulmonary for assistance. Patient has had some pleural effusion noted every since his coronary artery bypass surgery but apparently this is worse. His dyspnea is probably multifactorial Current Visit: No (2) Status post coronary artery bypass graft Status: Chronic Assessment and plan: Patient had two-vessel coronary artery bypass done in January of this year. He has had a mental status change and significant decline since that time. Current Visit: No (3) coronary artery disease with stents Status: Chronic Current Visit: No (4) Recent mental status change Status: Acute Assessment and plan: Patient has had a mental status change since his coronary bypass graft. He has always been a very energetic outgoing person but now is very reserved and appears depressed. Family states that he is very quiet and is actually a different person. All family members are very concerned. He continues to have a progressive decline. I plan to increase his antidepressants and will obtain a cardiology and pulmonary consultation. Feels the symptoms are multifactorial Current Visit: No (5) Generalized weakness Status: Acute Assessment and plan: Patient is having progressive weakness. States he can only ambulate short distances without dyspnea and weakness. Family states that he basically wants to sit in a chair. This is a total change for this patient. Current Visit: No (6) Obstructive sleep apnea Status: Chronic Assessment and plan: Stable but not sure patient has been using CPAP Current Visit: Yes (7) Hypertension Status: Chronic Assessment and plan: Stable on present medication Current Visit: No Qualifiers: Hypertension type: essential hypertension Qualified Code(s): I10 - Essential (primary) hypertension (8) Hypercholesterolemia Status: Chronic Assessment and plan: Stable with present medication Current Visit: No History of Present Illness Chief complaint: Dyspnea with exertion and weakness History of present illness: Mr. Lazo is a 82 year old male Patient is an 82-year-old white male well-known to me who has had a progressive decline over the last several weeks. I have seen in the clinic on several occasions as well as he was hospitalized in April with weakness and possible pneumonia. Family has noted a total mental status change since his coronary bypass graft in January of this year. He has subsequently become weaker with poor appetite. Patient states that he has dyspnea with minimal exertion. Patient has always been very outgoing and active but now does want to leave the house. He has recently redeveloped a cough with chest wall pain. I did a rather extensive workup during his March admission. Patient had a head CT, MRI of the brain, MRA of the brain, duplex carotids, and numerous other studies which were unremarkable. I started the patient on Celexa thinking that possibly he was having depression. Patient and his have seen no change. I have treated this gentleman for many years and there is a significant change in his mental status overall. Family feels that he has given up. basically states he does not feel like doing anything. I have switched several medications with no response. The patient presented to the emergency room last p.m. complaining of cough, shortness of breath, and chest wall pain. Patient states he does not feel like getting out of bed. He was seen by the emergency room physician and noted to have a right lower lobe pleural effusion. In view of overall history he is being admitted for further evaluation and therapy. Most of the above symptoms have been present since his coronary artery bypass graft. His dyspnea symptoms have been more acute. Home Medications Medication Instructions Recorded Confirmed Type ALPRAZolam [Xanax] 0.25 mg PO TID PRN 04/26/17 04/26/17 History Acetaminophen Tab [Tylenol Tab] 650 mg PO Q4H PRN 04/26/17 04/26/17 History Aspirin [Ecotrin] 81 mg PO DAILY 04/26/17 04/26/17 History Atorvastatin [Lipitor] 40 mg PO BEDTIME 04/26/17 04/26/17 History Carvedilol [Coreg] 3.125 mg PO BID 04/26/17 04/26/17 History Cilostazol [Pletal] 50 mg PO BID 04/26/17 04/26/17 History Citalopram [CeleXA] 20 mg PO BEDTIME 04/26/17 04/26/17 History Ezetimibe [Zetia] 10 mg PO DAILY 04/26/17 04/26/17 History Furosemide Tab [Lasix Tab] 40 mg PO DAILY 04/26/17 04/26/17 History Lisinopril 20 mg PO DAILY 04/26/17 04/26/17 History Loratadine Tab [Claritin Tab] 10 mg PO DAILY 04/26/17 04/26/17 History Pantoprazole Tab [Protonix Tab] 40 mg PO BID 04/26/17 04/26/17 History amLODIPine [Norvasc] 2.5 mg PO BEDTIME 04/26/17 04/26/17 History diphenhydrAMINE CAP [Benadryl Cap] 50 mg PO BEDTIME PRN 04/26/17 04/26/17 History Albuterol Sulfate [Ventolin HFA] 2 puff INH Q4H PRN 04/27/17 04/27/17 History Phenylephrine/Guaifenesin [Deconex 1 tablet PO QID PRN 04/27/17 04/27/17 History IR] Allergies Allergy/AdvReac Type Severity Reaction Status Date / Time No Known Allergies Allergy Verified 01/24/17 07:03 Medical,Surgical,& Family Hx - Medical History Cardio: History of: Cardiac Dysrhythmia (L BBB, Coronary Stents), CAD, Hypertension Psychological: History of: Depression Neurology: No history of: Seizures Endocrine: History of: Dyslipidemia Respiratory: History of: Obstructive Sleep Apnea Gastrointestinal: History of: GERD Musculoskeletal: History of: Back/Neck Problems (Arthritis) No history of: Amputation - Surgical History Cardiac Surgeries: Sugical HX of: Cardiac Catheterization (stents), Cardiac Surgery (Two-vessel CABG) Thoracic Surgeries: Patient denies;: Organ Transplant, Lobectomy Neurologic Surgeries: Patient denies: Neurologic Surgery Abdominal Surgeries: Surgical HX of: Abdominal Surgery, Appendectomy Reproductive Surgeries: Patient denies;: Genitourinary Surgery - Family History Family History: Reports;: Family Heart Disease, Family Hypertension - Social History Smoking Status: Former smoker Frequency of Alcohol Use: None Type of Drug Use: None Marital Status: Lives With:: Spouse Functional capacity: independent ambulation Exam - Constitutional Vitals: Period Temp Pulse Resp BP Sys/Reed Pulse Ox Last 24 Hr 97.4 F-99.4 F 87-103 16-24 129-150/64-76 92-100 General appearance: mild distress - Head Head exam: Present: normal inspection - Eye Pupils: Present: JOHN - ENT ENT exam: Present: normal exam - Neck Neck exam: Present: normal inspection - Respiratory Respiratory exam: Present: clear to auscultation bilaterally - Cardiovascular Cardiovascular exam: Present: regular rate and rhythm - GI/Abdominal GI/Abdominal exam: Present: normal bowel sounds, soft - Extremities Exam Extremities exam: Present: normal inspection - Back Exam Back exam: Present: normal inspection - Neurological Exam Neurological exam: Present: alert, oriented X3 - Psychiatric Psychiatric exam: Present: depressed, flat affect - Skin Skin exam: Present: normal color Results - Labs CBC & BMP: 04/27/17 07:20 04/27/17 07:20
[2017-04-27] MEDS: methylPREDNISolone SOD SUC 40 MG/1 ML VIAL IV SCH (18:23)
[2017-04-27] MEDS: EZETIMIBE 10 MG TABLET PO SCH (20:36)
[2017-04-27] MEDS: CITALOPRAM 40 MG TABLET PO SCH (20:36)
[2017-04-27] MEDS: CILOSTAZOL 50 MG TABLET PO SCH (20:36)
[2017-04-27] MEDS: ATORVASTATIN 40 MG TABLET PO SCH (20:36)
[2017-04-27] MEDS: DOCUSATE SODIUM 100 MG CAPSULE PO SCH (20:36)
[2017-04-27] MEDS: amLODIPine 2.5 MG TABLET PO SCH (20:37)
[2017-04-27] MEDS: cefTRIAXone 2,000 MG in SODIUM CHLORIDE 0.9% 100 ML IV SCH ×2 (20:37→22:25)
[2017-04-27] MEDS: DEXTROSE 5% NACL 0.45% 1,000 ML IV SCH (20:37)
[2017-04-27] MEDS ORDERED: ATORVASTATIN 40 MG TABLET PO SCH (21:00)
[2017-04-27] MEDS ORDERED: CARVEDILOL 3.125 MG TABLET PO SCH (21:00)
[2017-04-27] MEDS: AZITHROMYCIN INJ 500 MG in SODIUM CHLORIDE 0.9% 250 ML IV SCH (22:23)
[2017-04-28] MEDS: methylPREDNISolone SOD SUC 40 MG/1 ML VIAL IV SCH ×3 (03:06→17:52)
[2017-04-28 04:46] LABS: Hemoglobin 9.6 GM/DL (14.0-18.0); Immature Granulocytes % 0.8 %; Lymphocytes # 0.8 10*3/uL (1.4-4.0); Lymphocytes % 2.9 % (21.2-54.2); Mean Corpuscular HGB Conc 33.1 GM/DL (32-36); Mean Corpuscular Hemoglobin 27 PG (27-34); Mean Platelet Volume 10.3 FL (9.6-12.0); Monocytes # 0.6 10*3/uL (0.11-0.8); Monocytes % 2.3 % (1.7-12.7); Neutrophils # 23.9 10*3/uL (1.4-7.4); Platelet Count 368 T/CUMM (130-400); Red Blood Count 3.58 MC/CUMM (3.8-5.5); Red Cell Distribution Width 17.1 % (9.3-17.3); White Blood Count 25.5 T/CUMM (4-12)
[2017-04-28 05:33] LABS: Albumin 2.4 G/DL (3.4-5.0); Bilirubin,Total 0.5 MG/DL (0.2-1.0); Calcium 8.9 MG/DL (8.5-10.1); Osmolality,Calculated 284.4 MOS/KG (273-304); Potassium 3.8 MMOL/L (3.5-5.1); Risk Ratio 2.24; Total Protein 6.2 G/DL (6.4-8.3); VLDL CHOLESTEROL 8.4 MG/DL
[2017-04-28 05:51] LABS: Band Neutrophils 3 % (0-10); Hypochromasia 1+; Lymphocytes 2 % (20-55); Microcytosis 1+; Ovalocytes Few; Platelet Estimate Normal; Segmented Neutrophils 93 % (50-85); Total Cells Counted 100
[2017-04-28] MEDS: DEXTROSE 5% NACL 0.45% 1,000 ML IV SCH ×2 (05:57→23:24)
[2017-04-28 05:59] LABS: Free T4 (Free Thyroxine) 1.12 NG/DL (0.76-1.46); Thyroid Stimulating Hormone 0.398 uIU/ml (0.358-3.74)
--- NOTE | 2017-04-28 07:19 | Pulmonology Consult Note ---
Assessment and Plan (1) Pleural effusion, right Status: Acute Assessment and plan: Effusion is relatively small. However he has white count of 25,000. Essentially normal BNP. This may be post pericardial. May be parapneumonic. I will get a right lateral decubitus film and see if there is enough fluid to tap. Current Visit: Yes (2) Status post coronary artery bypass graft Status: Chronic Assessment and plan: No active angina. Current Visit: No (3) right lower lobe infiltrate Status: Acute Assessment and plan: Difficult to tell whether this represents pneumonia or compression of the lower lobe. I agree with empiric antibiotics. Current Visit: No (4) Obstructive sleep apnea Status: Chronic Assessment and plan: Continuing CPAP at night. Current Visit: Yes History of Present Illness Chief complaint: Shortness of breath History of present illness: Mr. Lazo is a 82 year old male who had cardiac surgery with coronary bypass about 3 months ago. He has been in and out of the hospital with shortness of breath and pneumonia. He does not have any known previous lung problems. Apparently he has been a little bit less active since his surgery and his family feels his personality has changed. He has a history of hypertension obstructive sleep apnea as well as the chronic coronary disease. Brain scans have been negative thus far as any strokes or concern. The patient denies fever or chills. He is not really coughing up anything. No hemoptysis. Does have some mild right pleuritic pain. Home Medications Medication Instructions Recorded Confirmed Type ALPRAZolam [Xanax] 0.25 mg PO TID PRN 04/26/17 04/26/17 History Acetaminophen Tab [Tylenol Tab] 650 mg PO Q4H PRN 04/26/17 04/26/17 History Aspirin [Ecotrin] 81 mg PO DAILY 04/26/17 04/26/17 History Atorvastatin [Lipitor] 40 mg PO BEDTIME 04/26/17 04/26/17 History Carvedilol [Coreg] 3.125 mg PO BID 04/26/17 04/26/17 History Cilostazol [Pletal] 50 mg PO BID 04/26/17 04/26/17 History Citalopram [CeleXA] 20 mg PO BEDTIME 04/26/17 04/26/17 History Ezetimibe [Zetia] 10 mg PO DAILY 04/26/17 04/26/17 History Furosemide Tab [Lasix Tab] 40 mg PO DAILY 04/26/17 04/26/17 History Lisinopril 20 mg PO DAILY 04/26/17 04/26/17 History Loratadine Tab [Claritin Tab] 10 mg PO DAILY 04/26/17 04/26/17 History Pantoprazole Tab [Protonix Tab] 40 mg PO BID 04/26/17 04/26/17 History amLODIPine [Norvasc] 2.5 mg PO BEDTIME 04/26/17 04/26/17 History diphenhydrAMINE CAP [Benadryl Cap] 50 mg PO BEDTIME PRN 04/26/17 04/26/17 History Albuterol Sulfate [Ventolin HFA] 2 puff INH Q4H PRN 04/27/17 04/27/17 History Phenylephrine/Guaifenesin [Deconex 1 tablet PO QID PRN 04/27/17 04/27/17 History IR] Allergies Allergy/AdvReac Type Severity Reaction Status Date / Time No Known Allergies Allergy Verified 01/24/17 07:03 12 point system: reviewed and no additional remarkable complaints except as stated - Constitutional Constitutional: Present: fatigue - Cardiovascular Cardiovascular: Present: dyspnea, dyspnea on exertion - Respiratory Respiratory: Present: cough, dyspnea, dyspnea on exertion Exam (Pulmonay) H&P - Constitutional Vitals: Period Temp Pulse Resp BP Sys/Reed Pulse Ox Last 24 Hr 97.4 F-98.2 F 64-91 18-20 128-150/64-76 93-99 Exam: Vital signs are normal. Afebrile. Pupils react to light. Throat is clear. Neck supple no bruits. Chest reveals slightly decreased breath sounds at the right base and dullness there. Heart normal rate and rhythm no murmurs no rubs no gallops. Abdomen soft nontender no masses. Extremities no clubbing cyanosis edema. Calves nontender. Medical,Surgical,& Family Hx - Medical History Cardio: History of: Cardiac Dysrhythmia (L BBB, Coronary Stents), CAD, Hypertension Psychological: History of: Depression Neurology: No history of: Seizures Endocrine: History of: Dyslipidemia Respiratory: History of: Obstructive Sleep Apnea Gastrointestinal: History of: GERD Musculoskeletal: History of: Back/Neck Problems (Arthritis) No history of: Amputation - Surgical History Cardiac Surgeries: Sugical HX of: Cardiac Catheterization (stents), Cardiac Surgery (Two-vessel CABG) Thoracic Surgeries: Patient denies;: Organ Transplant, Lobectomy Neurologic Surgeries: Patient denies: Neurologic Surgery Abdominal Surgeries: Surgical HX of: Abdominal Surgery, Appendectomy Reproductive Surgeries: Patient denies;: Genitourinary Surgery - Family History Family History: Reports;: Family Heart Disease, Family Hypertension - Social History Smoking Status: Former smoker Frequency of Alcohol Use: None Type of Drug Use: None Results - Labs CBC & BMP: 04/28/17 04:28 04/28/17 04:28 Lab Results: I have reviewed the past 24 hour labs - Diagnostic Findings Procedure: Chest x-ray: image reviewed by me (Small right pleural effusion. Questionable infiltrate right base.)
--- NOTE | 2017-04-28 08:11 | XRay Report ---
XR chest lateral decubitus RT Indication: Right pleural effusion. Chest 1 view: Right lateral decubitus view of the chest shows a relatively small right pleural effusion layering dependently. Some of the fluid persists in the subpulmonic space however. Impression: Small free-flowing right pleural effusion with some fluid remaining in the subpulmonic region. PROCEDURE INTERPRETED AT [facility] DEPARTMENT OF RADIOLOGY Final Report Signed by: Luis Aggarwal M.D.
--- NOTE | 2017-04-28 08:12 | XRay Report ---
XR chest 2V Indication: Shortness of breath. Chest 2 views: Very small right and tiny left pleural effusions are present. There is some degree of scarring the central lungs and lung bases. No discrete infiltrates are seen. Heart size is normal. Median sternotomy sutures are present. Impression: Very small right and tiny left pleural effusions. Findings are stable from 2 days earlier. PROCEDURE INTERPRETED AT [facility] DEPARTMENT OF RADIOLOGY Final Report Signed by: Luis Aggarwal M.D.
[2017-04-28] MEDS: CILOSTAZOL 50 MG TABLET PO SCH ×2 (08:49→21:27)
[2017-04-28] MEDS: CARVEDILOL 3.125 MG TABLET PO SCH ×2 (08:50→21:28)
[2017-04-28] MEDS: LISINOPRIL 20 MG TABLET PO SCH (08:50)
[2017-04-28] MEDS: PANTOPRAZOLE 40 MG TABLET PO SCH (08:50)
[2017-04-28] MEDS: FUROSEMIDE 40 MG TABLET PO SCH (08:50)
[2017-04-28] MEDS: ASPIRIN 325 MG TABLET PO SCH (08:50)
[2017-04-28] MEDS: LORATADINE 10 MG TABLET PO SCH (08:50)
[2017-04-28] MEDS: DOCUSATE SODIUM 100 MG CAPSULE PO SCH ×2 (08:51→21:28)
[2017-04-28] MEDS ORDERED: ASPIRIN EC 81 MG TABLET PO SCH (09:00)
[2017-04-28] MEDS ORDERED: EZETIMIBE 10 MG TABLET PO SCH (09:00)
--- NOTE | 2017-04-28 10:53 | Cardiology Progress Note ---
Assessment and Plan (1) Pleural effusion, right Status: Acute Current Visit: Yes (2) Generalized weakness Status: Acute Current Visit: No (3) right lower lobe infiltrate Status: Acute Assessment and plan: There is some question as to whether this may be aspiration versus a minimally acquired pneumonia with parapneumonic effusion. I think this is less likely heart failure related as a BNP is below 150. I am going to check an echocardiogram to be certain there is no evidence of any problem with pericardial fluid or change in LV function. Current Visit: No (4) Diabetes Status: Chronic Current Visit: No Qualifiers: Diabetes mellitus type: type 2 Diabetes mellitus complication status: without complication Diabetes mellitus long term acute care registered nurse insulin use: without [facility] use Qualified Code(s): E11.9 - Type 2 diabetes mellitus without complications (5) Hypercholesterolemia Status: Chronic Current Visit: No (6) Hypertension Status: Chronic Current Visit: No Qualifiers: Hypertension type: essential hypertension Qualified Code(s): I10 - Essential (primary) hypertension (7) Status post coronary artery bypass graft Status: Chronic Current Visit: No (8) coronary artery disease with stents Status: Chronic Current Visit: No (9) Post pericardiotomy syndrome Status: Acute Assessment and plan: I think most of what he is describing and dealing with fits this diagnosis. Anti-inflammatory management is what we need to pursue if he can tolerate that and I will review his medications. Current Visit: Yes Cardiology - PN: Subj Interval history: This is an 82-year-old man who underwent two-vessel coronary bypass grafting with an DANIEL graft which was a free graft to the diagonal and a vein graft to the second marginal. Ejection fraction was in the 55% range. This was in January 2017. He has had multiple admissions since that time related to fluid overload and dyspnea. He apparently has had chest x-ray findings are consistent with post pericardiotomy syndrome. He has had fluid collections which have been drained in the past. He has a poor appetite in the family says it is personality has changed since surgery. He does not complain of anginal chest pain or problems related to orthopnea or PND. His BNP is suggesting a noncardiac cause for most of his dyspnea. I was asked to see and evaluate post surgical dyspnea and failure to thrive. Exam (Progress Note) - Constitutional Vitals: Period Temp Pulse Resp BP Sys/Reed Pulse Ox Last 24 Hr 97.3 F-98.2 F 64-95 18-20 128-148/64-76 92-99 Exam: Physical examination: General: The patient is awake and alert and oriented -3. Mood and affect are normal. HEENT: Normocephalic, sclera are clear there are no lid xanthelasmas noted. Oral mucosa is free of cyanosis or pallor. Neck: The neck is supple without JVD. Carotid upstrokes are normal volume and amplitude. There is no audible bruit. There is no palpable thyroid. Trachea is midline. Chest: Lungs: The patient is comfortable at rest without intercostal retractions or abdominal breathing. There are no adventitial sounds rales rubs rhonchi or wheezes noted. There are decreased breath sounds at the right base. Cardiovascular: The PMI is nondisplaced. No palpable thrill S3 or S4. There is a regular rate and rhythm with no murmur rub or gallop noted. Dorsalis pedis posterior tibial are 1+ and equal and femoral pulses are 2+ and equal bilaterally. Abdomen: Abdomen is soft and nontender with normal active bowel sounds. There is no palpable mass or organomegaly noted. There is no midline bruit. Extremities exam: There is no cyanosis clubbing or edema. Skin: Skin is warm and dry without ecchymosis or urticaria or skin rash. There are no palpable nodules. Musculoskeletal: There is no kyphosis or scoliosis noted. Result/EKG - Labs CBC & BMP: 04/28/17 04:28 04/28/17 04:28 Labs: Laboratory Results - last 24 hr 04/28/17 04/28/17 04/28/17 04:28 04:28 04:28 WBC 25.5 H D RBC 3.58 L Hgb 9.6 L Hct 29.0 L MCV 81.0 L MCH 27 MCHC 33.1 RDW 17.1 Plt Count 368 MPV 10.3 Neut % (Auto) 94.0 H Lymph % (Auto) 2.9 L Young % (Auto) 2.3 Eos % (Auto) 0.0 Baso % (Auto) 0.0 Neut # (Auto) 23.9 H Lymph # (Auto) 0.8 L Young # (Auto) 0.6 Eos # (Auto) 0.0 Baso # (Auto) 0.0 Total Counted 100 Immature Gran % 0.8 Nucleated RBC % 0.0 Immature Gran # 0.20 Segmented Neutrophils 93 H Band Neutrophils 3 Lymphocytes 2 L Monocytes 2 Nucleated RBCs # 0.00 Platelet Estimate Normal Hypochromasia 1+ Microcytosis 1+ Ovalocytes Few ESR Westergren 104 H Sodium 140 Potassium 3.8 Chloride 105 Carbon Dioxide 24 Anion Gap 14.8 BUN 25 H Creatinine 1.00 GFR Calculation 75 BUN/Creatinine Ratio 25.00 H Glucose 131 H Calculated Osmolality 284.4 Calcium 8.9 Magnesium 2.0 Ferritin Total Bilirubin 0.50 AST 54 H ALT 67 H Alkaline Phosphatase 58 C-Reactive Protein Total Protein 6.2 L Albumin 2.4 L Globulin 3.8 H Albumin/Globulin Ratio 0.6 L Triglycerides 42 Cholesterol 101 LDL Cholesterol 42.0 VLDL Cholesterol 8.4 HDL Cholesterol 45 Heart Disease Risk Ratio 2.24 Free T4 TSH 3rd Generation 04/28/17 04:28 WBC RBC Hgb Hct MCV MCH MCHC RDW Plt Count MPV Neut % (Auto) Lymph % (Auto) Young % (Auto) Eos % (Auto) Baso % (Auto) Neut # (Auto) Lymph # (Auto) Young # (Auto) Eos # (Auto) Baso # (Auto) Total Counted Immature Gran % Nucleated RBC % Immature Gran # Segmented Neutrophils Band Neutrophils Lymphocytes Monocytes Nucleated RBCs # Platelet Estimate Hypochromasia Microcytosis Ovalocytes ESR Westergren Sodium Potassium Chloride Carbon Dioxide Anion Gap BUN Creatinine GFR Calculation BUN/Creatinine Ratio Glucose Calculated Osmolality Calcium Magnesium Ferritin 403.0 H Total Bilirubin AST ALT Alkaline Phosphatase C-Reactive Protein 8.29 H Total Protein Albumin Globulin Albumin/Globulin Ratio Triglycerides Cholesterol LDL Cholesterol VLDL Cholesterol HDL Cholesterol Heart Disease Risk Ratio Free T4 1.12 TSH 3rd Generation 0.398 - EKG EKG results: interpreted by me (EKG shows a sinus rhythm chronic left bundle branch block)
--- NOTE | 2017-04-28 13:56 | Family Practice Progress Note ---
Family Practice - PN: Subj Interval history: Patient was laying in bed with the blinds closed on entering the room. Still complaining of some pleuritic type chest pain. Patient states that he did well when he ambulated in [place] today as long as he was on oxygen. Patient signs and symptoms meet the criteria for post pericardiotomy syndrome. He has pleuritic chest pain, pleural effusion, C-reactive protein significantly elevated at 8.2 with a sedimentation rate 104. He is WBC was elevated this a.m. but patient was started on steroids yesterday. Cardiac echo is pending. I am going to start him on empiric colchicine therapy. I appreciate both pulmonary and cardiology input. We will continue present evaluation and treatment. Exam (Progress Note) - Constitutional Vitals: Period Temp Pulse Resp BP Sys/Reed Pulse Ox Last 24 Hr 97.3 F-98.2 F 64-95 18-20 102-148/51-76 92-99 Results - Labs CBC & BMP: 04/28/17 04:28 04/28/17 04:28 Assessment and Plan (1) right lower lobe infiltrate Status: Acute Assessment and plan: Patient was started on empiric antibiotics in the emergency room. Will consult pulmonary for assistance. Patient has had some pleural effusion noted every since his coronary artery bypass surgery but apparently this is worse. His dyspnea is probably multifactorial Current Visit: No (2) Status post coronary artery bypass graft Status: Chronic Assessment and plan: Patient had two-vessel coronary artery bypass done in January of this year. He has had a mental status change and significant decline since that time. Current Visit: No (3) coronary artery disease with stents Status: Chronic Current Visit: No (4) Recent mental status change Status: Acute Assessment and plan: Patient has had a mental status change since his coronary bypass graft. He has always been a very energetic outgoing person but now is very reserved and appears depressed. Family states that he is very quiet and is actually a different person. All family members are very concerned. He continues to have a progressive decline. I plan to increase his antidepressants and will obtain a cardiology and pulmonary consultation. Feels the symptoms are multifactorial Current Visit: No (5) Generalized weakness Status: Acute Assessment and plan: Patient is having progressive weakness. States he can only ambulate short distances without dyspnea and weakness. Family states that he basically wants to sit in a chair. This is a total change for this patient. Current Visit: No (6) Obstructive sleep apnea Status: Chronic Assessment and plan: Stable but not sure patient has been using CPAP Current Visit: Yes (7) Hypertension Status: Chronic Assessment and plan: Stable on present medication Current Visit: No Qualifiers: Hypertension type: essential hypertension Qualified Code(s): I10 - Essential (primary) hypertension (8) Hypercholesterolemia Status: Chronic Assessment and plan: Stable with present medication Current Visit: No
[2017-04-28] MEDS: AZITHROMYCIN INJ 500 MG in SODIUM CHLORIDE 0.9% 250 ML IV SCH (21:25)
[2017-04-28] MEDS: CITALOPRAM 40 MG TABLET PO SCH (21:27)
[2017-04-28] MEDS: COLCHICINE 0.6 MG TABLET PO SCH (21:27)
[2017-04-28] MEDS: ZALEPLON 5 MG CAPSULE PO PRN (21:28)
[2017-04-28] MEDS: ATORVASTATIN 40 MG TABLET PO SCH (21:28)
[2017-04-28] MEDS: amLODIPine 2.5 MG TABLET PO SCH (21:28)
[2017-04-28] MEDS: EZETIMIBE 10 MG TABLET PO SCH (21:28)
[2017-04-28] MEDS: cefTRIAXone 2,000 MG in SODIUM CHLORIDE 0.9% 100 ML IV SCH (23:24)
[2017-04-29] MEDS: methylPREDNISolone SOD SUC 40 MG/1 ML VIAL IV SCH ×3 (03:10→18:23)
--- NOTE | 2017-04-29 08:26 | Pulmonology Progress Note ---
Pulmonary - PN: Subj Interval history: 82-year-old man that had recent heart surgery. He has a right pleural effusion. Elevated white count. The fluid does layer enough to tap although it is not a large effusion. Will do right thoracentesis this morning. Exam (Progress Note) - Constitutional Vitals: Period Temp Pulse Resp BP Sys/Reed Pulse Ox Last 24 Hr 97.6 F-98.6 F 75-80 16-20 102-143/51-67 92-97 Exam: Patient's alert oriented vital signs normal. Pupils react to light. Throat is clear. Neck supple no bruits. Chest reveals some dullness at the right base and a few crackles clear. Heart normal rate and rhythm no murmurs. Abdomen soft nontender no masses. Extremities no clubbing cyanosis edema calves nontender. Results - Labs CBC & BMP: 04/28/17 04:28 04/28/17 04:28 Lab Results: I have reviewed the past 24 hour labs - Diagnostic Findings Procedure: Chest x-ray: image reviewed by me (Right lateral decubitus film shows enough fluid to tap.) Assessment and Plan (1) Pleural effusion, right Status: Acute Assessment and plan: Effusion is relatively small. However he has white count of 25,000. Essentially normal BNP. This may be post pericardial. May be parapneumonic. I will get a right lateral decubitus film and see if there is enough fluid to tap. 04/29/2017 pleural effusion is relatively small but he has an elevated white count. We will tap this. Current Visit: Yes (2) Status post coronary artery bypass graft Status: Chronic Assessment and plan: No active angina. 04/29/2017 no symptoms of angina. Current Visit: No (3) right lower lobe infiltrate Status: Acute Assessment and plan: Difficult to tell whether this represents pneumonia or compression of the lower lobe. I agree with empiric antibiotics. 04/29/2017 on empiric antibiotics. Current Visit: No (4) Obstructive sleep apnea Status: Chronic Assessment and plan: Continuing CPAP at night. Current Visit: Yes
--- NOTE | 2017-04-29 08:27 | ECHO Report ---
Albert Lazo Exam Date: 04/28/2017 11:39 Referring Physician: Technologist: Shannon Arambula RDCS Age: 82 Ht (in): 68 Wt (lb): 159 Gender: M Exam Location: [facility] ([place]) Echo stents, PENG, Hypercholesterolemia, Pleural effusion, not elsewhere classified, Weakness, Essential (primary) hypertension, Dyspnea, unspecified, Right lower lobe infiltrate BP: 148 / 75 HR: 75 Rhythm: Sinus Technical Quality: IMPRESSIONS Normal left ventricular cavity size. Mild left ventricular hypertrophy. Diffuse LV hypokinesis noted with paradoxical septal motion possibly related to the patient's bundle branch block. Ejection fraction is in the 35-40% range. There is distal septal and apical hypo-/akinesis The right ventricle is normal in size and function. The right atrium is mildly enlarged. The left atrium is mildly enlarged. Mildly thickened mitral valve. Mild-moderate mitral valve regurgitation. Mild aortic valve calcification. No aortic valve stenosis. [id number] aortic valve regurgitation. Morphologically normal tricuspid valve. Mild tricuspid valve regurgitation. Tricuspid regurgitation velocities suggest a PAP of 44 mmHg. Morphologically normal pulmonic valve. Mild pulmonary valve regurgitation. Normal pericardium without effusion. Normal ascending aorta dimension. MEASUREMENTS (Male / Female) Normal Values 2D ECHO LV Diastolic Diameter PLAX 4.5 cm 4.2 - 5.9 / 3.9 - 5.3 cm LV Systolic Diameter PLAX 3.5 cm LV Fractional Shortening PLAX 22.2 % IVS Diastolic Thickness 1.3 cm 0.6 - 1.0 / 0.6 - 0.9 cm LVPW Diastolic Thickness 1.3 cm 0.6 - 1.0 / 0.6 - 0.9 cm RV Internal Dim ED PLAX 2.3 cm Aortic Root Diameter 2.9 cm LA Systolic Diameter LX 4.4 cm 3.0 - 4.0 / 2.7 - 3.8 cm DOPPLER TR Peak Velocity 290.0 cm/s TR Peak Gradient 33.6 mmHg FINDINGS Left Ventricle Normal left ventricular cavity size. Mild left ventricular hypertrophy. Diffuse LV hypokinesis noted with paradoxical septal motion possibly related to the patient's bundle branch block. Ejection fraction is in the 35-40% range. There is distal septal and apical hypo-/akinesis Right Ventricle The right ventricle is normal in size and function. Right Atrium The right atrium is mildly enlarged. Left Atrium The left atrium is mildly enlarged. Mitral Valve Mildly thickened mitral valve. Mild-moderate mitral valve regurgitation. Aortic Valve Mild aortic valve calcification. No aortic valve stenosis. Mild-to- moderate aortic valve regurgitation. Tricuspid Valve Morphologically normal tricuspid valve. Mild tricuspid valve regurgitation. Tricuspid regurgitation velocities suggest a PAP of 44 mmHg. Pulmonic Valve Morphologically normal pulmonic valve. Mild pulmonary valve regurgitation. Pericardium Normal pericardium without effusion. Aorta Normal ascending aorta dimension. Kev Prado MD (Electronically Signed) Final Date: 29 April 2017 08:25
--- NOTE | 2017-04-29 09:02 | Operative Note ---
Date of procedure: 04/29/17 (Right thoracentesis) Pre-op diagnosis: Right pleural effusion with leukocytosis Post-op diagnosis: same (Serosanguineous pleural effusion with removal of 800 mL ) Procedure: After an appropriate timeout to be sure we were dealing with Albert Lazo, the patient was seated on the side of the bed. Right chest was percussed. I chose an area 1 interspace below the top of the dullness. We used local 1% Xylocaine and topical Betadine. I did not obtain any fluid from this interspace. We went one interspace below and obtained serosanguineous fluid without difficulty. We used the thoracentesis needle and catheter provided on the arrow tray. We obtained a total of 800 mL of serosanguineous fluid without difficulty. Patient had some pleuritic pain toward the end of the procedure so we stopped before removing all the fluid. Chest x-ray is pending postthoracentesis. There were no immediate complications. Anesthesia: local Surgeon / Physician: Rohan Yañez Estimated blood loss: none Specimens: other (Pleural fluid sent for studies see orders) Condition: stable Disposition: floor Results - Labs CBC & BMP: 04/28/17 04:28 04/28/17 04:28 Discharge Plan - Discharge Medications No Action Atorvastatin [Lipitor] 40 mg PO BEDTIME diphenhydrAMINE CAP [Benadryl Cap] 50 mg PO BEDTIME PRN PRN Reason: Insomnia Acetaminophen Tab [Tylenol Tab] 650 mg PO Q4H PRN PRN Reason: Pain amLODIPine [Norvasc] 2.5 mg PO BEDTIME Citalopram [CeleXA] 20 mg PO BEDTIME Cilostazol [Pletal] 50 mg PO BID Ezetimibe [Zetia] 10 mg PO DAILY Carvedilol [Coreg] 3.125 mg PO BID Loratadine Tab [Claritin Tab] 10 mg PO DAILY Lisinopril 20 mg PO DAILY Aspirin [Ecotrin] 81 mg PO DAILY Albuterol Sulfate [Ventolin HFA] 2 puff INH Q4H PRN PRN Reason: Shortness Of Breath/Wheezing Phenylephrine/Guaifenesin [Deconex IR] 1 tablet PO QID PRN PRN Reason: Allergy Symptoms Pantoprazole Tab [Protonix Tab] 40 mg PO BID ALPRAZolam [Xanax] 0.25 mg PO TID PRN PRN Reason: Anxiety Furosemide Tab [Lasix Tab] 40 mg PO DAILY - Follow Up or Referral - Forms/Instructions
[2017-04-29 09:29] LABS: Lymphocytes,Pleural Fluid 85 %; Monocytes,Pleural Fluid 5 %; Neutrophils,Pleural Fluid 10 %; RBC,Pleural Fluid 50191 T/CUMM
--- NOTE | 2017-04-29 10:12 | Cardiology Progress Note ---
Assessment and Plan (1) Pleural effusion, right Status: Acute Current Visit: Yes (2) Generalized weakness Status: Acute Current Visit: No (3) right lower lobe infiltrate Status: Acute Assessment and plan: There is some question as to whether this may be aspiration versus a minimally acquired pneumonia with parapneumonic effusion. I think this is less likely heart failure related as a BNP is below 150. I am going to check an echocardiogram to be certain there is no evidence of any problem with pericardial fluid or change in LV function. Current Visit: No (4) Diabetes Status: Chronic Current Visit: No Qualifiers: Diabetes mellitus type: type 2 Diabetes mellitus complication status: without complication Diabetes mellitus long term care administrator insulin use: without detention use Qualified Code(s): E11.9 - Type 2 diabetes mellitus without complications (5) Hypercholesterolemia Status: Chronic Current Visit: No (6) Hypertension Status: Chronic Current Visit: No Qualifiers: Hypertension type: essential hypertension Qualified Code(s): I10 - Essential (primary) hypertension (7) Status post coronary artery bypass graft Status: Chronic Current Visit: No (8) coronary artery disease with stents Status: Chronic Current Visit: No (9) Post pericardiotomy syndrome Status: Acute Assessment and plan: I think most of what he is describing and dealing with fits this diagnosis. Anti-inflammatory management is what we need to pursue if he can tolerate that and I will review his medications. Current Visit: Yes Cardiology - PN: Subj Interval history: Mr. Lazo is breathing much better and is supine sleeping. He had 800 cc of serosanguineous fluid removed from the right chest and is much less dyspneic. His echocardiogram does show his ejection fraction to be in the 40% range with distal septal and apical hypo-/akinesis and paradoxical septal motion likely related to his bundle branch block. I have encouraged him to get up and move about some and hopefully can be discharged in the next several days. Exam (Progress Note) - Constitutional Vitals: Period Temp Pulse Resp BP Sys/Reed Pulse Ox Last 24 Hr 97.6 F-98.6 F 75-80 16-20 102-143/51-67 92-97 Exam: Physical examination: General: The patient is awake and alert and oriented -3. Mood and affect are normal. HEENT: Normocephalic, sclera are clear there are no lid xanthelasmas noted. Oral mucosa is free of cyanosis or pallor. Neck: The neck is supple without JVD. Carotid upstrokes are normal volume and amplitude. There is no audible bruit. There is no palpable thyroid. Trachea is midline. Chest: Lungs: The patient is comfortable at rest without intercostal retractions or abdominal breathing. There are no adventitial sounds rales rubs rhonchi or wheezes noted. Cardiovascular: The PMI is nondisplaced. No palpable thrill S3 or S4. There is a regular rate and rhythm with no murmur rub or gallop noted. Dorsalis pedis posterior tibial are 1+ and equal and femoral pulses are 2+ and equal bilaterally. Abdomen: Abdomen is soft and nontender with normal active bowel sounds. There is no palpable mass or organomegaly noted. There is no midline bruit. Extremities exam: There is no cyanosis clubbing or edema. Skin: Skin is warm and dry without ecchymosis or urticaria or skin rash. There are no palpable nodules. Musculoskeletal: There is no kyphosis or scoliosis noted. Result/EKG - Labs CBC & BMP: 04/28/17 04:28 04/28/17 04:28 Labs: Laboratory Results - last 24 hr 04/29/17 04/29/17 04/29/17 09:09 09:09 09:09 Fluid Total Protein Fluid LDH 302 Pleural WBC 1631 Pleural RBC [address] 100 Pleural Neutrophils 10 Pleural Lymphocytes 85 Pleural Monocytes 5 Pleural Diff Comment Pleural Glucose 111 04/29/17 09:09 Fluid Total Protein 4.2 Fluid LDH Pleural WBC Pleural RBC Pleural Tot Cell Ct Pleural Neutrophils Pleural Lymphocytes Pleural Monocytes Pleural Diff Comment Pleural Glucose
[2017-04-29] MEDS: LISINOPRIL 20 MG TABLET PO SCH (10:33)
[2017-04-29] MEDS: CILOSTAZOL 50 MG TABLET PO SCH ×2 (10:33→21:16)
[2017-04-29] MEDS: PANTOPRAZOLE 40 MG TABLET PO SCH (10:33)
[2017-04-29] MEDS: DOCUSATE SODIUM 100 MG CAPSULE PO SCH ×2 (10:34→21:17)
[2017-04-29] MEDS: LORATADINE 10 MG TABLET PO SCH (10:34)
[2017-04-29] MEDS: CARVEDILOL 3.125 MG TABLET PO SCH ×2 (10:34→21:16)
[2017-04-29] MEDS: FUROSEMIDE 40 MG TABLET PO SCH (10:35)
[2017-04-29] MEDS: ASPIRIN 325 MG TABLET PO SCH (10:36)
[2017-04-29] MEDS: COLCHICINE 0.6 MG TABLET PO SCH ×2 (10:36→21:16)
[2017-04-29] MEDS: DEXTROSE 5% NACL 0.45% 1,000 ML IV SCH (10:37)
--- NOTE | 2017-04-29 11:20 | XRay Report ---
Exam: XR chest 1V Date: 04/29/2017 10:00 AM Comparison: 04/28/2017 Indication: Status post right thoracentesis Technique:[Portable AP sitting chest] Findings: The heart is borderline in size with prior median sternotomy. Interval right thoracentesis with smaller right pleural effusion. Reduced parenchymal findings at the right lung base. The left lung is stable in appearance. No evidence of pneumothorax. Stable mediastinum with degenerative changes. Impression: No evidence pneumothorax following interval right thoracentesis. Smaller right pleural effusion with reduced atelectasis/infiltration at the right lung base. Status post median sternotomy. PROCEDURE INTERPRETED AT [facility] DEPARTMENT OF RADIOLOGY Final Report Signed by: Dr. Bobbi Kerr
--- NOTE | 2017-04-29 12:46 | Family Practice Progress Note ---
Family Practice - PN: Subj Interval history: Patient was laying in bed with the blinds closed on entering the room. Still complaining of some pleuritic type chest pain. Patient states that he did well when he ambulated in chen today as long as he was on oxygen. Patient signs and symptoms meet the criteria for post pericardiotomy syndrome. He has pleuritic chest pain, pleural effusion, C-reactive protein significantly elevated at 8.2 with a sedimentation rate 104. He is WBC was elevated this a.m. but patient was started on steroids yesterday. Cardiac echo is pending. I am going to start him on empiric colchicine therapy. I appreciate both pulmonary and cardiology input. We will continue present evaluation and treatment. 04/29/17 patient sitting up smiling appears to feel much better this a.m. Dr. Yañez performed a thoracentesis with removal of 800 cc of serous fluid. Patient states she is ambulating in the chen twice since procedure and has done well. I empirically started him on colchicine yesterday for what I still feel is a post pericardiotomy syndrome. Reviewed echo and Dr. Prado has recommended patient to increase activity. Patient states that his appetite is improved this a.m. hopefully he will continue to improve. Exam (Progress Note) - Constitutional Vitals: Period Temp Pulse Resp BP Sys/Reed Pulse Ox Last 24 Hr 97.6 F-98.6 F 75-80 16-20 110-143/55-67 93-97 Results - Labs CBC & BMP: 04/28/17 04:28 04/28/17 04:28 Assessment and Plan (1) right lower lobe infiltrate Status: Acute Assessment and plan: Patient was started on empiric antibiotics in the emergency room. Will consult pulmonary for assistance. Patient has had some pleural effusion noted every since his coronary artery bypass surgery but apparently this is worse. His dyspnea is probably multifactorial Current Visit: No (2) Status post coronary artery bypass graft Status: Chronic Assessment and plan: Patient had two-vessel coronary artery bypass done in January of this year. He has had a mental status change and significant decline since that time. Current Visit: No (3) coronary artery disease with stents Status: Chronic Current Visit: No (4) Recent mental status change Status: Acute Assessment and plan: Patient has had a mental status change since his coronary bypass graft. He has always been a very energetic outgoing person but now is very reserved and appears depressed. Family states that he is very quiet and is actually a different person. All family members are very concerned. He continues to have a progressive decline. I plan to increase his antidepressants and will obtain a cardiology and pulmonary consultation. Feels the symptoms are multifactorial Current Visit: No (5) Generalized weakness Status: Acute Assessment and plan: Patient is having progressive weakness. States he can only ambulate short distances without dyspnea and weakness. Family states that he basically wants to sit in a chair. This is a total change for this patient. Current Visit: No (6) Obstructive sleep apnea Status: Chronic Assessment and plan: Stable but not sure patient has been using CPAP Current Visit: Yes (7) Hypertension Status: Chronic Assessment and plan: Stable on present medication Current Visit: No Qualifiers: Hypertension type: essential hypertension Qualified Code(s): I10 - Essential (primary) hypertension (8) Hypercholesterolemia Status: Chronic Assessment and plan: Stable with present medication Current Visit: No
[2017-04-29] MEDS: AZITHROMYCIN INJ 500 MG in SODIUM CHLORIDE 0.9% 250 ML IV SCH (21:10)
[2017-04-29] MEDS: EZETIMIBE 10 MG TABLET PO SCH (21:16)
[2017-04-29] MEDS: amLODIPine 2.5 MG TABLET PO SCH (21:16)
[2017-04-29] MEDS: ZALEPLON 5 MG CAPSULE PO PRN (21:16)
[2017-04-29] MEDS: CITALOPRAM 40 MG TABLET PO SCH (21:17)
[2017-04-29] MEDS: ATORVASTATIN 40 MG TABLET PO SCH (21:21)
[2017-04-29] MEDS: cefTRIAXone 2,000 MG in SODIUM CHLORIDE 0.9% 100 ML IV SCH (23:26)
[2017-04-30] MEDS: DEXTROSE 5% NACL 0.45% 1,000 ML IV SCH ×2 (00:01→13:48)
[2017-04-30] MEDS: methylPREDNISolone SOD SUC 40 MG/1 ML VIAL IV SCH ×3 (02:44→17:56)
[2017-04-30 04:56] LABS: Basophils % 0.1 % (0.0-0.8); Hematocrit 30.6 VOL% (42.0-52.0); Hemoglobin 9.9 GM/DL (14.0-18.0); Immature Granulocytes % 0.7 %; Immature Granulocytes Absolute 0.09 #; Lymphocytes # 0.7 10*3/uL (1.4-4.0); Lymphocytes % 5.3 % (21.2-54.2); Mean Corpuscular HGB Conc 32.4 GM/DL (32-36); Mean Corpuscular Hemoglobin 27 PG (27-34); Mean Corpuscular Volume 84.1 FL (87-102); Mean Platelet Volume 10.2 FL (9.6-12.0); Monocytes # 0.5 10*3/uL (0.11-0.8); Monocytes % 3.7 % (1.7-12.7); Neutrophils # 12.5 10*3/uL (1.4-7.4); Neutrophils % 90.2 % (38.7-73.9); Platelet Count 369 T/CUMM (130-400); Red Blood Count 3.64 MC/CUMM (3.8-5.5); Red Cell Distribution Width 17.7 % (9.3-17.3); White Blood Count 13.8 T/CUMM (4-12)
[2017-04-30 05:30] LABS: Albumin 2.3 G/DL (3.4-5.0); Bilirubin,Total 0.4 MG/DL (0.2-1.0); Calcium 8.2 MG/DL (8.5-10.1); Osmolality,Calculated 289.1 MOS/KG (273-304); Potassium 3.9 MMOL/L (3.5-5.1); Total Protein 5.7 G/DL (6.4-8.3)
[2017-04-30 06:07] LABS: Sedimentation Rate-Westergren 76 MM/HR (0-20)
--- NOTE | 2017-04-30 07:46 | Pulmonology Progress Note ---
Pulmonary - PN: Subj Interval history: 82-year-old man that had recent heart surgery. He has a right pleural effusion. Elevated white count. The fluid does layer enough to tap although it is not a large effusion. Will do right thoracentesis this morning. 04/30/2017 we removed 800 mL of serosanguineous fluid. Had over 50,000 red blood cells per cubic millimeter. Likely this is post pericardiotomy, however in this circumstance we need to rule out a pulmonary embolism. Cytology and cultures are pending as well. Patient having a pleural rub on the right side this morning pretty much as expected. Await further studies from the pleural fluid. Echocardiogram showed ejection fraction 35-40% with mild to moderate AR and MR and mild pulmonary hypertension. Peak pulmonary artery pressure 44. Exam (Progress Note) - Constitutional Vitals: Period Temp Pulse Resp BP Sys/Reed Pulse Ox Last 24 Hr 97.8 F-99.0 F 64-90 18-20 126-151/63-73 94-97 Exam: Patient's alert oriented vital signs normal. Pupils react to light. Throat is clear. Neck supple no bruits. Chest reveals a right pleural friction rub. Heart normal rate and rhythm no murmurs. Abdomen soft nontender no masses. Extremities no clubbing cyanosis edema calves nontender. Results - Labs CBC & BMP: 04/30/17 04:28 04/30/17 04:28 Lab Results: I have reviewed the past 24 hour labs - Diagnostic Findings Procedure: Chest x-ray: image reviewed by me (Post thoracentesis x-ray yesterday shows most of the right fluid gone, no pneumothorax) Assessment and Plan (1) Pleural effusion, right Status: Acute Assessment and plan: Effusion is relatively small. However he has white count of 25,000. Essentially normal BNP. This may be post pericardial. May be parapneumonic. I will get a right lateral decubitus film and see if there is enough fluid to tap. 04/29/2017 pleural effusion is relatively small but he has an elevated white count. We will tap this. 04/30/2017 hemorrhagic pleural effusion. Cytology and cultures pending. Differential would be between post pericardiotomy, pulmonary embolism, less likely malignancy. Infectious etiology also a possibility in the postoperative state. Current Visit: Yes (2) Status post coronary artery bypass graft Status: Chronic Assessment and plan: No active angina. 04/29/2017 no symptoms of angina. 04/30/2017 cardiology following. Current Visit: No (3) right lower lobe infiltrate Status: Acute Assessment and plan: Difficult to tell whether this represents pneumonia or compression of the lower lobe. I agree with empiric antibiotics. 04/29/2017 on empiric antibiotics. 04/30/2017 empiric antibiotics. Current Visit: No (4) Obstructive sleep apnea Status: Chronic Assessment and plan: Continuing CPAP at night. Current Visit: Yes
--- NOTE | 2017-04-30 08:39 | CT Report ---
History: Dyspnea, hemorrhagic pleural effusion Date: 04/30/2017 Study: CT chest with IV contrast with pulmonary embolus technique Comparison exam: CT chest March 31, [address] sections were obtained through the lungs following the IV administration of 100 mL of Omnipaque 350 without immediate complication. Multiplanar reconstruction images are also evaluated. There is no discrete filling defect within the pulmonary arterial tree to suggest acute pulmonary embolic disease. There is prominent coronary artery calcification in this patient status post previous CABG. There is no focal aneurysm of the thoracic aorta. There is no mediastinal mass or mediastinal lymphadenopathy. There is a mild to moderate right pleural effusion with trace left pleural effusion. There is some dependent atelectasis in the right lower lobe. There is mild platelike subsegmental atelectasis or scarring scattered in both lungs, more so in the lower lobes. There is moderate thoracic spondylosis. There is no acute abnormality of the partially visualized upper abdomen. Impression: No evidence of acute pulmonary embolic disease. Mild to moderate right pleural effusion with trace left pleural effusion. Scattered mild platelike subsegmental atelectasis or scarring. Coronary artery calcification PROCEDURE INTERPRETED AT [facility] DEPARTMENT OF RADIOLOGY Final Report Signed by: Dr. Anabel Ramos
[2017-04-30] MEDS: LORATADINE 10 MG TABLET PO SCH (10:41)
[2017-04-30] MEDS: ASPIRIN 325 MG TABLET PO SCH (10:41)
[2017-04-30] MEDS: COLCHICINE 0.6 MG TABLET PO SCH ×2 (10:41→22:26)
[2017-04-30] MEDS: LISINOPRIL 20 MG TABLET PO SCH (10:41)
[2017-04-30] MEDS: FUROSEMIDE 40 MG TABLET PO SCH (10:41)
[2017-04-30] MEDS: PANTOPRAZOLE 40 MG TABLET PO SCH (10:41)
[2017-04-30] MEDS: CARVEDILOL 3.125 MG TABLET PO SCH ×2 (10:42→22:27)
[2017-04-30] MEDS: DOCUSATE SODIUM 100 MG CAPSULE PO SCH ×2 (10:46→22:26)
[2017-04-30] MEDS: CILOSTAZOL 50 MG TABLET PO SCH ×2 (10:46→22:26)
--- NOTE | 2017-04-30 14:32 | Family Practice Progress Note ---
Family Practice - PN: Subj Interval history: Patient was laying in bed with the blinds closed on entering the room. Still complaining of some pleuritic type chest pain. Patient states that he did well when he ambulated in chen today as long as he was on oxygen. Patient signs and symptoms meet the criteria for post pericardiotomy syndrome. He has pleuritic chest pain, pleural effusion, C-reactive protein significantly elevated at 8.2 with a sedimentation rate 104. He is WBC was elevated this a.m. but patient was started on steroids yesterday. Cardiac echo is pending. I am going to start him on empiric colchicine therapy. I appreciate both pulmonary and cardiology input. We will continue present evaluation and treatment. 04/29/17 patient sitting up smiling appears to feel much better this a.m. Dr. Yañez performed a thoracentesis with removal of 800 cc of serous fluid. Patient states she is ambulating in the chen twice since procedure and has done well. I empirically started him on colchicine yesterday for what I still feel is a post pericardiotomy syndrome. Reviewed echo and Dr. Prado has recommended patient to increase activity. Patient states that his appetite is improved this a.m. hopefully he will continue to improve. 04/30/17 patient appears to slowly improve. His chest wall pain is improved. Dr. Yañez and ordered a CT chest which revealed some pleural effusion but no acute emboli noted. His Westergren sedimentation rate and C-reactive proteins have significantly improved. Patient feels that his appetite is improving and his overall condition has improved. He is still weak but has definitely improved since his thoracentesis and starting present medications. Will have patient continue to increase activity and if improved hopefully can discharge soon. All findings are still consistent with post pericardotomy syndrome Exam (Progress Note) - Constitutional Vitals: Period Temp Pulse Resp BP Sys/Reed Pulse Ox Last 24 Hr 96.4 F-99.0 F 64-90 18-20 126-152/63-74 94-97 Results - Labs CBC & BMP: 04/30/17 04:28 04/30/17 04:28 Assessment and Plan (1) right lower lobe infiltrate Status: Acute Assessment and plan: Patient was started on empiric antibiotics in the emergency room. Will consult pulmonary for assistance. Patient has had some pleural effusion noted every since his coronary artery bypass surgery but apparently this is worse. His dyspnea is probably multifactorial Current Visit: No (2) Status post coronary artery bypass graft Status: Chronic Assessment and plan: Patient had two-vessel coronary artery bypass done in January of this year. He has had a mental status change and significant decline since that time. Current Visit: No (3) coronary artery disease with stents Status: Chronic Current Visit: No (4) Recent mental status change Status: Acute Assessment and plan: Patient has had a mental status change since his coronary bypass graft. He has always been a very energetic outgoing person but now is very reserved and appears depressed. Family states that he is very quiet and is actually a different person. All family members are very concerned. He continues to have a progressive decline. I plan to increase his antidepressants and will obtain a cardiology and pulmonary consultation. Feels the symptoms are multifactorial Current Visit: No (5) Generalized weakness Status: Acute Assessment and plan: Patient is having progressive weakness. States he can only ambulate short distances without dyspnea and weakness. Family states that he basically wants to sit in a chair. This is a total change for this patient. Current Visit: No (6) Obstructive sleep apnea Status: Chronic Assessment and plan: Stable but not sure patient has been using CPAP Current Visit: Yes (7) Hypertension Status: Chronic Assessment and plan: Stable on present medication Current Visit: No Qualifiers: Hypertension type: essential hypertension Qualified Code(s): I10 - Essential (primary) hypertension (8) Hypercholesterolemia Status: Chronic Assessment and plan: Stable with present medication Current Visit: No
--- NOTE | 2017-04-30 17:34 | Cardiology Progress Note ---
Ketan Moreno Vanessa RN, am scribing for, and in the presence of, Jewel Mata MD 17:34. Assessment and Plan - Time spent with patient Time spent with patient: Greater than 30 minutes (1) Pleural effusion, right Status: Acute Assessment and plan: Status post right thoracentesis. Dyspnea is improved. Finals cultures pending. Current Visit: Yes (2) Right pulmonary infiltrate on CXR Status: Acute Assessment and plan: Recent hospitalization and treatment for pneumonia. He is receiving empiric antibiotic to cover for pneumonia as it has been difficult to ascertain etiology of infiltrate. Current Visit: Yes (3) Post pericardiotomy syndrome Status: Acute Assessment and plan: Clinical findings fitting for pericardiotomy syndrome. He has been started on anti-inflammatory. Current Visit: Yes (4) Generalized weakness Status: Acute Assessment and plan: May benefit from PT/OT. Current Visit: No (5) Diabetes Status: Chronic Assessment and plan: Continue current plan of care. Current Visit: No Qualifiers: Diabetes mellitus type: type 2 Diabetes mellitus complication status: without complication Diabetes mellitus residential insulin use: without intermediate accountant use Qualified Code(s): E11.9 - Type 2 diabetes mellitus without complications (6) Hypercholesterolemia Status: Chronic Assessment and plan: Statin has been continued. Current Visit: No (7) Hypertension Status: Chronic Assessment and plan: Overall, fairly well-controlled. Continue as present. Current Visit: No Qualifiers: Hypertension type: essential hypertension Qualified Code(s): I10 - Essential (primary) hypertension (8) Status post coronary artery bypass graft Status: Chronic Assessment and plan: Appears to be stable. He is not having any anginal complaint. Current Visit: No Cardiology - PN: Subj Interval history: PRIMARY RECLAMATION SUPERVISOR: DR. FUCHS SUMMARY: Mr. Lazo is an 82-year-old white male with risk factors significant for hypertension, hyperlipidemia, former smoking, and previous history of CAD. He has had previous coronary artery stenting. Patient is status post 2 vessel CABG in January 2017 with SAMUEL graft to diagonal and SVG to second OM branch. He has a chronic left bundle branch block and obstructive sleep apnea. He presented to [facility] ED on the evening of April 26 with generalized weakness and pleuritic type chest pain with cough and wheeze. He had recently just been discharged from hospital the first week of April for treatment of shortness of breath and pneumonia. Chest x-ray in ER demonstrated a right pleural effusion. WBC 25,500, BNP 127. Admitted to telemetry unit for closer observation and treatment. He is now status post right thoracentesis with removal of 800 mL serosanguineous fluid, and he has had improvement of dyspnea. Pleural fluid showed large amount of RBCs, and pulmonary embolus ruled out with chest CT. clinical findings thus far felt to be suggestive of post periocardiotomy syndrome. Echocardiogram on April 26 with diffuse LV hypokinesis, EF 35-40%, mild TR with PA pressure 44 mmHg, normal pericardium without effusion. April: Mr. Lazo is resting quietly. He is lying flat in bed, and there is no acute distress noted. He rouses easily, is pleasant, and in good spirits. No chest pain or tightness, and he denies feeling dyspneic. Reports ambulating to bathroom and back to bed without difficulty. Appetite is good. BP 150/70. Tele monitoring reveals sinus rhythm, regular rate, and no overt ectopy or sustained dysrhythmia. WBC decreased from 25.5 to 13.8 today. Electrolytes and renal function are stable. C-reactive protein also improved today and 2.44 (8.29 on ). Exam (Progress Note) - Constitutional Vitals: Period Temp Pulse Resp BP Sys/Reed Pulse Ox Last 24 Hr 96.4 F-99.0 F 64-90 18-20 126-152/63-74 94-97 Exam: General: The patient is awake and alert and oriented x3. Mood and affect are normal. He is pleasant, cooperative, and in good spirits today. HEENT: Normocephalic, sclera are clear,. Oral mucosa is free of cyanosis or pallor. No laceration, hematoma, periorbital swelling. Neck: The neck is supple without tenderness or JVD. Carotid upstrokes are normal volume and amplitude. There is no audible bruit. There is no palpable thyroid. Trachea is midline. Chest: Lungs: The patient is comfortable at rest without intercostal retractions or abdominal breathing. Pleural rub. No rhonchi or wheezes noted. Cardiovascular: Regular rate and rhythm with no murmur, rub, or gallop noted. Dorsalis pedis posterior tibial are 1+ and equal and femoral pulses are 2+ and equal bilaterally. Abdomen: Abdomen is soft, nontender. Normal active bowel sounds. There is no palpable mass or organomegaly noted. No thrill or bruit. Extremities exam: There is no cyanosis clubbing or edema. Skin: Skin is warm, dry, intact. No ecchymosis, urticaria, skin rash, or suspicious lesion. Musculoskeletal: Normal exam. No kyphosis or scoliosis noted. Result/EKG - Labs CBC & BMP: 04/30/17 04:28 04/30/17 04:28 Lab Results: I have reviewed the past 24 hour labs Labs: Laboratory Results - last 24 hr 04/30/17 04/30/17 04:28 04:28 WBC 13.8 H D RBC 3.64 L Hgb 9.9 L Hct 30.6 L MCV 84.1 L MCH 27 MCHC 32.4 RDW 17.7 H Plt Count 369 MPV 10.2 Neut % (Auto) 90.2 H Lymph % (Auto) 5.3 L [place] % (Auto) 3.7 Eos % (Auto) 0.0 Baso % (Auto) 0.1 Neut # (Auto) 12.5 H Lymph # (Auto) 0.7 L [place] # (Auto) 0.5 Eos # (Auto) 0.0 Baso # (Auto) 0.0 Immature Gran % 0.7 Nucleated RBC % 0.0 Immature Gran # 0.09 Nucleated RBCs # 0.00 ESR Westergren 76 H Sodium 142 Potassium 3.9 Chloride 106 Carbon Dioxide 30 Anion Gap 9.9 BUN 35 H Creatinine 1.20 GFR Calculation 60 BUN/Creatinine Ratio 29.00 H Glucose 89 Calculated Osmolality 289.1 Calcium 8.2 L Total Bilirubin 0.40 AST 77 H ALT 128 H Alkaline Phosphatase 60 C-Reactive Protein 2.44 H Total Protein 5.7 L Albumin 2.3 L Globulin 3.4 Albumin/Globulin Ratio 0.6 L - Diagnostic Findings Procedure: Chest x-ray: image reviewed by me, report reviewed by me, CT - chest : image reviewed by me, report reviewed by me - EKG EKG results: interpreted by me, no acute changes EKG shows: sinus rhythm (Chronic LBBB) Esperanza Moreno Michael, MD, personally performed the services described in this documentation, ascribed by Ethel Aceves RN in my presence, and it is both accurate and complete 4 .
[2017-04-30] MEDS: AZITHROMYCIN INJ 500 MG in SODIUM CHLORIDE 0.9% 250 ML IV SCH (22:25)
[2017-04-30] MEDS: amLODIPine 2.5 MG TABLET PO SCH (22:26)
[2017-04-30] MEDS: EZETIMIBE 10 MG TABLET PO SCH (22:26)
[2017-04-30] MEDS: CITALOPRAM 40 MG TABLET PO SCH (22:27)
[2017-04-30] MEDS: ATORVASTATIN 40 MG TABLET PO SCH (22:27)
[2017-04-30] MEDS: ZALEPLON 5 MG CAPSULE PO PRN (22:31)
[2017-04-30] MEDS: cefTRIAXone 2,000 MG in SODIUM CHLORIDE 0.9% 100 ML IV SCH (23:45)
[2017-05-01] MEDS: methylPREDNISolone SOD SUC 40 MG/1 ML VIAL IV SCH ×2 (02:19→09:57)
[2017-05-01] MEDS: DEXTROSE 5% NACL 0.45% 1,000 ML IV SCH (02:20)
[2017-05-01 05:50] LABS: Calcium 8.1 MG/DL (8.5-10.1); Magnesium 1.9 MG/DL (1.8-2.4); Osmolality,Calculated 295.8 MOS/KG (273-304); Potassium 4.7 MMOL/L (3.5-5.1)
--- NOTE | 2017-05-01 09:13 | Pulmonology Progress Note ---
Pulmonary - PN: Subj Interval history: 82-year-old man that had recent heart surgery. He has a right pleural effusion. Elevated white count. The fluid does layer enough to tap although it is not a large effusion. Will do right thoracentesis this morning. 04/30/2017 we removed 800 mL of serosanguineous fluid. Had over 50,000 red blood cells per cubic millimeter. Likely this is post pericardiotomy, however in this circumstance we need to rule out a pulmonary embolism. Cytology and cultures are pending as well. Patient having a pleural rub on the right side this morning pretty much as expected. Await further studies from the pleural fluid. Echocardiogram showed ejection fraction 35-40% with mild to moderate AR and MR and mild pulmonary hypertension. Peak pulmonary artery pressure 44. 05/01/2017 patient's chest x-ray today shows very little change in the residual pleural fluid seen after her thoracentesis. He had no evidence of pulmonary emboli on CT scan. This is probably post pericardiotomy. I do think he has had a secondary bronchopneumonia in his right long. Would suggest oral antibiotics for another 5 or 6 days. Agree with anti-inflammatory drugs such as prednisone or nonsteroidal anti-inflammatory drugs. I need to see him back in 3 weeks or so for follow-up chest x-ray. He has been advised to call me if he has increasing shortness of breath related to this Exam (Progress Note) - Constitutional Vitals: Period Temp Pulse Resp BP Sys/Reed Pulse Ox Last 24 Hr 96.9 F-98.7 F 62-88 18-22 131-159/60-80 91-98 Exam: Patient's alert oriented vital signs normal. Pupils react to light. Throat is clear. Neck supple no bruits. Chest reveals slightly decreased breath sounds at the right base. No rub today. Heart normal rate and rhythm no murmurs. Abdomen soft nontender no masses. Extremities no clubbing cyanosis edema calves nontender. Results - Labs CBC & BMP: 04/30/17 04:28 05/01/17 04:15 Lab Results: I have reviewed the past 24 hour labs - Diagnostic Findings Procedure: Chest x-ray: image reviewed by me (Chest x-ray shows small right pleural effusion. Little different from x-ray of 04/29/2017.) Assessment and Plan (1) Pleural effusion, right Status: Acute Assessment and plan: Effusion is relatively small. However he has white count of 25,000. Essentially normal BNP. This may be post pericardial. May be parapneumonic. I will get a right lateral decubitus film and see if there is enough fluid to tap. 04/29/2017 pleural effusion is relatively small but he has an elevated white count. We will tap this. 04/30/2017 hemorrhagic pleural effusion. Cytology and cultures pending. Differential would be between post pericardiotomy, pulmonary embolism, less likely malignancy. Infectious etiology also a possibility in the postoperative state. 05/01/2017 likely post pericardiotomy. Cytology still not back. This can be reviewed post discharge. May also be a parapneumonic component since his white blood count has come down with antibiotics for presumptive diagnosis of right lower lobe pneumonia. Current Visit: Yes (2) Status post coronary artery bypass graft Status: Chronic Assessment and plan: No active angina. 04/29/2017 no symptoms of angina. 04/30/2017 cardiology following. 05/01/2017 no signs of pericardial effusion on echo. Current Visit: No (3) right lower lobe infiltrate Status: Acute Assessment and plan: Difficult to tell whether this represents pneumonia or compression of the lower lobe. I agree with empiric antibiotics. 04/29/2017 on empiric antibiotics. 04/30/2017 empiric antibiotics. Current Visit: No (4) Obstructive sleep apnea Status: Chronic Assessment and plan: Continuing CPAP at night. Current Visit: Yes
--- NOTE | 2017-05-01 10:04 | XRay Report ---
History: Right-sided pleural effusion Date: 05/01/2017 Study: Chest x-ray PA and lateral Comparison exam: Portable chest x-ray 04/30/2017 There is stable cardiomegaly. The mediastinal contour is unchanged in this patient status post prior median sternotomy. The pulmonary vasculature is not engorged. There is a mild right-sided pleural effusion which is grossly similar to the previous study. There is no pneumothorax. There is some continued mild atelectasis/infiltrate in the right lower lobe which is grossly similar. There is no obvious new or worsening infiltrate. There is mild to moderate thoracic spondylosis. Impression: Mild right basilar atelectasis/infiltrate and pleural effusion, grossly similar to the previous day. No pneumothorax PROCEDURE INTERPRETED AT [facility] DEPARTMENT OF RADIOLOGY Final Report Signed by: Dr. Anabel Ramos
[2017-05-01] MEDS: PANTOPRAZOLE 40 MG TABLET PO SCH (10:10)
[2017-05-01] MEDS: CARVEDILOL 3.125 MG TABLET PO SCH (10:10)
[2017-05-01] MEDS: ASPIRIN 325 MG TABLET PO SCH (10:10)
[2017-05-01] MEDS: LISINOPRIL 20 MG TABLET PO SCH (10:10)
[2017-05-01] MEDS: LORATADINE 10 MG TABLET PO SCH (10:10)
[2017-05-01] MEDS: COLCHICINE 0.6 MG TABLET PO SCH (10:10)
[2017-05-01] MEDS: DOCUSATE SODIUM 100 MG CAPSULE PO SCH (10:11)
[2017-05-01] MEDS: FUROSEMIDE 40 MG TABLET PO SCH (10:11)
[2017-05-01] MEDS: CILOSTAZOL 50 MG TABLET PO SCH (10:14)
[2017-05-01 12:31] VITALS: BP 156/74
--- NOTE | 2017-05-01 14:24 | Discharge Summary ---
Diagnosis - Discharge Diagnosis (1) Post pericardiotomy syndrome Status: Acute (2) right lower lobe infiltrate Status: Acute (3) Pleural effusion, right Status: Acute (4) Status post coronary artery bypass graft Status: Chronic (5) coronary artery disease with stents Status: Chronic (6) Recent mental status change Status: Acute (7) Generalized weakness Status: Acute (8) Obstructive sleep apnea Status: Chronic (9) Hypertension Status: Chronic (10) Hypercholesterolemia Status: Chronic Specialty Discharge - Follow Up or Referrals Follow up with: Rohan Yañez MD [Physician] - 05/21/17 1:00 pm (3 WEEKS WITH CHEST XRAY) Discharge Plan - Discharge Data Disposition: Disch To Home/Self Care Condition at Discharge: Stable Discharge Diet: advance to your usual diet Activity: resume usual activities as tolerated Hygiene: no restrictions Weight Bearing at Discharge: full weight bearing Contact your physician if you experience:: fever over 101, Shortness of breath - Discharge Medications New Cefuroxime Tab [Ceftin] 500 mg PO BID #20 tablet Colchicine [Colcrys] 0.6 mg PO BID #60 tablet Continue Atorvastatin [Lipitor] 40 mg PO BEDTIME diphenhydrAMINE CAP [Benadryl Cap] 50 mg PO BEDTIME PRN PRN Reason: Insomnia Acetaminophen Tab [Tylenol Tab] 650 mg PO Q4H PRN PRN Reason: Pain amLODIPine [Norvasc] 2.5 mg PO BEDTIME Citalopram [CeleXA] 20 mg PO BEDTIME Cilostazol [Pletal] 50 mg PO BID Ezetimibe [Zetia] 10 mg PO DAILY Carvedilol [Coreg] 3.125 mg PO BID Loratadine Tab [Claritin Tab] 10 mg PO DAILY Lisinopril 20 mg PO DAILY Aspirin [Ecotrin] 81 mg PO DAILY Albuterol Sulfate [Ventolin HFA] 2 puff INH Q4H PRN PRN Reason: Shortness Of Breath/Wheezing Phenylephrine/Guaifenesin [Deconex IR] 1 tablet PO QID PRN PRN Reason: Allergy Symptoms Pantoprazole Tab [Protonix Tab] 40 mg PO BID ALPRAZolam [Xanax] 0.25 mg PO TID PRN PRN Reason: Anxiety Furosemide Tab [Lasix Tab] 40 mg PO DAILY - Follow Up or Referral Follow Up: Rohan Yañez MD [Physician] - 05/21/17 1:00 pm (3 WEEKS WITH CHEST XRAY) Heath Jean DO [Family Provider] - 2 Weeks - Forms/Instructions Exam - Constitutional Vitals: Period Temp Pulse Resp BP Sys/Reed Pulse Ox Last 24 Hr 96.9 F-98.7 F 62-88 18-22 131-159/60-80 91-98 Discharge Results Procedures and tests throughout hospitalization: Pending Orders 04/26/17 21:00 Blood Culture Stat 04/29/17 08:00 Cytology Request Routine 04/29/17 09:09 AFB Culture/Smears Routine 05/02/17 04:00 Basic Metabolic Panel IN AM Comp Blood Count Auto Diff IN AM 05/03/17 04:00 Basic Metabolic Panel IN AM Comp Blood Count Auto Diff IN AM Labs on day of discharge: Labs from last 24 hours 05/01/17 05/01/17 07:40 04:15 Sodium 144 Potassium 4.7 Chloride 107 Carbon Dioxide 30 Anion Gap 11.7 BUN 36 H Creatinine 1.20 GFR Calculation 60 BUN/Creatinine Ratio 30.00 H Glucose 142 H Calculated Osmolality 295.8 Calcium 8.1 L Magnesium 1.9 C-Reactive Protein 1.27 H Preliminary micro results at discharge 04/26/17 21:00 Blood Culture - Preliminary Blood No growth at 3 days 04/26/17 20:23 Blood Culture - Preliminary Blood No growth at 3 days DS: Provider Date of admission: 04/26/17 22:07 Primary care physician: . No PCP Attending physician on admission: Heath Jean DO Consults: 04/27/17 01:45 Consult to Dietitian [CONS] Routine Reason for Dietitian: Dietary Consult Consult Comment: per admission assessment protocol prompt; states poor appetite since CABG 04/27/17 17:20 Consult to Physician [CONS] Routine Comment: Right lower lobe effusion Consulting Provider: Conor Velasquez When should Consulting Provider be notified: In am 04/27/17 17:35 Consult to Physician [CONS] Routine Comment: Dyspnea with exertion Consulting Provider: Bk Torres When should Consulting Provider be notified: In am Discharging clinician: Heath Jean DO
[2017-05-01] MEDS ORDERED: CEFUROXIME 500 MG TABLET PO SCH (14:30)
--- NOTE | 2017-05-01 16:46 | Physician Query Form ---
CLICK EDIT DOCUMENT TO SELECT QUERY ANSWER --> OK --> SIGN Kady Bryant RN, CCDS Certified Clinical Base Filler Operator W) [phone] (f) [phone] [email or web address] PROVIDERS: Make your selection(s) from the choices in EACH section by typing an "x" and enter comments in the comment section. Please use your independent medical judgment in providing your response. This request does not imply that any particular answer is desired or expected. Patient admitted with Post Pericardiotomy Syndrome requiring thoracentesis, right lower lobe infiltrate noted on cxr and patient was stated on empiric antibiotics for possible pneumonia Please clarify the following: ( ) Pneumonia was monitored, evaluated, and/or treated and is a confirmed diagnosis ( ) Pneumonia was ruled out (x ) Pneumonia is still a likely, suspected, probable diagnosis at the time of patient's discharge ( ) Other, please specify: ( ) Clinically unable to determine COMMENTS: PLEASE ALSO DOCUMENT RESPONSE IN PROGRESS NOTES AND/OR DISCHARGE SUMMARY Use of terms such as suspected, likely, or probable (associated with a specific diagnosis that is being evaluated, monitored, or treated as if it exists) are acceptable and can be restated in the discharge summary if not ruled out. [facility]
--- NOTE | 2017-05-11 20:15 | Pathology Report from [facility] ---
[facility] [place] : [id number] PATIENT NAME : Albert Barajas ORDERING DR : JOSE COWAN MD CLINICAL HX: Right Pleural Effusion with Leukocytosis POST-OP DX: Same SPECIMEN INFO: Fluid,Pleural,Right - 700 mls red orange, cloudy CLASS: I CLASS COMMENTS: Chronic inflammation, bloodCELL BLOCK: Same CLASS LEGEND: CLASS 0 Material inadequate for diagnosis because of (see comment) CLASS I Absence of atypical or abnormal cells CLASS II Atypical Cytology but no evidence of malignancy CLASS III Cytology suggestive of but not conclusive for malignancy CLASS IV Cytology strongly suggestive of malignancy CLASS V Cytology conclusive for malignancy COLLECTED DATE: 04/30/2017 [facility] REPORT DATE: 05/11/2017 SUPPLEMENTAL TEXT: The following is the second opinion report from Dr. Israel Sexton, [employer], [facility] [place]:RIGHT PLEURAL EFFUSION: Lymphocytic effusion with no definitive evidence of lymphoma or leukemia.NOTE: The right pleural effusions consists predominantly of small mature appearing lymphocytes. Rare large cells are also present. A few immunostain performed for evaluation of possible lymphoma/leukemia show the majority of the lymphocytes to be T cells , with much fewer number of B cells. BCL1 and BCL6 are negative. The findings do not demonstrate conclusive evidence of a neoplastic process and the effusion is favored to be reactive. However, if there is clinical concern for lymphoma, submission of another effusion sample for comprehensive immunophenotyping by flow cytometry would be recommended. See microscopic description. SUPPLEMENTAL DATE: 05/07/2017 ELECTRONICALLY SIGNED BY: Tasneem Weller M.D. 05/11/2017 - 13:14:08 RICH
== END 2017-05-01 16:30 | disposition home health service (06) | DRG 314 ==
LOC: N.ED 20:01 → N.EDINP 22:07 → N.TELEN 23:04
PROVIDERS: ADMIT Family Medicine; ATTEND Family Medicine

== ENCOUNTER 2017-09-27 09:26 | Inpatient (IN) ==
[2017-09-27] MEDS ORDERED: MORPHINE 2 MG/1 ML SYRINGE IV STA (10:08)
[2017-09-27] MEDS ORDERED: ONDANSETRON 4 MG/2 ML VIAL IV STA (10:08)
[2017-09-27] MEDS ORDERED: FUROSEMIDE 100 MG/10 ML VIAL IV STA (10:08)
[2017-09-27] MEDS ORDERED: ASPIRIN 325 MG TABLET PO STA (10:08)
[2017-09-27] MEDS ORDERED: methylPREDNISolone SOD SUC 125 MG/2 ML VIAL IV STA (10:08)
[2017-09-27] MEDS ORDERED: cefTRIAXone 1,000 MG in SODIUM CHLORIDE 0.9% 100 ML IV STA (10:08)
[2017-09-27] MEDS ORDERED: ALBUTEROL 2.5 MG/3 ML NEB RESP TX SCH (10:30)
[2017-09-27] MEDS ORDERED: MORPHINE 2 MG/1 ML SYRINGE ONE (10:49)
[2017-09-27] MEDS ORDERED: ASPIRIN 325 MG TABLET ONE (10:49)
[2017-09-27] MEDS ORDERED: ONDANSETRON 4 MG/2 ML VIAL ONE (10:49)
[2017-09-27] MEDS ORDERED: FUROSEMIDE 40 MG/4 ML VIAL ONE (10:49)
[2017-09-27] MEDS ORDERED: methylPREDNISolone SOD SUC 125 MG/2 ML VIAL ONE (10:49)
[2017-09-27] MEDS ORDERED: cefTRIAXone 1,000 MG VIAL ONE (10:50)
[2017-09-27 10:56] LABS: Basophils % 0.4 % (0.0-0.8); Eosinophils # 0.1 10*3/uL (0.0-0.87); Eosinophils % 0.7 % (0.00-10.9); Hematocrit 21.5 VOL% (42.0-52.0); Immature Granulocytes % 0.4 %; Immature Granulocytes Absolute 0.03 #; Lymphocytes # 0.8 10*3/uL (1.4-4.0); Lymphocytes % 9.3 % (21.2-54.2); Mean Corpuscular HGB Conc 32.6 GM/DL (32-36); Mean Corpuscular Hemoglobin 30 PG (27-34); Mean Corpuscular Volume 92.3 FL (87-102); Mean Platelet Volume 10.2 FL (9.6-12.0); Monocytes # 0.5 10*3/uL (0.11-0.8); Monocytes % 6.1 % (1.7-12.7); Neutrophils % 83.1 % (38.7-73.9); Platelet Count 329 T/CUMM (130-400); Red Blood Count 2.33 MC/CUMM (3.8-5.5); White Blood Count 8.4 T/CUMM (4-12)
[2017-09-27 11:09] LABS: INR 1.2; PT Patient Result 12.8 SECS
[2017-09-27 11:23] LABS: Albumin 2.6 G/DL (3.4-5.0); Calcium 8.4 MG/DL (8.5-10.1); Magnesium 1.8 MG/DL (1.8-2.4); Osmolality,Calculated 293.5 MOS/KG (273-304); Potassium 4.4 MMOL/L (3.5-5.1)
[2017-09-27 11:27] LABS: Troponin I Only 5.63 NG/ML (0.00-0.045)
[2017-09-27] MEDS ORDERED: ONDANSETRON 4 MG/2 ML VIAL IV PRN (14:28)
[2017-09-27] MEDS ORDERED: MORPHINE 2 MG/1 ML SYRINGE IV PRN (14:28)
[2017-09-27] MEDS ORDERED: MAGNESIUM SULF RIDER 4 GM in PREMIX 1 EACH IV PRN (14:28)
[2017-09-27] MEDS ORDERED: MAGNESIUM SULF RIDER 2 GM in PREMIX 1 EACH IV PRN (14:28)
[2017-09-27] MEDS ORDERED: SODIUM CHLORIDE 0.9% 1,000 ML IV PRN (14:28)
[2017-09-27] MEDS ORDERED: SODIUM CHLORIDE 0.9% 1,000 ML IV SCH (14:28)
[2017-09-27] MEDS ORDERED: POTASSIUM CHLORIDE 20 MEQ TABLET PO PRN (14:28)
[2017-09-27 14:52] LABS: Apearance,Urine Slightly Hazy (Clear); Bacteria,Urine Occasional /HPF (Few); Bilirubin,Urine Negative (Negative); Blood, Urine Large mg/dL (Negative); Glucose,Urine (UA) Negative (Negative); Ketones,Urine Negative (Negative); Nitrite,Urine Negative (Negative); Protein,Urine Negative; RBC,Urine 117 /HPF (0-4); Squamous Epithelial Cell,Urine Occasional /HPF (0-10); Urine Color Yellow (Yellow); Urine Specific Gravity 1.006 (1.001-1.035); Urine Urobilinogen < 2.0 EU/DL (0.2-1.0); WBC,Urine 4 /HPF (0-6)
[2017-09-27 15:16] LABS: CKMB % 7.5 %; Troponin I Only 4.99 NG/ML (0.00-0.045)
[2017-09-27] MEDS ORDERED: FUROSEMIDE 20 MG/2 ML VIAL IM ONE (17:42)
[2017-09-27] MEDS: CARVEDILOL 3.125 MG TABLET PO SCH (21:10)
[2017-09-27] MEDS: CILOSTAZOL 50 MG TABLET PO SCH (21:10)
[2017-09-27] MEDS: CITALOPRAM 20 MG TABLET PO SCH (21:10)
[2017-09-27] MEDS: ATORVASTATIN 40 MG TABLET PO SCH (21:10)
[2017-09-28 03:49] LABS: Apearance,Urine Slightly Hazy (Clear); Bilirubin,Urine Negative (Negative); Blood, Urine Large mg/dL (Negative); Glucose,Urine (UA) Negative (Negative); Granular Casts,Urine 6 /LPF (0-1); Hyaline Casts,Urine 4 /LPF (0-3); Ketones,Urine Negative (Negative); Nitrite,Urine Negative (Negative); Protein,Urine Negative; RBC,Urine 60 /HPF (0-4); Urine Color Yellow (Yellow); Urine Specific Gravity 1.008 (1.001-1.035); Urine Urobilinogen < 2.0 EU/DL (0.2-1.0); WBC,Urine 2 /HPF (0-6)
[2017-09-28 04:32] LABS: Basophils % 0.1 % (0.0-0.8); Hematocrit 25.1 VOL% (42.0-52.0); Hemoglobin 8.4 GM/DL (14.0-18.0); Immature Granulocytes % 0.4 %; Immature Granulocytes Absolute 0.04 #; Lymphocytes # 0.4 10*3/uL (1.4-4.0); Lymphocytes % 4.4 % (21.2-54.2); Mean Corpuscular HGB Conc 33.5 GM/DL (32-36); Mean Corpuscular Hemoglobin 30 PG (27-34); Mean Corpuscular Volume 88.4 FL (87-102); Mean Platelet Volume 10.5 FL (9.6-12.0); Monocytes # 0.3 10*3/uL (0.11-0.8); Monocytes % 3.5 % (1.7-12.7); Neutrophils % 91.6 % (38.7-73.9); Platelet Count 293 T/CUMM (130-400); Red Blood Count 2.84 MC/CUMM (3.8-5.5); Red Cell Distribution Width 15.9 % (9.3-17.3); White Blood Count 9.9 T/CUMM (4-12)
[2017-09-28 05:05] LABS: Calcium 8.5 MG/DL (8.5-10.1); Magnesium 1.8 MG/DL (1.8-2.4); Osmolality,Calculated 298.5 MOS/KG (273-304); Potassium 4.8 MMOL/L (3.5-5.1)
[2017-09-28 05:19] LABS: Albumin 2.3 G/DL (3.4-5.0); Bilirubin,Total 1.3 MG/DL (0.2-1.0); Calcium 8.3 MG/DL (8.5-10.1); Magnesium 1.8 MG/DL (1.8-2.4); Osmolality,Calculated 297.5 MOS/KG (273-304); Potassium 4.7 MMOL/L (3.5-5.1); Risk Ratio 1.95; Thyroid Stimulating Hormone 0.769 uIU/ml (0.358-3.74); Total Protein 5.8 G/DL (6.4-8.3); VLDL CHOLESTEROL 9.6 MG/DL
[2017-09-28 05:23] LABS: Band Neutrophils 2 % (0-10); Lymphocytes 2 % (20-55); Metamyelocytes 1 %; Segmented Neutrophils 94 % (50-85); Total Cells Counted 100
[2017-09-28 05:24] LABS: Platelet Estimate Normal
[2017-09-28 05:33] LABS: Hypochromasia 2+
[2017-09-28] MEDS ORDERED: FUROSEMIDE 20 MG TABLET PO SCH (09:00)
[2017-09-28] MEDS: CILOSTAZOL 50 MG TABLET PO SCH (09:30)
[2017-09-28] MEDS: CARVEDILOL 3.125 MG TABLET PO SCH ×2 (09:44→21:24)
[2017-09-28] MEDS: cefTRIAXone 1,000 MG VIAL IM SCH (09:44)
[2017-09-28] MEDS: PANTOPRAZOLE 40 MG TABLET PO SCH (09:44)
[2017-09-28] MEDS: FUROSEMIDE 40 MG/4 ML VIAL IV SCH (09:45)
[2017-09-28] MEDS: SODIUM BICARBONATE 650 MG TABLET PO SCH ×3 (09:48→21:25)
[2017-09-28] MEDS: CLORAZEPATE 3.75 MG TABLET PO PRN (11:17)
[2017-09-28 12:58] LABS: Microalbum/Creat Ratio Random 305.4 RATIO (0-30)
[2017-09-28] MEDS: ISOSORBIDE MONONITRATE 30 MG TABLET PO SCH (14:19)
[2017-09-28] MEDS: hydrALAZINE 10 MG TABLET PO SCH ×2 (14:19→21:24)
[2017-09-28] MEDS: ATORVASTATIN 40 MG TABLET PO SCH (21:24)
[2017-09-28] MEDS: CITALOPRAM 20 MG TABLET PO SCH (21:24)
[2017-09-29 05:51] LABS: Basophils % 0.1 % (0.0-0.8); Eosinophils # 0.2 10*3/uL (0.0-0.87); Eosinophils % 1.9 % (0.00-10.9); Hematocrit 24.8 VOL% (42.0-52.0); Hemoglobin 8.4 GM/DL (14.0-18.0); Immature Granulocytes % 0.8 %; Immature Granulocytes Absolute 0.07 #; Lymphocytes # 0.8 10*3/uL (1.4-4.0); Lymphocytes % 8.9 % (21.2-54.2); Mean Corpuscular HGB Conc 33.9 GM/DL (32-36); Mean Corpuscular Hemoglobin 30 PG (27-34); Mean Corpuscular Volume 88.9 FL (87-102); Monocytes # 0.5 10*3/uL (0.11-0.8); Monocytes % 5.7 % (1.7-12.7); Neutrophils % 82.6 % (38.7-73.9); Platelet Count 307 T/CUMM (130-400); Red Blood Count 2.79 MC/CUMM (3.8-5.5); Red Cell Distribution Width 16.7 % (9.3-17.3); White Blood Count 8.5 T/CUMM (4-12)
[2017-09-29 06:23] LABS: Calcium 7.9 MG/DL (8.5-10.1); Magnesium 1.7 MG/DL (1.8-2.4); Osmolality,Calculated 301.4 MOS/KG (273-304); Potassium 4.4 MMOL/L (3.5-5.1)
[2017-09-29 07:11] LABS: Hepatitis A Ab IgM Quant 0.11 Index; Hepatitis A Ab IgM Result Negative (Negative); Hepatitis B Core IgM Quant 0.09 Index; Hepatitis B Core IgM Result Negative (Negative); Hepatitis B Surface Ag Quant 0.42 Index; Hepatitis B Surface Ag Result Negative (Negative); Hepatitis C Virus Ab Quant 0.08 Index; Hepatitis C Virus Ab Result Negative (Negative)
[2017-09-29] MEDS ORDERED: cefTRIAXone 1,000 MG VIAL IV SCH (09:08)
[2017-09-29] MEDS: cefTRIAXone 1,000 MG in SYRINGE 1 EACH IV SCH (09:36)
[2017-09-29] MEDS: PANTOPRAZOLE 40 MG TABLET PO SCH (09:37)
[2017-09-29] MEDS: ISOSORBIDE MONONITRATE 30 MG TABLET PO SCH (09:37)
[2017-09-29] MEDS: SODIUM BICARBONATE 650 MG TABLET PO SCH ×3 (09:37→22:01)
[2017-09-29] MEDS: CARVEDILOL 3.125 MG TABLET PO SCH ×2 (09:37→22:00)
[2017-09-29] MEDS: hydrALAZINE 10 MG TABLET PO SCH ×3 (09:37→22:00)
[2017-09-29] MEDS: cefTRIAXone 1,000 MG VIAL IM SCH (09:46)
[2017-09-29] MEDS: FUROSEMIDE 40 MG/4 ML VIAL IV SCH (12:43)
[2017-09-29] MEDS: CITALOPRAM 20 MG TABLET PO SCH (22:00)
[2017-09-29] MEDS: ATORVASTATIN 40 MG TABLET PO SCH (22:01)
[2017-09-30 06:29] LABS: Basophils % 0.4 % (0.0-0.8); Eosinophils # 0.5 10*3/uL (0.0-0.87); Eosinophils % 6.5 % (0.00-10.9); Hematocrit 25.4 VOL% (42.0-52.0); Hemoglobin 8.6 GM/DL (14.0-18.0); Immature Granulocytes Absolute 0.08 #; Lymphocytes # 0.8 10*3/uL (1.4-4.0); Lymphocytes % 10.3 % (21.2-54.2); Mean Corpuscular HGB Conc 33.9 GM/DL (32-36); Mean Corpuscular Hemoglobin 30 PG (27-34); Mean Corpuscular Volume 87.9 FL (87-102); Mean Platelet Volume 10.7 FL (9.6-12.0); Monocytes # 0.6 10*3/uL (0.11-0.8); Monocytes % 7.9 % (1.7-12.7); Neutrophils # 5.9 10*3/uL (1.4-7.4); Neutrophils % 73.9 % (38.7-73.9); Platelet Count 297 T/CUMM (130-400); Red Blood Count 2.89 MC/CUMM (3.8-5.5); Red Cell Distribution Width 16.1 % (9.3-17.3)
[2017-09-30 07:04] LABS: Calcium 8.2 MG/DL (8.5-10.1); Magnesium 2.1 MG/DL (1.8-2.4); Osmolality,Calculated 296.1 MOS/KG (273-304); Potassium 4.5 MMOL/L (3.5-5.1)
[2017-09-30] MEDS ORDERED: BISACODYL 10 MG SUPP RECTAL PRN (07:47)
[2017-09-30] MEDS: cefTRIAXone 1,000 MG in SYRINGE 1 EACH IV SCH (08:47)
[2017-09-30] MEDS: FUROSEMIDE 40 MG/4 ML VIAL IV SCH (08:47)
[2017-09-30] MEDS: ISOSORBIDE MONONITRATE 30 MG TABLET PO SCH (08:48)
[2017-09-30] MEDS: hydrALAZINE 10 MG TABLET PO SCH ×3 (08:48→21:15)
[2017-09-30] MEDS: CARVEDILOL 3.125 MG TABLET PO SCH ×2 (08:48→21:15)
[2017-09-30] MEDS: PANTOPRAZOLE 40 MG TABLET PO SCH (08:48)
[2017-09-30] MEDS: SODIUM BICARBONATE 650 MG TABLET PO SCH ×3 (08:48→21:15)
[2017-09-30] MEDS: ATORVASTATIN 40 MG TABLET PO SCH (21:15)
[2017-09-30] MEDS: CITALOPRAM 20 MG TABLET PO SCH (21:15)
[2017-10-01 04:54] LABS: Basophils % 0.4 % (0.0-0.8); Eosinophils # 0.4 10*3/uL (0.0-0.87); Eosinophils % 5.4 % (0.00-10.9); Hemoglobin 8.5 GM/DL (14.0-18.0); Immature Granulocytes % 0.4 %; Immature Granulocytes Absolute 0.03 #; Lymphocytes # 0.8 10*3/uL (1.4-4.0); Lymphocytes % 10.4 % (21.2-54.2); Mean Corpuscular Hemoglobin 30 PG (27-34); Mean Corpuscular Volume 87.1 FL (87-102); Mean Platelet Volume 10.7 FL (9.6-12.0); Monocytes # 0.5 10*3/uL (0.11-0.8); Monocytes % 6.5 % (1.7-12.7); Neutrophils # 5.8 10*3/uL (1.4-7.4); Neutrophils % 76.9 % (38.7-73.9); Platelet Count 317 T/CUMM (130-400); Red Blood Count 2.87 MC/CUMM (3.8-5.5); Red Cell Distribution Width 15.9 % (9.3-17.3); White Blood Count 7.6 T/CUMM (4-12)
[2017-10-01 05:30] LABS: Calcium 8.4 MG/DL (8.5-10.1); Magnesium 2.1 MG/DL (1.8-2.4); Potassium 4.3 MMOL/L (3.5-5.1)
[2017-10-01] MEDS ORDERED: PROMETHAZINE 25 MG/1 ML VIAL IM ONE ×2 (06:30→07:00)
[2017-10-01] MEDS ORDERED: PROMETHAZINE 25 MG/1 ML VIAL ONE (06:51)
[2017-10-01] MEDS ORDERED: MIDAZOLAM 2 MG/2 ML VIAL ONE (06:57)
[2017-10-01] MEDS ORDERED: MIDAZOLAM 2 MG/2 ML VIAL IV ONE ×2 (07:00→07:42)
[2017-10-01] MEDS ORDERED: LIDOCAINE 1% 20 ML VIAL MISC INJ ONE (07:00)
[2017-10-01] MEDS ORDERED: LIDOCAINE 2% 20 ML VIAL RESP TX ONE (07:00)
[2017-10-01] MEDS ORDERED: ETOMIDATE 40 MG/20 ML VIAL IV ONE (09:14)
[2017-10-01] MEDS: hydrALAZINE 10 MG TABLET PO SCH ×3 (10:54→23:07)
[2017-10-01] MEDS: CARVEDILOL 3.125 MG TABLET PO SCH ×2 (10:54→21:05)
[2017-10-01] MEDS: SODIUM BICARBONATE 650 MG TABLET PO SCH ×3 (10:55→21:05)
[2017-10-01] MEDS: cefTRIAXone 1,000 MG in SYRINGE 1 EACH IV SCH (11:30)
[2017-10-01] MEDS: ISOSORBIDE MONONITRATE 30 MG TABLET PO SCH (11:37)
[2017-10-01] MEDS: PANTOPRAZOLE 40 MG TABLET PO SCH ×2 (11:38→15:23)
[2017-10-01] MEDS: ATORVASTATIN 40 MG TABLET PO SCH (21:05)
[2017-10-01] MEDS: CITALOPRAM 20 MG TABLET PO SCH (21:05)
[2017-10-01] MEDS ORDERED: ACETAMINOPHEN 325 MG TABLET PO PRN (23:38)
[2017-10-02] MEDS: methylPREDNISolone SOD SUC 40 MG/1 ML VIAL IV SCH ×2 (03:08→12:48)
[2017-10-02] MEDS: BENZONATATE 100 MG CAPSULE PO PRN (03:08)
[2017-10-02 05:53] LABS: Basophils % 0.6 % (0.0-0.8); Eosinophils # 0.4 10*3/uL (0.0-0.87); Eosinophils % 5.5 % (0.00-10.9); Hemoglobin 8.5 GM/DL (14.0-18.0); Immature Granulocytes % 0.6 %; Immature Granulocytes Absolute 0.04 #; Lymphocytes # 0.5 10*3/uL (1.4-4.0); Mean Corpuscular HGB Conc 32.7 GM/DL (32-36); Mean Corpuscular Hemoglobin 29 PG (27-34); Mean Corpuscular Volume 89.7 FL (87-102); Mean Platelet Volume 10.5 FL (9.6-12.0); Monocytes # 0.3 10*3/uL (0.11-0.8); Monocytes % 4.9 % (1.7-12.7); Neutrophils # 5.7 10*3/uL (1.4-7.4); Neutrophils % 81.4 % (38.7-73.9); Platelet Count 307 T/CUMM (130-400); Red Cell Distribution Width 15.8 % (9.3-17.3)
[2017-10-02 06:20] LABS: Albumin 1.9 G/DL (3.4-5.0); Bilirubin,Total 0.7 MG/DL (0.2-1.0); Calcium 8.2 MG/DL (8.5-10.1); Potassium 4.6 MMOL/L (3.5-5.1); Total Protein 5.5 G/DL (6.4-8.3)
[2017-10-02] MEDS ORDERED: ALBUTEROL/IPRATROPIUM 3 ML NEB RESP TX SCH (07:00)
[2017-10-02 07:07] LABS: % Iron Saturation 14.8 % (18-50)
[2017-10-02] MEDS ORDERED: SODIUM CHLORIDE 0.9% 1,000 ML IV PRN (08:00)
[2017-10-02] MEDS: ISOSORBIDE MONONITRATE 30 MG TABLET PO SCH (08:19)
[2017-10-02] MEDS: SODIUM BICARBONATE 650 MG TABLET PO SCH (08:19)
[2017-10-02] MEDS: hydrALAZINE 10 MG TABLET PO SCH ×3 (08:20→21:04)
[2017-10-02] MEDS: CARVEDILOL 3.125 MG TABLET PO SCH ×2 (08:20→21:04)
[2017-10-02] MEDS: cefTRIAXone 1,000 MG in SYRINGE 1 EACH IV SCH (08:20)
[2017-10-02] MEDS: PANTOPRAZOLE 40 MG TABLET PO SCH (08:20)
[2017-10-02] MEDS ORDERED: ASPIRIN EC 81 MG TABLET PO SCH (09:00)
[2017-10-02 11:01] LABS: Factor V Leiden (R506Q) Mutati Negative (Negative)
[2017-10-02 11:01] LABS: Factor V Leiden (R506Q) Mutati Negative (Negative)
[2017-10-02] MEDS: POLYETHYLENE GLYCOL POWDER 17 GM PACK PO SCH (12:51)
[2017-10-02] MEDS: ALBUTEROL/IPRATROPIUM 3 ML NEB RESP TX SCH ×2 (13:45→19:49)
[2017-10-02 14:40] LABS: Glomerular Basement Membrane A < 0.2 U; Myeloperoxidase Antibody 1.9 U
[2017-10-02] MEDS ORDERED: POLYETHYLENE GLYCOL POWDER 17 GM PACK PO ONE (19:00)
[2017-10-02] MEDS: ATORVASTATIN 40 MG TABLET PO SCH (21:04)
[2017-10-02] MEDS: CITALOPRAM 20 MG TABLET PO SCH (21:04)
[2017-10-02 21:52] LABS: Hematocrit 27.7 VOL% (42.0-52.0)
[2017-10-02] MEDS: ALBUMIN 25% 25 GM in PREMIX 1 EACH IV SCH (22:19)
[2017-10-03] MEDS: ALBUTEROL/IPRATROPIUM 3 ML NEB RESP TX SCH ×4 (00:25→20:27)
[2017-10-03] MEDS: methylPREDNISolone SOD SUC 40 MG/1 ML VIAL IV SCH (01:07)
[2017-10-03 04:43] LABS: Basophils % 0.1 % (0.0-0.8); Hematocrit 25.7 VOL% (42.0-52.0); Hemoglobin 8.7 GM/DL (14.0-18.0); Immature Granulocytes % 0.5 %; Immature Granulocytes Absolute 0.05 #; Lymphocytes # 0.4 10*3/uL (1.4-4.0); Lymphocytes % 4.5 % (21.2-54.2); Mean Corpuscular HGB Conc 33.9 GM/DL (32-36); Mean Corpuscular Hemoglobin 30 PG (27-34); Mean Platelet Volume 10.5 FL (9.6-12.0); Monocytes # 0.4 10*3/uL (0.11-0.8); Monocytes % 4.1 % (1.7-12.7); Neutrophils # 8.7 10*3/uL (1.4-7.4); Neutrophils % 90.8 % (38.7-73.9); Platelet Count 281 T/CUMM (130-400); Red Blood Count 2.92 MC/CUMM (3.8-5.5); Red Cell Distribution Width 15.1 % (9.3-17.3); White Blood Count 9.6 T/CUMM (4-12)
[2017-10-03 05:10] LABS: Albumin 2.4 G/DL (3.4-5.0); Calcium 8.5 MG/DL (8.5-10.1); Osmolality,Calculated 309.8 MOS/KG (273-304); Potassium 5.1 MMOL/L (3.5-5.1); Total Protein 5.7 G/DL (6.4-8.3)
[2017-10-03 05:18] LABS: Band Neutrophils 1 % (0-10); Hypochromasia 1+; Lymphocytes 3 % (20-55); Segmented Neutrophils 95 % (50-85); Total Cells Counted 100
[2017-10-03 05:20] LABS: Acanthocytes Few; Microcytosis 1+; Ovalocytes Slight
[2017-10-03 05:30] LABS: Calcium 8.7 MG/DL (8.5-10.1); Magnesium 2.3 MG/DL (1.8-2.4); Osmolality,Calculated 310.8 MOS/KG (273-304); Potassium 5.1 MMOL/L (3.5-5.1)
[2017-10-03] MEDS: ALBUMIN 25% 25 GM in PREMIX 1 EACH IV SCH ×3 (05:31→20:56)
[2017-10-03] MEDS: cefTRIAXone 1,000 MG in SYRINGE 1 EACH IV SCH (08:51)
[2017-10-03] MEDS: PANTOPRAZOLE 40 MG TABLET PO SCH (08:52)
[2017-10-03] MEDS: ISOSORBIDE MONONITRATE 30 MG TABLET PO SCH (08:52)
[2017-10-03] MEDS: POLYETHYLENE GLYCOL POWDER 17 GM PACK PO SCH (08:52)
[2017-10-03] MEDS: CARVEDILOL 3.125 MG TABLET PO SCH ×2 (08:52→20:56)
[2017-10-03] MEDS: hydrALAZINE 10 MG TABLET PO SCH ×3 (08:52→20:56)
[2017-10-03] MEDS: methylPREDNISolone SOD SUC 125 MG/2 ML VIAL IV SCH (12:13)
[2017-10-03 17:21] LABS: Factor V Leiden (R506Q) Mutati Negative (Negative)
[2017-10-03 17:21] LABS: Factor V Leiden (R506Q) Mutati Negative (Negative)
[2017-10-03] MEDS: CITALOPRAM 20 MG TABLET PO SCH (20:56)
[2017-10-03] MEDS: ATORVASTATIN 40 MG TABLET PO SCH (20:56)
[2017-10-03] MEDS: BENZONATATE 100 MG CAPSULE PO PRN (23:41)
[2017-10-04] MEDS ORDERED: DIAZEPAM 5 MG TABLET PO ONE (00:01)
[2017-10-04] MEDS: ALBUTEROL/IPRATROPIUM 3 ML NEB RESP TX SCH ×4 (02:00→20:04)
[2017-10-04] MEDS: DEXTROMETHORPHAN ER 6 MG/ML 90 ML/BOTTLE PO PRN ×2 (04:40→11:45)
[2017-10-04] MEDS: ALBUMIN 25% 25 GM in PREMIX 1 EACH IV SCH ×3 (04:40→21:24)
[2017-10-04 05:47] LABS: INR 1.2; PT Patient Result 12.9 SECS; Partial Thromboplastin Time 30.3 SECS (0-40)
[2017-10-04 06:07] LABS: Calcium 8.9 MG/DL (8.5-10.1); Magnesium 2.2 MG/DL (1.8-2.4); Osmolality,Calculated 312.8 MOS/KG (273-304); Potassium 5.4 MMOL/L (3.5-5.1)
[2017-10-04 07:47] LABS: Hematocrit 23.7 VOL% (42.0-52.0); Immature Granulocytes % 0.7 %; Immature Granulocytes Absolute 0.07 #; Lymphocytes # 0.5 10*3/uL (1.4-4.0); Mean Corpuscular HGB Conc 32.5 GM/DL (32-36); Mean Corpuscular Hemoglobin 30 PG (27-34); Mean Corpuscular Volume 91.5 FL (87-102); Mean Platelet Volume 10.6 FL (9.6-12.0); Monocytes # 0.4 10*3/uL (0.11-0.8); Monocytes % 4.2 % (1.7-12.7); Neutrophils # 9.1 10*3/uL (1.4-7.4); Neutrophils % 90.1 % (38.7-73.9); Platelet Count 236 T/CUMM (130-400); Red Blood Count 2.59 MC/CUMM (3.8-5.5); Red Cell Distribution Width 15.5 % (9.3-17.3); White Blood Count 10.1 T/CUMM (4-12)
[2017-10-04 07:53] LABS: Hemoglobin 7.7 GM/DL (14.0-18.0)
[2017-10-04] MEDS ORDERED: DIAZEPAM 5 MG TABLET ONE (08:41)
[2017-10-04] MEDS: cefTRIAXone 1,000 MG in SYRINGE 1 EACH IV SCH (10:11)
[2017-10-04] MEDS: methylPREDNISolone SOD SUC 125 MG/2 ML VIAL IV SCH (10:12)
[2017-10-04] MEDS: hydrALAZINE 10 MG TABLET PO SCH ×3 (11:48→21:23)
[2017-10-04] MEDS: CARVEDILOL 3.125 MG TABLET PO SCH ×2 (11:48→21:23)
[2017-10-04] MEDS: PANTOPRAZOLE 40 MG TABLET PO SCH (11:48)
[2017-10-04] MEDS: ISOSORBIDE MONONITRATE 30 MG TABLET PO SCH (11:48)
[2017-10-04] MEDS: POLYETHYLENE GLYCOL POWDER 17 GM PACK PO SCH (11:49)
[2017-10-04] MEDS: ATORVASTATIN 40 MG TABLET PO SCH (21:23)
[2017-10-04] MEDS: CITALOPRAM 20 MG TABLET PO SCH (21:23)
[2017-10-05] MEDS: ALBUTEROL/IPRATROPIUM 3 ML NEB RESP TX SCH ×5 (00:53→20:05)
[2017-10-05 03:36] LABS: Basophils % 0.1 % (0.0-0.8); Hematocrit 25.1 VOL% (42.0-52.0); Immature Granulocytes % 0.7 %; Immature Granulocytes Absolute 0.07 #; Lymphocytes # 0.6 10*3/uL (1.4-4.0); Lymphocytes % 5.7 % (21.2-54.2); Mean Corpuscular HGB Conc 31.9 GM/DL (32-36); Mean Corpuscular Hemoglobin 30 PG (27-34); Mean Platelet Volume 11.2 FL (9.6-12.0); Monocytes # 0.4 10*3/uL (0.11-0.8); Monocytes % 4.1 % (1.7-12.7); Neutrophils % 89.4 % (38.7-73.9); Platelet Count 297 T/CUMM (130-400); Red Cell Distribution Width 15.6 % (9.3-17.3); White Blood Count 10.1 T/CUMM (4-12)
[2017-10-05 04:05] LABS: Albumin 3.9 G/DL (3.4-5.0); Calcium 9.3 MG/DL (8.5-10.1); Calcium 9.8 MG/DL (8.5-10.1); Magnesium 2.2 MG/DL (1.8-2.4); Osmolality,Calculated 313.1 MOS/KG (273-304); Potassium 5.8 MMOL/L (3.5-5.1); Potassium 5.9 MMOL/L (3.5-5.1); Total Protein 6.4 G/DL (6.4-8.3)
[2017-10-05] MEDS: ALBUMIN 25% 25 GM in PREMIX 1 EACH IV SCH ×3 (05:14→20:52)
[2017-10-05] MEDS: hydrALAZINE 10 MG TABLET PO SCH ×3 (09:48→20:58)
[2017-10-05] MEDS: PANTOPRAZOLE 40 MG TABLET PO SCH (09:48)
[2017-10-05] MEDS: cefTRIAXone 1,000 MG in SYRINGE 1 EACH IV SCH (09:48)
[2017-10-05] MEDS: ISOSORBIDE MONONITRATE 30 MG TABLET PO SCH (09:48)
[2017-10-05] MEDS: POLYETHYLENE GLYCOL POWDER 17 GM PACK PO SCH (09:48)
[2017-10-05] MEDS: CARVEDILOL 3.125 MG TABLET PO SCH ×2 (09:48→20:58)
[2017-10-05] MEDS: methylPREDNISolone SOD SUC 125 MG/2 ML VIAL IV SCH (09:56)
[2017-10-05] MEDS: CITALOPRAM 20 MG TABLET PO SCH (20:58)
[2017-10-05] MEDS: ATORVASTATIN 40 MG TABLET PO SCH (20:58)
[2017-10-05] MEDS: CLORAZEPATE 3.75 MG TABLET PO PRN (21:43)
[2017-10-06] MEDS: ALBUTEROL/IPRATROPIUM 3 ML NEB RESP TX SCH ×3 (02:09→13:30)
[2017-10-06] MEDS: BENZONATATE 100 MG CAPSULE PO PRN (02:39)
[2017-10-06 05:47] LABS: Basophils % 0.1 % (0.0-0.8); Hematocrit 23.4 VOL% (42.0-52.0); Hemoglobin 7.8 GM/DL (14.0-18.0); Immature Granulocytes % 1.2 %; Immature Granulocytes Absolute 0.12 #; Lymphocytes # 0.5 10*3/uL (1.4-4.0); Lymphocytes % 5.1 % (21.2-54.2); Mean Corpuscular HGB Conc 33.3 GM/DL (32-36); Mean Corpuscular Hemoglobin 30 PG (27-34); Mean Corpuscular Volume 90.3 FL (87-102); Mean Platelet Volume 11.7 FL (9.6-12.0); Monocytes # 0.5 10*3/uL (0.11-0.8); Monocytes % 4.6 % (1.7-12.7); Neutrophils # 8.8 10*3/uL (1.4-7.4); Platelet Count 292 T/CUMM (130-400); Red Blood Count 2.59 MC/CUMM (3.8-5.5); Red Cell Distribution Width 15.7 % (9.3-17.3); White Blood Count 9.9 T/CUMM (4-12)
[2017-10-06] MEDS: ALBUMIN 25% 25 GM in PREMIX 1 EACH IV SCH (05:48)
[2017-10-06 06:11] LABS: Calcium 9.6 MG/DL (8.5-10.1); Magnesium 2.2 MG/DL (1.8-2.4); Potassium 5.7 MMOL/L (3.5-5.1)
[2017-10-06] MEDS: CARVEDILOL 3.125 MG TABLET PO SCH (08:41)
[2017-10-06] MEDS: hydrALAZINE 10 MG TABLET PO SCH ×2 (08:41→15:12)
[2017-10-06] MEDS: PANTOPRAZOLE 40 MG TABLET PO SCH (08:41)
[2017-10-06] MEDS: ISOSORBIDE MONONITRATE 30 MG TABLET PO SCH (08:41)
[2017-10-06] MEDS: cefTRIAXone 1,000 MG in SYRINGE 1 EACH IV SCH (08:42)
[2017-10-06] MEDS: methylPREDNISolone SOD SUC 125 MG/2 ML VIAL IV SCH (08:42)
[2017-10-06] MEDS: POLYETHYLENE GLYCOL POWDER 17 GM PACK PO SCH (08:42)
[2017-10-06] MEDS ORDERED: SODIUM CHLORIDE 0.9% 1,000 ML IV PRN ×2 (09:41→10:42)
[2017-10-06] MEDS ORDERED: FUROSEMIDE 100 MG/10 ML VIAL IV ONE (11:02)
[2017-10-06 16:18] VITALS: BP 138/68
[2017-10-06] MEDS ORDERED: ZALEPLON 5 MG CAPSULE PO SCH (21:00)
[2017-10-11 10:55] LABS: c-ANCA Negative (Negative); p-ANCA Positive (Negative)
== END 2017-10-06 19:41 | disposition hospice, home (50) | DRG 280 ==
LOC: N.ED 09:26 → N.EDINP 12:10 → N.CC 15:44 → N.TELEN 09-29 17:04
PROVIDERS: ADMIT Family Medicine; ATTEND Family Medicine
PROC: BRONCHB (2017-10-01 07:05)

== ENCOUNTER 2017-11-21 12:18 | Inpatient (IN) ==
[2017-11-21] MEDS ORDERED: MAGNESIUM HYDROXIDE SUSP 30 ML UDCUP PO PRN (13:45)
[2017-11-21] MEDS ORDERED: traMADol 50 MG TABLET PO PRN (13:45)
[2017-11-21] MEDS ORDERED: PROMETHAZINE 25 MG TABLET PO PRN (13:45)
[2017-11-21] MEDS ORDERED: LACTULOSE 20 GM/30 ML UDCUP PO PRN (13:45)
[2017-11-21] MEDS ORDERED: ONDANSETRON 4 MG/2 ML VIAL IV PRN (13:45)
[2017-11-21] MEDS ORDERED: ACETAMINOPHEN 325 MG TABLET PO PRN (13:45)
[2017-11-21] MEDS ORDERED: SODIUM CHLORIDE 0.9% 1,000 ML IV PRN (13:53)
[2017-11-21] MEDS ORDERED: diphenhydrAMINE CAP 25 MG CAPSULE PO PRN (13:53)
[2017-11-21 15:02] LABS: Hematocrit 26.3 VOL% (42.0-52.0); Hemoglobin 8.4 GM/DL (14.0-18.0); Immature Granulocytes % 0.7 %; Immature Granulocytes Absolute 0.03 #; Lymphocytes # 0.4 10*3/uL (1.4-4.0); Lymphocytes % 9.1 % (21.2-54.2); Mean Corpuscular HGB Conc 31.9 GM/DL (32-36); Mean Corpuscular Hemoglobin 33 PG (27-34); Mean Corpuscular Volume 103.5 FL (87-102); Mean Platelet Volume 10.6 FL (9.6-12.0); Monocytes # 0.2 10*3/uL (0.11-0.8); Monocytes % 4.2 % (1.7-12.7); Neutrophils # 3.9 10*3/uL (1.4-7.4); Platelet Count 226 T/CUMM (130-400); Red Blood Count 2.54 MC/CUMM (3.8-5.5); Red Cell Distribution Width 21.8 % (9.3-17.3); White Blood Count 4.5 T/CUMM (4-12)
[2017-11-21 15:25] LABS: Albumin 2.7 G/DL (3.4-5.0); Bilirubin,Total 0.5 MG/DL (0.2-1.0); Calcium 8.5 MG/DL (8.5-10.1); Magnesium 1.8 MG/DL (1.8-2.4); Osmolality,Calculated 289.3 MOS/KG (273-304); Potassium 3.8 MMOL/L (3.5-5.1); Total Protein 5.9 G/DL (6.4-8.3)
[2017-11-21 15:30] LABS: % Iron Saturation 20.6 % (18-50); Ferritin 343.4 ng/ml (26-388)
[2017-11-21 16:41] LABS: INR 1.1; PT Patient Result 11.3 SECS; Partial Thromboplastin Time 25.1 SECS (0-40)
[2017-11-21] MEDS ORDERED: NITROGLYCERIN SL 0.4 MG TABLET SL PRN (17:22)
[2017-11-21 18:36] LABS: Troponin I Only 0.088 NG/ML (0.00-0.045)
[2017-11-21] MEDS: DOCUSATE SODIUM 100 MG CAPSULE PO SCH (20:16)
[2017-11-21] MEDS: ATORVASTATIN 40 MG TABLET PO SCH (20:16)
[2017-11-21] MEDS: FAMOTIDINE 20 MG TABLET PO SCH (20:16)
[2017-11-21] MEDS: CITALOPRAM 20 MG TABLET PO SCH (20:16)
[2017-11-21 20:42] LABS: Troponin I Only 0.091 NG/ML (0.00-0.045)
[2017-11-21 23:39] LABS: Apearance,Urine Slightly Hazy (Clear); Bilirubin,Urine Negative (Negative); Blood, Urine Moderate mg/dL (Negative); Glucose,Urine (UA) 50 mg/dL (Negative); Ketones,Urine Negative (Negative); Mucus,Urine Occasional /LPF (Occasional); Nitrite,Urine Negative (Negative); Protein,Urine 100 MG/DL; RBC,Urine 24 /HPF (0-4); Squamous Epithelial Cell,Urine Occasional /HPF (0-10); Urine Color Yellow (Yellow); Urine Specific Gravity 1.014 (1.001-1.035); WBC,Urine 2 /HPF (0-6)
[2017-11-22] MEDS ORDERED: ALBUTEROL 2.5 MG/3 ML NEB RESP TX PRN (01:11)
[2017-11-22 01:48] LABS: Basophils % 0.2 % (0.0-0.8); Hematocrit 24.4 VOL% (42.0-52.0); Hemoglobin 8.1 GM/DL (14.0-18.0); Immature Granulocytes % 0.8 %; Immature Granulocytes Absolute 0.04 #; Lymphocytes # 1.1 10*3/uL (1.4-4.0); Mean Corpuscular HGB Conc 33.2 GM/DL (32-36); Mean Corpuscular Hemoglobin 34 PG (27-34); Mean Corpuscular Volume 101.2 FL (87-102); Mean Platelet Volume 10.7 FL (9.6-12.0); Monocytes # 0.5 10*3/uL (0.11-0.8); Monocytes % 10.1 % (1.7-12.7); NRBC # 0.02 10*3/uL; Neutrophils # 3.6 10*3/uL (1.4-7.4); Neutrophils % 68.9 % (38.7-73.9); Platelet Count 204 T/CUMM (130-400); Red Blood Count 2.41 MC/CUMM (3.8-5.5); Red Cell Distribution Width 21.6 % (9.3-17.3); White Blood Count 5.3 T/CUMM (4-12)
[2017-11-22 02:05] LABS: Calcium 8.4 MG/DL (8.5-10.1); Magnesium 1.9 MG/DL (1.8-2.4); Osmolality,Calculated 288.3 MOS/KG (273-304); Potassium 3.8 MMOL/L (3.5-5.1)
[2017-11-22 02:08] LABS: Risk Ratio 1.42; VLDL CHOLESTEROL 10.8 MG/DL
[2017-11-22 02:11] LABS: Calcium 8.5 MG/DL (8.5-10.1); Osmolality,Calculated 288.3 MOS/KG (273-304); Potassium 3.8 MMOL/L (3.5-5.1)
[2017-11-22] MEDS: ALBUTEROL/IPRATROPIUM 3 ML NEB RESP TX SCH ×3 (06:59→20:28)
[2017-11-22] MEDS ORDERED: EZETIMIBE 10 MG TABLET PO SCH (09:00)
[2017-11-22] MEDS ORDERED: predniSONE 10 MG TABLET PO SCH (09:00)
[2017-11-22] MEDS: TAMSULOSIN 0.4 MG CAPSULE PO SCH (09:04)
[2017-11-22] MEDS: ASPIRIN EC 81 MG TABLET PO SCH (09:04)
[2017-11-22] MEDS: FAMOTIDINE 20 MG TABLET PO SCH ×2 (09:04→21:00)
[2017-11-22] MEDS: DOCUSATE SODIUM 100 MG CAPSULE PO SCH ×2 (09:04→21:00)
[2017-11-22] MEDS ORDERED: SODIUM CHLORIDE 0.9% 1,000 ML IV PRN (14:12)
[2017-11-22] MEDS: CITALOPRAM 20 MG TABLET PO SCH (21:00)
[2017-11-22] MEDS: ATORVASTATIN 40 MG TABLET PO SCH (21:00)
[2017-11-22] MEDS: FUROSEMIDE 40 MG/4 ML VIAL IV SCH (21:00)
[2017-11-23] MEDS: ALBUTEROL/IPRATROPIUM 3 ML NEB RESP TX SCH ×4 (00:31→19:03)
[2017-11-23 06:56] LABS: Basophils % 0.5 % (0.0-0.8); Hematocrit 28.3 VOL% (42.0-52.0); Hemoglobin 9.4 GM/DL (14.0-18.0); Immature Granulocytes % 0.8 %; Immature Granulocytes Absolute 0.05 #; Lymphocytes # 0.8 10*3/uL (1.4-4.0); Lymphocytes % 13.2 % (21.2-54.2); Mean Corpuscular HGB Conc 33.2 GM/DL (32-36); Mean Corpuscular Hemoglobin 33 PG (27-34); Mean Corpuscular Volume 98.6 FL (87-102); Mean Platelet Volume 10.1 FL (9.6-12.0); Monocytes # 0.6 10*3/uL (0.11-0.8); Monocytes % 9.3 % (1.7-12.7); NRBC # 0.02 10*3/uL; Neutrophils # 4.6 10*3/uL (1.4-7.4); Neutrophils % 76.2 % (38.7-73.9); Platelet Count 205 T/CUMM (130-400); Red Blood Count 2.87 MC/CUMM (3.8-5.5); Red Cell Distribution Width 22.8 % (9.3-17.3)
[2017-11-23 07:25] LABS: Calcium 8.6 MG/DL (8.5-10.1); Magnesium 1.9 MG/DL (1.8-2.4); Potassium 3.6 MMOL/L (3.5-5.1)
[2017-11-23 07:32] LABS: Macrocytosis 1+
[2017-11-23 07:33] LABS: Burr Cells Slight; Hypochromasia 1+; Polychromasia Slight
[2017-11-23] MEDS: predniSONE 20 MG TABLET PO SCH (09:45)
[2017-11-23] MEDS: FAMOTIDINE 20 MG TABLET PO SCH ×2 (09:45→20:49)
[2017-11-23] MEDS: DOCUSATE SODIUM 100 MG CAPSULE PO SCH ×2 (09:45→20:49)
[2017-11-23] MEDS: FUROSEMIDE 40 MG/4 ML VIAL IV SCH ×2 (09:46→15:35)
[2017-11-23] MEDS: ASPIRIN EC 81 MG TABLET PO SCH (09:46)
[2017-11-23] MEDS: TAMSULOSIN 0.4 MG CAPSULE PO SCH (09:46)
[2017-11-23] MEDS: PIPERACILLIN/TAZOBACTAM 3,375 MG in SODIUM CHLORIDE 0.9% 100 ML IV SCH ×2 (12:00→23:31)
[2017-11-23] MEDS: CARVEDILOL 3.125 MG TABLET PO SCH ×2 (12:00→20:49)
[2017-11-23 13:18] LABS: Lymphocytes,Pleural Fluid 48 %; Monocytes,Pleural Fluid 14 %; Neutrophils,Pleural Fluid 38 %
[2017-11-23 13:19] LABS: RBC,Pleural Fluid 301 T/CUMM
[2017-11-23 13:31] LABS: LDH,Body Fluid 63 U/L; Total Protein,Body Fluid < 1.0 G/DL
[2017-11-23] MEDS ORDERED: ZINC OXIDE PASTE 113 GM TUBE TOP PRN (14:52)
[2017-11-23 17:45] LABS: Creatinine 24 Hr Urine Result 0.42 G/24HR (0.95-2.49)
[2017-11-23 17:48] LABS: Creatinine Clearance Urine 9.56 ML/MIN (70-135)
[2017-11-23 18:42] LABS: Creatinine 24 Hr Urine Result 0.42 G/24HR (0.95-2.49)
[2017-11-23] MEDS ORDERED: FLUCONAZOLE INJ 400 MG in PREMIX 1 EACH IV ONE (20:00)
[2017-11-23] MEDS: ATORVASTATIN 40 MG TABLET PO SCH (20:49)
[2017-11-24] MEDS: ALBUTEROL/IPRATROPIUM 3 ML NEB RESP TX SCH ×4 (00:50→18:40)
[2017-11-24 06:37] LABS: Basophils % 0.3 % (0.0-0.8); Hematocrit 31.3 VOL% (42.0-52.0); Hemoglobin 10.2 GM/DL (14.0-18.0); Immature Granulocytes % 0.5 %; Immature Granulocytes Absolute 0.03 #; Lymphocytes # 0.8 10*3/uL (1.4-4.0); Lymphocytes % 12.2 % (21.2-54.2); Mean Corpuscular HGB Conc 32.6 GM/DL (32-36); Mean Corpuscular Hemoglobin 33 PG (27-34); Mean Corpuscular Volume 100.6 FL (87-102); Mean Platelet Volume 10.4 FL (9.6-12.0); Monocytes # 0.4 10*3/uL (0.11-0.8); Monocytes % 6.6 % (1.7-12.7); Neutrophils # 5.3 10*3/uL (1.4-7.4); Neutrophils % 80.4 % (38.7-73.9); Platelet Count 223 T/CUMM (130-400); Red Blood Count 3.11 MC/CUMM (3.8-5.5); Red Cell Distribution Width 22.4 % (9.3-17.3); White Blood Count 6.6 T/CUMM (4-12)
[2017-11-24 07:01] LABS: Hypochromasia 1+; Platelet Estimate Normal; Polychromasia Few
[2017-11-24 07:04] LABS: Calcium 8.9 MG/DL (8.5-10.1); Potassium 4.8 MMOL/L (3.5-5.1)
[2017-11-24] MEDS: FAMOTIDINE 20 MG TABLET PO SCH ×2 (09:00→20:55)
[2017-11-24] MEDS: DOCUSATE SODIUM 100 MG CAPSULE PO SCH ×2 (09:03→20:55)
[2017-11-24] MEDS: ASPIRIN EC 81 MG TABLET PO SCH (09:04)
[2017-11-24] MEDS: CARVEDILOL 3.125 MG TABLET PO SCH ×2 (09:04→20:55)
[2017-11-24] MEDS: predniSONE 20 MG TABLET PO SCH (09:05)
[2017-11-24] MEDS: TAMSULOSIN 0.4 MG CAPSULE PO SCH (11:10)
[2017-11-24] MEDS: PIPERACILLIN/TAZOBACTAM 3,375 MG in SODIUM CHLORIDE 0.9% 100 ML IV SCH ×2 (11:11→21:59)
[2017-11-24 12:35] LABS: Immunoglobulin A 207 MG/DL (70-400); Immunoglobulin G 912 MG/DL (700-1600); Immunoglobulin M 77 MG/DL (40-230)
[2017-11-24] MEDS: FLUCONAZOLE INJ 200 MG in PREMIX 1 EACH IV SCH (20:50)
[2017-11-24] MEDS: ATORVASTATIN 40 MG TABLET PO SCH (20:55)
[2017-11-24] MEDS: FUROSEMIDE 40 MG/4 ML VIAL IV SCH ×2 (20:58→20:59)
[2017-11-25] MEDS: ALBUTEROL/IPRATROPIUM 3 ML NEB RESP TX SCH ×4 (00:14→15:26)
[2017-11-25 02:09] LABS: Basophils % 0.2 % (0.0-0.8); Hematocrit 31.3 VOL% (42.0-52.0); Hemoglobin 9.8 GM/DL (14.0-18.0); Immature Granulocytes % 0.6 %; Immature Granulocytes Absolute 0.04 #; Lymphocytes # 0.6 10*3/uL (1.4-4.0); Lymphocytes % 8.9 % (21.2-54.2); Mean Corpuscular HGB Conc 31.3 GM/DL (32-36); Mean Corpuscular Hemoglobin 33 PG (27-34); Mean Corpuscular Volume 103.6 FL (87-102); Mean Platelet Volume 10.6 FL (9.6-12.0); Monocytes # 0.3 10*3/uL (0.11-0.8); Monocytes % 5.1 % (1.7-12.7); Neutrophils # 5.3 10*3/uL (1.4-7.4); Neutrophils % 85.2 % (38.7-73.9); Platelet Count 237 T/CUMM (130-400); Red Blood Count 3.02 MC/CUMM (3.8-5.5); Red Cell Distribution Width 21.8 % (9.3-17.3); White Blood Count 6.3 T/CUMM (4-12)
[2017-11-25 02:14] LABS: Calcium 8.6 MG/DL (8.5-10.1); Osmolality,Calculated 301.1 MOS/KG (273-304); Potassium 4.6 MMOL/L (3.5-5.1)
[2017-11-25] MEDS: SIMETHICONE CHEW 125 MG TABLET PO PRN (02:50)
[2017-11-25] MEDS: predniSONE 20 MG TABLET PO SCH (08:51)
[2017-11-25] MEDS: ASPIRIN EC 81 MG TABLET PO SCH (08:51)
[2017-11-25] MEDS: TAMSULOSIN 0.4 MG CAPSULE PO SCH (08:51)
[2017-11-25] MEDS: CARVEDILOL 3.125 MG TABLET PO SCH ×2 (08:51→21:10)
[2017-11-25] MEDS: DOCUSATE SODIUM 100 MG CAPSULE PO SCH ×2 (08:51→21:00)
[2017-11-25] MEDS: FAMOTIDINE 20 MG TABLET PO SCH ×2 (08:51→21:00)
[2017-11-25] MEDS: FUROSEMIDE 40 MG/4 ML VIAL IV SCH ×2 (08:51→18:07)
[2017-11-25] MEDS: PIPERACILLIN/TAZOBACTAM 3,375 MG in SODIUM CHLORIDE 0.9% 100 ML IV SCH ×2 (14:28→22:15)
[2017-11-25] MEDS: FLUCONAZOLE INJ 200 MG in PREMIX 1 EACH IV SCH (20:54)
[2017-11-25] MEDS: ATORVASTATIN 40 MG TABLET PO SCH (21:00)
[2017-11-26] MEDS: SIMETHICONE CHEW 125 MG TABLET PO PRN (00:45)
[2017-11-26] MEDS: ALBUTEROL/IPRATROPIUM 3 ML NEB RESP TX SCH ×4 (01:07→19:30)
[2017-11-26 06:47] LABS: Basophils % 0.2 % (0.0-0.8); Hematocrit 30.5 VOL% (42.0-52.0); Hemoglobin 9.8 GM/DL (14.0-18.0); Immature Granulocytes % 0.6 %; Immature Granulocytes Absolute 0.04 #; Lymphocytes % 14.5 % (21.2-54.2); Mean Corpuscular HGB Conc 32.1 GM/DL (32-36); Mean Corpuscular Hemoglobin 32 PG (27-34); Mean Corpuscular Volume 100.7 FL (87-102); Mean Platelet Volume 10.6 FL (9.6-12.0); Monocytes # 0.5 10*3/uL (0.11-0.8); Neutrophils # 5.1 10*3/uL (1.4-7.4); Neutrophils % 76.7 % (38.7-73.9); Platelet Count 218 T/CUMM (130-400); Red Blood Count 3.03 MC/CUMM (3.8-5.5); Red Cell Distribution Width 21.2 % (9.3-17.3); White Blood Count 6.6 T/CUMM (4-12)
[2017-11-26 07:38] LABS: Calcium 8.9 MG/DL (8.5-10.1); Magnesium 1.9 MG/DL (1.8-2.4); Potassium 3.8 MMOL/L (3.5-5.1)
[2017-11-26] MEDS: FUROSEMIDE 40 MG/4 ML VIAL IV SCH ×3 (08:35→22:16)
[2017-11-26] MEDS: ASPIRIN EC 81 MG TABLET PO SCH (08:48)
[2017-11-26] MEDS: DOCUSATE SODIUM 100 MG CAPSULE PO SCH ×2 (08:48→22:17)
[2017-11-26] MEDS: predniSONE 20 MG TABLET PO SCH (08:49)
[2017-11-26] MEDS: FAMOTIDINE 20 MG TABLET PO SCH ×2 (09:01→22:16)
[2017-11-26] MEDS: TAMSULOSIN 0.4 MG CAPSULE PO SCH (09:01)
[2017-11-26] MEDS: CARVEDILOL 3.125 MG TABLET PO SCH ×2 (09:10→22:17)
[2017-11-26] MEDS ORDERED: SODIUM CHLORIDE 0.9% IV SCH (10:00)
[2017-11-26] MEDS ORDERED: CYCLOPHOSPHAMIDE INJ 500 MG in SODIUM CHLORIDE 0.9% 250 ML IV ONE ×2 (10:00→14:00)
[2017-11-26] MEDS ORDERED: MESNA IV SCH (10:00)
[2017-11-26] MEDS: PIPERACILLIN/TAZOBACTAM 3,375 MG in SODIUM CHLORIDE 0.9% 100 ML IV SCH (10:12)
[2017-11-26] MEDS: SODIUM CHLORIDE 0.9% 1,000 ML IV SCH ×2 (10:12→22:26)
[2017-11-26] MEDS: BISACODYL 5 MG TABLET PO PRN (10:13)
[2017-11-26 11:57] LABS: Total Protein (Chem) 5.8 G/DL (6.4-8.3)
[2017-11-26 11:58] LABS: Albumin (SPE) 3.3 G/DL (3.2-5.3); Albumin (SPE) Rel % 56.8 %; Alpha 1 (SPE) 0.2 G/DL (0.1-0.4); Alpha 1 (SPE) Rel % 3.8 %; Alpha 2 (SPE) 0.8 G/DL (0.4-1.0); Alpha 2 (SPE) Rel % 14.3 %; Beta (SPE) 0.6 G/DL (0.5-1.1); Gamma (SPE) 0.9 G/DL (0.7-1.7); Gamma (SPE) Rel % 15.1 %
[2017-11-26 12:03] LABS: Random Urine Protein (Bench) 36 MG/DL (<11.9)
[2017-11-26 13:11] LABS: Immunoglobulin A (Chem) 207 MG/DL (70-400); Immunoglobulin G (Chem) 912 MG/DL (700-1600); Immunoglobulin M (Chem) 77 MG/DL (40-230)
[2017-11-26] MEDS ORDERED: DEXAMETHASONE INJ 10 MG in SODIUM CHLORIDE 0.9% 50 ML IV SCH ×2 (14:00→18:00)
[2017-11-26] MEDS: MESNA IV SCH ×3 (14:40→22:22)
[2017-11-26] MEDS: SODIUM CHLORIDE 0.9% IV SCH ×3 (14:40→22:22)
[2017-11-26] MEDS: ONDANSETRON 4 MG/2 ML VIAL IV SCH ×2 (18:17→22:29)
[2017-11-26] MEDS: FLUCONAZOLE INJ 200 MG in PREMIX 1 EACH IV SCH (22:15)
[2017-11-26] MEDS: ATORVASTATIN 40 MG TABLET PO SCH (22:16)
[2017-11-27] MEDS: PIPERACILLIN/TAZOBACTAM 3,375 MG in SODIUM CHLORIDE 0.9% 100 ML IV SCH ×3 (00:14→22:18)
[2017-11-27] MEDS: ALBUTEROL/IPRATROPIUM 3 ML NEB RESP TX SCH ×4 (00:15→19:58)
[2017-11-27] MEDS: ONDANSETRON 4 MG/2 ML VIAL IV SCH (04:03)
[2017-11-27 05:17] LABS: Hematocrit 28.9 VOL% (42.0-52.0); Hemoglobin 9.3 GM/DL (14.0-18.0); Immature Granulocytes % 0.4 %; Immature Granulocytes Absolute 0.02 #; Lymphocytes # 0.4 10*3/uL (1.4-4.0); Lymphocytes % 8.8 % (21.2-54.2); Mean Corpuscular HGB Conc 32.2 GM/DL (32-36); Mean Corpuscular Hemoglobin 33 PG (27-34); Mean Corpuscular Volume 101.8 FL (87-102); Mean Platelet Volume 10.4 FL (9.6-12.0); Monocytes # 0.2 10*3/uL (0.11-0.8); Monocytes % 3.4 % (1.7-12.7); Neutrophils # 4.4 10*3/uL (1.4-7.4); Neutrophils % 87.4 % (38.7-73.9); Platelet Count 206 T/CUMM (130-400); Red Blood Count 2.84 MC/CUMM (3.8-5.5); Red Cell Distribution Width 20.7 % (9.3-17.3)
[2017-11-27 05:50] LABS: Calcium 8.5 MG/DL (8.5-10.1); Potassium 4.2 MMOL/L (3.5-5.1)
[2017-11-27] MEDS: FUROSEMIDE 40 MG/4 ML VIAL IV SCH ×2 (08:38→15:57)
[2017-11-27] MEDS: TAMSULOSIN 0.4 MG CAPSULE PO SCH (13:46)
[2017-11-27] MEDS: DOCUSATE SODIUM 100 MG CAPSULE PO SCH ×2 (13:46→21:06)
[2017-11-27] MEDS: predniSONE 20 MG TABLET PO SCH (13:46)
[2017-11-27] MEDS: ASPIRIN EC 81 MG TABLET PO SCH (13:46)
[2017-11-27] MEDS: FAMOTIDINE 20 MG TABLET PO SCH ×2 (13:46→21:06)
[2017-11-27] MEDS: CARVEDILOL 3.125 MG TABLET PO SCH ×2 (13:46→21:06)
[2017-11-27] MEDS: SODIUM CHLORIDE 0.9% 1,000 ML IV SCH (14:04)
[2017-11-27] MEDS: SUCRALFATE 1 GM/10 ML UDCUP PO SCH ×2 (15:56→21:43)
[2017-11-27] MEDS: ATORVASTATIN 40 MG TABLET PO SCH (21:06)
[2017-11-27] MEDS: FLUCONAZOLE INJ 200 MG in PREMIX 1 EACH IV SCH (21:07)
[2017-11-28] MEDS: ALBUTEROL/IPRATROPIUM 3 ML NEB RESP TX SCH ×4 (00:01→19:06)
[2017-11-28 08:07] LABS: Basophils % 0.1 % (0.0-0.8); Hematocrit 32.1 VOL% (42.0-52.0); Immature Granulocytes % 0.6 %; Immature Granulocytes Absolute 0.04 #; Lymphocytes % 13.4 % (21.2-54.2); Mean Corpuscular HGB Conc 31.2 GM/DL (32-36); Mean Corpuscular Hemoglobin 32 PG (27-34); Mean Corpuscular Volume 103.2 FL (87-102); Mean Platelet Volume 10.1 FL (9.6-12.0); Monocytes # 0.5 10*3/uL (0.11-0.8); Monocytes % 7.5 % (1.7-12.7); Neutrophils # 5.6 10*3/uL (1.4-7.4); Neutrophils % 78.4 % (38.7-73.9); Platelet Count 228 T/CUMM (130-400); Red Blood Count 3.11 MC/CUMM (3.8-5.5); Red Cell Distribution Width 20.7 % (9.3-17.3); White Blood Count 7.2 T/CUMM (4-12)
[2017-11-28] MEDS: FUROSEMIDE 40 MG/4 ML VIAL IV SCH ×2 (08:12→15:49)
[2017-11-28] MEDS: predniSONE 20 MG TABLET PO SCH (08:12)
[2017-11-28] MEDS: TAMSULOSIN 0.4 MG CAPSULE PO SCH (08:12)
[2017-11-28] MEDS: FAMOTIDINE 20 MG TABLET PO SCH ×2 (08:12→20:55)
[2017-11-28] MEDS: CARVEDILOL 3.125 MG TABLET PO SCH ×2 (08:12→20:55)
[2017-11-28] MEDS: ASPIRIN EC 81 MG TABLET PO SCH (08:12)
[2017-11-28] MEDS: DOCUSATE SODIUM 100 MG CAPSULE PO SCH ×2 (08:13→20:55)
[2017-11-28] MEDS: SUCRALFATE 1 GM/10 ML UDCUP PO SCH ×4 (08:13→20:55)
[2017-11-28 08:22] LABS: Calcium 8.3 MG/DL (8.5-10.1); Osmolality,Calculated 304.8 MOS/KG (273-304); Potassium 3.9 MMOL/L (3.5-5.1)
[2017-11-28] MEDS ORDERED: FUROSEMIDE 40 MG/4 ML VIAL IV SCH (09:00)
[2017-11-28] MEDS: PIPERACILLIN/TAZOBACTAM 3,375 MG in SODIUM CHLORIDE 0.9% 100 ML IV SCH ×2 (10:17→22:32)
[2017-11-28] MEDS ORDERED: PROPOFOL 200 MG/20 ML VIAL IV ONE (13:04)
[2017-11-28] MEDS ORDERED: LIDOCAINE 2% 5 ML VIAL ONE (13:04)
[2017-11-28] MEDS: ATORVASTATIN 40 MG TABLET PO SCH (20:55)
[2017-11-28] MEDS: FLUCONAZOLE INJ 200 MG in PREMIX 1 EACH IV SCH (20:56)
[2017-11-29] MEDS: ALBUTEROL/IPRATROPIUM 3 ML NEB RESP TX SCH ×4 (00:27→19:34)
[2017-11-29 07:18] LABS: Basophils % 0.1 % (0.0-0.8); Hematocrit 32.1 VOL% (42.0-52.0); Hemoglobin 10.3 GM/DL (14.0-18.0); Immature Granulocytes % 0.3 %; Immature Granulocytes Absolute 0.02 #; Lymphocytes % 13.7 % (21.2-54.2); Mean Corpuscular HGB Conc 32.1 GM/DL (32-36); Mean Corpuscular Hemoglobin 32 PG (27-34); Mean Corpuscular Volume 99.4 FL (87-102); Mean Platelet Volume 10.7 FL (9.6-12.0); Monocytes # 0.6 10*3/uL (0.11-0.8); Monocytes % 8.3 % (1.7-12.7); Neutrophils # 5.4 10*3/uL (1.4-7.4); Neutrophils % 77.6 % (38.7-73.9); Platelet Count 243 T/CUMM (130-400); Red Blood Count 3.23 MC/CUMM (3.8-5.5); Red Cell Distribution Width 19.9 % (9.3-17.3)
[2017-11-29 07:38] LABS: Calcium 8.8 MG/DL (8.5-10.1); Magnesium 1.9 MG/DL (1.8-2.4); Osmolality,Calculated 306.7 MOS/KG (273-304); Potassium 3.4 MMOL/L (3.5-5.1)
[2017-11-29] MEDS: SUCRALFATE 1 GM/10 ML UDCUP PO SCH ×4 (07:59→21:47)
[2017-11-29] MEDS: FUROSEMIDE 40 MG/4 ML VIAL IV SCH (07:59)
[2017-11-29] MEDS: predniSONE 20 MG TABLET PO SCH (07:59)
[2017-11-29] MEDS: ASPIRIN EC 81 MG TABLET PO SCH (07:59)
[2017-11-29] MEDS: FAMOTIDINE 20 MG TABLET PO SCH ×2 (08:00→21:47)
[2017-11-29] MEDS: DOCUSATE SODIUM 100 MG CAPSULE PO SCH ×2 (08:00→21:47)
[2017-11-29] MEDS: CARVEDILOL 3.125 MG TABLET PO SCH ×2 (08:00→21:48)
[2017-11-29] MEDS: TAMSULOSIN 0.4 MG CAPSULE PO SCH (08:00)
[2017-11-29] MEDS: PIPERACILLIN/TAZOBACTAM 3,375 MG in SODIUM CHLORIDE 0.9% 100 ML IV SCH (09:45)
[2017-11-29] MEDS ORDERED: POTASSIUM CHLORIDE 20 MEQ/15 ML UDCUP PO ONE (09:51)
[2017-11-29] MEDS ORDERED: ASPIRIN 325 MG TABLET ONE (12:20)
[2017-11-29] MEDS ORDERED: ASPIRIN CHEW 81 MG TABLET PO ONE (13:02)
[2017-11-29] MEDS ORDERED: ALUM/MAG/SIMETH/LIDO VISC 1:1 30 ML BOTTLE PO ONE (13:39)
[2017-11-29 16:36] LABS: Troponin I Only 0.083 NG/ML (0.00-0.045)
[2017-11-29] MEDS: FUROSEMIDE 40 MG/5 ML UDCUP PO SCH (16:43)
[2017-11-29] MEDS ORDERED: POTASSIUM CHLORIDE 20 MEQ/15 ML UDCUP PO SCH (21:00)
[2017-11-29] MEDS: FLUCONAZOLE INJ 200 MG in PREMIX 1 EACH IV SCH (21:47)
[2017-11-29] MEDS: ATORVASTATIN 40 MG TABLET PO SCH (21:47)
[2017-11-30] MEDS: ALBUTEROL/IPRATROPIUM 3 ML NEB RESP TX SCH ×4 (01:06→19:15)
[2017-11-30] MEDS: AMOXICILLIN/CLAV ES 600 125 ML/BOTTLE PO SCH ×3 (01:37→21:26)
[2017-11-30 05:16] LABS: Basophils % 0.1 % (0.0-0.8); Hematocrit 34.4 VOL% (42.0-52.0); Hemoglobin 10.8 GM/DL (14.0-18.0); Immature Granulocytes % 0.7 %; Immature Granulocytes Absolute 0.05 #; Lymphocytes # 1.1 10*3/uL (1.4-4.0); Lymphocytes % 14.6 % (21.2-54.2); Mean Corpuscular HGB Conc 31.4 GM/DL (32-36); Mean Corpuscular Hemoglobin 32 PG (27-34); Mean Corpuscular Volume 101.2 FL (87-102); Mean Platelet Volume 10.3 FL (9.6-12.0); Monocytes # 0.5 10*3/uL (0.11-0.8); Monocytes % 7.3 % (1.7-12.7); Neutrophils # 5.7 10*3/uL (1.4-7.4); Neutrophils % 77.3 % (38.7-73.9); Platelet Count 242 T/CUMM (130-400); Red Cell Distribution Width 19.8 % (9.3-17.3); White Blood Count 7.4 T/CUMM (4-12)
[2017-11-30 05:46] LABS: Calcium 8.7 MG/DL (8.5-10.1); Magnesium 2.1 MG/DL (1.8-2.4); Potassium 4.3 MMOL/L (3.5-5.1)
[2017-11-30] MEDS: CARVEDILOL 3.125 MG TABLET PO SCH ×2 (09:44→21:21)
[2017-11-30] MEDS: ASPIRIN EC 81 MG TABLET PO SCH (09:44)
[2017-11-30] MEDS: SUCRALFATE 1 GM/10 ML UDCUP PO SCH ×4 (09:44→21:21)
[2017-11-30] MEDS: predniSONE 20 MG TABLET PO SCH (09:44)
[2017-11-30] MEDS: DOCUSATE SODIUM 100 MG CAPSULE PO SCH ×2 (09:44→21:21)
[2017-11-30] MEDS: POTASSIUM CHLORIDE 20 MEQ/15 ML UDCUP PO SCH (09:44)
[2017-11-30] MEDS: TAMSULOSIN 0.4 MG CAPSULE PO SCH (09:44)
[2017-11-30] MEDS: FUROSEMIDE 40 MG/5 ML UDCUP PO SCH ×2 (09:44→17:03)
[2017-11-30] MEDS: FAMOTIDINE 20 MG TABLET PO SCH ×2 (09:45→21:21)
[2017-11-30] MEDS: ATORVASTATIN 40 MG TABLET PO SCH (21:20)
[2017-11-30] MEDS: FLUCONAZOLE INJ 200 MG in PREMIX 1 EACH IV SCH (21:45)
[2017-12-01] MEDS: ALBUTEROL/IPRATROPIUM 3 ML NEB RESP TX SCH ×4 (00:38→19:59)
[2017-12-01] MEDS: FAMOTIDINE 20 MG TABLET PO SCH ×2 (08:44→21:12)
[2017-12-01] MEDS: TAMSULOSIN 0.4 MG CAPSULE PO SCH (08:44)
[2017-12-01] MEDS: FUROSEMIDE 40 MG/5 ML UDCUP PO SCH ×2 (08:44→16:47)
[2017-12-01] MEDS: POTASSIUM CHLORIDE 20 MEQ/15 ML UDCUP PO SCH (08:44)
[2017-12-01] MEDS: CARVEDILOL 3.125 MG TABLET PO SCH ×2 (08:44→21:12)
[2017-12-01] MEDS: SUCRALFATE 1 GM/10 ML UDCUP PO SCH ×3 (08:44→16:47)
[2017-12-01] MEDS: AMOXICILLIN/CLAV ES 600 125 ML/BOTTLE PO SCH ×2 (08:44→21:12)
[2017-12-01] MEDS: predniSONE 20 MG TABLET PO SCH (08:44)
[2017-12-01] MEDS: DOCUSATE SODIUM 100 MG CAPSULE PO SCH ×2 (08:45→21:12)
[2017-12-01] MEDS: ASPIRIN EC 81 MG TABLET PO SCH (08:45)
[2017-12-01 16:01] LABS: Apearance,Urine CLEAR (Clear); Bilirubin,Urine Negative (Negative); Blood, Urine Small mg/dL (Negative); Glucose,Urine (UA) Negative (Negative); Ketones,Urine Negative (Negative); Nitrite,Urine Negative (Negative); Protein,Urine Negative; RBC,Urine 6 /HPF (0-4); Urine Color Straw (Yellow); Urine Specific Gravity 1.006 (1.001-1.035); Urine Urobilinogen < 2.0 EU/DL (0.2-1.0); WBC,Urine <1 /HPF (0-6)
[2017-12-01] MEDS: SUCRALFATE 1 GM TABLET PO SCH ×2 (16:54→21:12)
[2017-12-01] MEDS: FUROSEMIDE 80 MG TABLET PO SCH (16:54)
[2017-12-01] MEDS: ATORVASTATIN 40 MG TABLET PO SCH (21:12)
[2017-12-01] MEDS: FLUCONAZOLE INJ 200 MG in PREMIX 1 EACH IV SCH (21:12)
[2017-12-01] MEDS: BISACODYL 5 MG TABLET PO PRN (21:12)
[2017-12-02] MEDS: ALBUTEROL/IPRATROPIUM 3 ML NEB RESP TX SCH ×4 (00:45→19:28)
[2017-12-02] MEDS: AMOXICILLIN/CLAV ES 600 125 ML/BOTTLE PO SCH (08:03)
[2017-12-02] MEDS: predniSONE 20 MG TABLET PO SCH (08:03)
[2017-12-02] MEDS: FAMOTIDINE 20 MG TABLET PO SCH ×2 (08:03→21:53)
[2017-12-02] MEDS: SUCRALFATE 1 GM TABLET PO SCH ×4 (08:04→21:53)
[2017-12-02] MEDS: TAMSULOSIN 0.4 MG CAPSULE PO SCH (08:04)
[2017-12-02] MEDS: DOCUSATE SODIUM 100 MG CAPSULE PO SCH ×2 (08:04→21:53)
[2017-12-02] MEDS: ASPIRIN EC 81 MG TABLET PO SCH (08:04)
[2017-12-02] MEDS: POTASSIUM CHLORIDE 20 MEQ TABLET PO SCH (08:04)
[2017-12-02] MEDS: FUROSEMIDE 80 MG TABLET PO SCH ×2 (08:04→16:15)
[2017-12-02] MEDS: CARVEDILOL 3.125 MG TABLET PO SCH ×2 (08:04→21:53)
[2017-12-02] MEDS: FLUCONAZOLE INJ 200 MG in PREMIX 1 EACH IV SCH (21:52)
[2017-12-02] MEDS: ATORVASTATIN 40 MG TABLET PO SCH (21:53)
[2017-12-03] MEDS: ALBUTEROL/IPRATROPIUM 3 ML NEB RESP TX SCH ×3 (01:35→12:10)
[2017-12-03 04:59] LABS: Basophils % 0.1 % (0.0-0.8); Hematocrit 37.8 VOL% (42.0-52.0); Hemoglobin 12.6 GM/DL (14.0-18.0); Immature Granulocytes % 0.8 %; Immature Granulocytes Absolute 0.06 #; Lymphocytes # 1.2 10*3/uL (1.4-4.0); Lymphocytes % 14.9 % (21.2-54.2); Mean Corpuscular HGB Conc 33.3 GM/DL (32-36); Mean Corpuscular Hemoglobin 32 PG (27-34); Mean Corpuscular Volume 97.2 FL (87-102); Mean Platelet Volume 10.8 FL (9.6-12.0); Monocytes # 0.5 10*3/uL (0.11-0.8); Monocytes % 5.9 % (1.7-12.7); NRBC # 0.02 10*3/uL; Neutrophils # 6.1 10*3/uL (1.4-7.4); Neutrophils % 78.3 % (38.7-73.9); Platelet Count 247 T/CUMM (130-400); Red Blood Count 3.89 MC/CUMM (3.8-5.5); Red Cell Distribution Width 19.8 % (9.3-17.3); White Blood Count 7.8 T/CUMM (4-12)
[2017-12-03 05:24] LABS: Calcium 8.9 MG/DL (8.5-10.1); Osmolality,Calculated 303.5 MOS/KG (273-304); Potassium 5.1 MMOL/L (3.5-5.1)
[2017-12-03] MEDS: ASPIRIN EC 81 MG TABLET PO SCH (09:05)
[2017-12-03] MEDS: predniSONE 20 MG TABLET PO SCH (09:05)
[2017-12-03] MEDS: FUROSEMIDE 80 MG TABLET PO SCH (09:15)
[2017-12-03] MEDS: FAMOTIDINE 20 MG TABLET PO SCH (09:15)
[2017-12-03] MEDS: CARVEDILOL 3.125 MG TABLET PO SCH (09:15)
[2017-12-03] MEDS: TAMSULOSIN 0.4 MG CAPSULE PO SCH (09:15)
[2017-12-03] MEDS: DOCUSATE SODIUM 100 MG CAPSULE PO SCH (09:16)
[2017-12-03] MEDS: POTASSIUM CHLORIDE 20 MEQ TABLET PO SCH (09:16)
[2017-12-03] MEDS: SUCRALFATE 1 GM TABLET PO SCH ×2 (09:16→11:32)
[2017-12-03 13:05] VITALS: BP 120/64
[2017-12-04] MEDS ORDERED: FUROSEMIDE 80 MG TABLET PO SCH (09:00)
== END 2017-12-03 15:55 | DRG 682 ==
LOC: N.5E 12:40 → N.TELEN 11-29 13:52
PROVIDERS: ADMIT Internal Medicine Nephrology; ATTEND Internal Medicine Nephrology

== ENCOUNTER 2018-09-24 10:53 | Inpatient (IN) ==
[2018-09-24] MEDS ORDERED: SODIUM CHLORIDE 0.9% 1,000 ML IV STA (11:27)
[2018-09-24 12:28] LABS: Basophils % 0.2 % (0.0-0.8); Eosinophils % 0.7 % (0.00-10.9); Hematocrit 24.6 VOL% (42.0-52.0); Hemoglobin 7.8 GM/DL (14.0-18.0); Immature Granulocytes % 0.5 %; Immature Granulocytes Absolute 0.02 #; Lymphocytes # 0.6 10*3/uL (1.4-4.0); Lymphocytes % 14.2 % (21.2-54.2); Mean Corpuscular HGB Conc 31.7 GM/DL (32-36); Mean Corpuscular Hemoglobin 34 PG (27-34); Mean Corpuscular Volume 107.9 FL (87-102); Mean Platelet Volume 10.5 FL (9.6-12.0); Monocytes # 0.4 10*3/uL (0.11-0.8); Monocytes % 9.4 % (1.7-12.7); Neutrophils # 3.2 10*3/uL (1.4-7.4); Platelet Count 141 T/CUMM (130-400); Red Blood Count 2.28 MC/CUMM (3.8-5.5); Red Cell Distribution Width 15.9 % (9.3-17.3); White Blood Count 4.2 T/CUMM (4-12)
[2018-09-24 12:43] LABS: Osmolality,Calculated 291.7 MOS/KG (273-304); Potassium 4.3 MMOL/L (3.5-5.1)
[2018-09-24] MEDS ORDERED: SODIUM CHLORIDE 0.9% 1,000 ML IV PRN (13:07)
[2018-09-24] MEDS ORDERED: ACETAMINOPHEN 325 MG TABLET PO PRN (13:50)
[2018-09-24] MEDS ORDERED: ONDANSETRON 4 MG/2 ML VIAL IV PRN (13:50)
[2018-09-24] MEDS: SODIUM CHLORIDE 0.9% 1,000 ML IV SCH ×2 (16:00→23:59)
[2018-09-24] MEDS: DOCUSATE SODIUM 100 MG CAPSULE PO SCH (21:47)
[2018-09-24] MEDS: ATORVASTATIN 40 MG TABLET PO SCH (21:47)
[2018-09-24] MEDS: CITALOPRAM 20 MG TABLET PO SCH (21:47)
[2018-09-25 01:33] LABS: Hematocrit 30.9 VOL% (42.0-52.0); Hemoglobin 9.9 GM/DL (14.0-18.0)
[2018-09-25 05:14] LABS: Basophils % 0.4 % (0.0-0.8); Eosinophils # 0.1 10*3/uL (0.0-0.87); Eosinophils % 1.3 % (0.00-10.9); Hematocrit 31.2 VOL% (42.0-52.0); Hemoglobin 10.1 GM/DL (14.0-18.0); Immature Granulocytes % 0.2 %; Immature Granulocytes Absolute 0.01 #; Lymphocytes # 1.2 10*3/uL (1.4-4.0); Lymphocytes % 25.9 % (21.2-54.2); Mean Corpuscular HGB Conc 32.4 GM/DL (32-36); Mean Corpuscular Hemoglobin 34 PG (27-34); Mean Corpuscular Volume 103.7 FL (87-102); Mean Platelet Volume 10.8 FL (9.6-12.0); Monocytes # 0.6 10*3/uL (0.11-0.8); Monocytes % 12.4 % (1.7-12.7); Neutrophils # 2.7 10*3/uL (1.4-7.4); Neutrophils % 59.8 % (38.7-73.9); Platelet Count 128 T/CUMM (130-400); Red Blood Count 3.01 MC/CUMM (3.8-5.5); Red Cell Distribution Width 19.4 % (9.3-17.3); White Blood Count 4.5 T/CUMM (4-12)
[2018-09-25 05:40] LABS: Albumin 2.6 G/DL (3.4-5.0); Osmolality,Calculated 298.1 MOS/KG (273-304); Risk Ratio 1.63; Thyroid Stimulating Hormone 1.23 uIU/ml (0.358-3.74); Total Protein 5.8 G/DL (6.4-8.3); VLDL CHOLESTEROL 9.6 MG/DL
[2018-09-25] MEDS: SODIUM CHLORIDE 0.9% 1,000 ML IV SCH ×3 (07:30→17:30)
[2018-09-25 07:35] LABS: Apearance,Urine CLEAR (Clear); Bilirubin,Urine Negative (Negative); Blood, Urine Negative (Negative); Glucose,Urine (UA) Negative (Negative); Hyaline Casts,Urine 3 /LPF (0-3); Ketones,Urine Negative (Negative); Mucus,Urine Occasional /LPF (Occasional); Nitrite,Urine Negative (Negative); Protein,Urine Negative; Urine Color Yellow (Yellow); Urine Specific Gravity 1.009 (1.001-1.035); Urine Urobilinogen < 2.0 EU/DL (0.2-1.0)
[2018-09-25] MEDS: TAMSULOSIN 0.4 MG CAPSULE PO SCH (08:32)
[2018-09-25] MEDS: TORSEMIDE 20 MG TABLET PO SCH (08:32)
[2018-09-25] MEDS: MULTIVITAMIN (CENTRUM) TABLET PO SCH (08:32)
[2018-09-25] MEDS: PANTOPRAZOLE 40 MG TABLET PO SCH (08:32)
[2018-09-25] MEDS: ASPIRIN EC 81 MG TABLET PO SCH (08:32)
[2018-09-25] MEDS: DOCUSATE SODIUM 100 MG CAPSULE PO SCH ×2 (08:33→21:17)
[2018-09-25] MEDS ORDERED: IRON SUCROSE 300 MG in SODIUM CHLORIDE 0.9% 100 ML IV ONE (10:00)
[2018-09-25] MEDS: ATORVASTATIN 40 MG TABLET PO SCH (21:17)
[2018-09-25] MEDS: CITALOPRAM 20 MG TABLET PO SCH (21:17)
[2018-09-26 05:18] LABS: Basophils % 0.5 % (0.0-0.8); Eosinophils # 0.1 10*3/uL (0.0-0.87); Eosinophils % 2.7 % (0.00-10.9); Hematocrit 31.2 VOL% (42.0-52.0); Immature Granulocytes % 0.2 %; Immature Granulocytes Absolute 0.01 #; Lymphocytes # 0.9 10*3/uL (1.4-4.0); Lymphocytes % 21.2 % (21.2-54.2); Mean Corpuscular HGB Conc 32.1 GM/DL (32-36); Mean Corpuscular Hemoglobin 33 PG (27-34); Mean Corpuscular Volume 104.3 FL (87-102); Mean Platelet Volume 10.6 FL (9.6-12.0); Monocytes # 0.4 10*3/uL (0.11-0.8); Monocytes % 10.4 % (1.7-12.7); Neutrophils # 2.6 10*3/uL (1.4-7.4); Platelet Count 132 T/CUMM (130-400); Red Blood Count 2.99 MC/CUMM (3.8-5.5); Red Cell Distribution Width 18.9 % (9.3-17.3); White Blood Count 4.1 T/CUMM (4-12)
[2018-09-26 05:23] LABS: Calcium 8.1 MG/DL (8.5-10.1); Osmolality,Calculated 304.4 MOS/KG (273-304); Potassium 4.5 MMOL/L (3.5-5.1)
[2018-09-26] MEDS: SODIUM CHLORIDE 0.9% 1,000 ML IV SCH (06:38)
[2018-09-26] MEDS: TORSEMIDE 20 MG TABLET PO SCH (08:41)
[2018-09-26] MEDS: TAMSULOSIN 0.4 MG CAPSULE PO SCH (08:41)
[2018-09-26] MEDS: MULTIVITAMIN (CENTRUM) TABLET PO SCH (08:42)
[2018-09-26] MEDS: DOCUSATE SODIUM 100 MG CAPSULE PO SCH (08:42)
[2018-09-26] MEDS: ASPIRIN EC 81 MG TABLET PO SCH (08:42)
[2018-09-26] MEDS: PANTOPRAZOLE 40 MG TABLET PO SCH (08:42)
[2018-09-26 09:45] VITALS: BP 125/65
[2018-09-27 16:21] LABS: Myeloperoxidase Antibody 1.2 U
[2018-10-02 09:37] LABS: c-ANCA Negative (Negative); p-ANCA Positive (Negative)
== END 2018-09-26 10:50 | disposition home or self-care (01) | DRG 312 ==
LOC: EDBD → EDUNIT# → N.EDINP 10:53 → N.ED 10:53 → N.EDINP 19:08 → N.CC 19:18
PROVIDERS: ADMIT Family Medicine; ATTEND Family Medicine

== ENCOUNTER 2018-12-07 13:13 | Inpatient (IN) ==
[2018-12-07 14:01] LABS: Basophils % 0.3 % (0.0-0.8); Eosinophils # 0.1 10*3/uL (0.0-0.87); Eosinophils % 1.3 % (0.00-10.9); Hematocrit 34.8 VOL% (42.0-52.0); Hemoglobin 10.9 GM/DL (14.0-18.0); Immature Granulocytes % 0.2 %; Immature Granulocytes Absolute 0.01 #; Lymphocytes # 1.4 10*3/uL (1.4-4.0); Lymphocytes % 23.3 % (21.2-54.2); Mean Corpuscular HGB Conc 31.3 GM/DL (32-36); Mean Corpuscular Hemoglobin 32 PG (27-34); Mean Corpuscular Volume 103.6 FL (87-102); Mean Platelet Volume 10.7 FL (9.6-12.0); Monocytes # 0.6 10*3/uL (0.11-0.8); Monocytes % 10.3 % (1.7-12.7); Neutrophils # 3.9 10*3/uL (1.4-7.4); Neutrophils % 64.6 % (38.7-73.9); Platelet Count 152 T/CUMM (130-400); Red Blood Count 3.36 MC/CUMM (3.8-5.5); Red Cell Distribution Width 15.8 % (9.3-17.3)
[2018-12-07] MEDS ORDERED: FUROSEMIDE 40 MG/4 ML VIAL IV STA (14:06)
[2018-12-07 14:31] LABS: Albumin 2.9 G/DL (3.4-5.0); Bilirubin,Total 0.6 MG/DL (0.2-1.0); Calcium 8.5 MG/DL (8.5-10.1); Osmolality,Calculated 293.3 MOS/KG (273-304); Potassium 4.4 MMOL/L (3.5-5.1); Total Protein 6.4 G/DL (6.4-8.3)
[2018-12-07] MEDS ORDERED: ONDANSETRON 4 MG/2 ML VIAL IV PRN (17:22)
[2018-12-07] MEDS ORDERED: ACETAMINOPHEN 325 MG TABLET PO PRN (17:22)
[2018-12-07] MEDS ORDERED: MAGNESIUM HYDROXIDE SUSP 30 ML UDCUP PO PRN (17:22)
[2018-12-07] MEDS ORDERED: DARBEPOETIN ALFA 200 MCG/ML VIAL SUBCUT SCH (17:30)
[2018-12-07] MEDS: SODIUM CHLORIDE 0.45% 1,000 ML IV SCH (17:51)
[2018-12-07] MEDS: ATORVASTATIN 40 MG TABLET PO SCH (20:46)
[2018-12-07] MEDS: CITALOPRAM 20 MG TABLET PO SCH (20:46)
[2018-12-07 21:48] LABS: Apearance,Urine CLEAR (Clear); Bilirubin,Urine Negative (Negative); Blood, Urine Small mg/dL (Negative); Glucose,Urine (UA) Negative (Negative); Hyaline Casts,Urine 1 /LPF (0-3); Ketones,Urine Negative (Negative); Nitrite,Urine Negative (Negative); Protein,Urine Negative; RBC,Urine 1 /HPF (0-4); Urine Color Straw (Yellow); Urine Specific Gravity 1.006 (1.001-1.035); Urine Urobilinogen < 2.0 EU/DL (0.2-1.0); WBC,Urine <1 /HPF (0-6)
[2018-12-08 05:41] LABS: Basophils % 0.3 % (0.0-0.8); Eosinophils # 0.1 10*3/uL (0.0-0.87); Eosinophils % 1.7 % (0.00-10.9); Hematocrit 32.5 VOL% (42.0-52.0); Hemoglobin 10.2 GM/DL (14.0-18.0); Immature Granulocytes % 0.5 %; Immature Granulocytes Absolute 0.03 #; Lymphocytes # 1.2 10*3/uL (1.4-4.0); Mean Corpuscular HGB Conc 31.4 GM/DL (32-36); Mean Corpuscular Hemoglobin 32 PG (27-34); Mean Corpuscular Volume 103.2 FL (87-102); Mean Platelet Volume 10.7 FL (9.6-12.0); Monocytes # 0.6 10*3/uL (0.11-0.8); Monocytes % 8.7 % (1.7-12.7); Neutrophils # 4.6 10*3/uL (1.4-7.4); Neutrophils % 70.8 % (38.7-73.9); Platelet Count 142 T/CUMM (130-400); Red Blood Count 3.15 MC/CUMM (3.8-5.5); Red Cell Distribution Width 15.6 % (9.3-17.3); White Blood Count 6.5 T/CUMM (4-12)
[2018-12-08 06:03] LABS: Albumin 2.7 G/DL (3.4-5.0); Bilirubin,Total 1.4 MG/DL (0.2-1.0); Calcium 8.3 MG/DL (8.5-10.1); Osmolality,Calculated 289.5 MOS/KG (273-304); Potassium 4.5 MMOL/L (3.5-5.1); Risk Ratio 1.72
[2018-12-08] MEDS ORDERED: FUROSEMIDE 20 MG/2 ML VIAL IV SCH (08:00)
[2018-12-08] MEDS: ASPIRIN EC 81 MG TABLET PO SCH (09:14)
[2018-12-08] MEDS: PANTOPRAZOLE 40 MG TABLET PO SCH (09:14)
[2018-12-08] MEDS: MULTIVITAMIN (CENTRUM) TABLET PO SCH (09:14)
[2018-12-08] MEDS: TORSEMIDE 20 MG TABLET PO SCH (09:14)
[2018-12-08] MEDS: TAMSULOSIN 0.4 MG CAPSULE PO SCH (09:14)
[2018-12-08] MEDS: SODIUM CHLORIDE 0.45% 1,000 ML IV SCH (13:03)
[2018-12-08] MEDS: CITALOPRAM 20 MG TABLET PO SCH (20:26)
[2018-12-08] MEDS: ATORVASTATIN 40 MG TABLET PO SCH (20:26)
[2018-12-09 05:26] LABS: Basophils % 0.3 % (0.0-0.8); Eosinophils # 0.2 10*3/uL (0.0-0.87); Eosinophils % 2.4 % (0.00-10.9); Hematocrit 31.7 VOL% (42.0-52.0); Hemoglobin 10.2 GM/DL (14.0-18.0); Immature Granulocytes % 0.6 %; Immature Granulocytes Absolute 0.04 #; Lymphocytes # 1.1 10*3/uL (1.4-4.0); Lymphocytes % 17.1 % (21.2-54.2); Mean Corpuscular HGB Conc 32.2 GM/DL (32-36); Mean Corpuscular Hemoglobin 33 PG (27-34); Mean Corpuscular Volume 102.6 FL (87-102); Mean Platelet Volume 10.9 FL (9.6-12.0); Monocytes # 0.6 10*3/uL (0.11-0.8); Monocytes % 9.7 % (1.7-12.7); Neutrophils # 4.5 10*3/uL (1.4-7.4); Neutrophils % 69.9 % (38.7-73.9); Platelet Count 141 T/CUMM (130-400); Red Blood Count 3.09 MC/CUMM (3.8-5.5); Red Cell Distribution Width 15.6 % (9.3-17.3); White Blood Count 6.4 T/CUMM (4-12)
[2018-12-09 05:56] LABS: Albumin 2.7 G/DL (3.4-5.0); Bilirubin,Total 0.9 MG/DL (0.2-1.0); Calcium 8.1 MG/DL (8.5-10.1); Osmolality,Calculated 290.5 MOS/KG (273-304); Potassium 4.4 MMOL/L (3.5-5.1); Thyroid Stimulating Hormone 2.49 uIU/ml (0.358-3.74); Total Protein 5.9 G/DL (6.4-8.3)
[2018-12-09] MEDS: TAMSULOSIN 0.4 MG CAPSULE PO SCH (09:00)
[2018-12-09] MEDS: FUROSEMIDE 20 MG TABLET PO SCH (09:00)
[2018-12-09] MEDS: ASPIRIN EC 81 MG TABLET PO SCH (09:00)
[2018-12-09] MEDS: MULTIVITAMIN (CENTRUM) TABLET PO SCH (09:01)
[2018-12-09] MEDS: PANTOPRAZOLE 40 MG TABLET PO SCH (09:01)
[2018-12-09] MEDS ORDERED: BENZOCAINE 20% SPRAY 57 GM CAN TOP ONE (09:17)
[2018-12-09] MEDS: TORSEMIDE 20 MG TABLET PO SCH (10:09)
[2018-12-09] MEDS: SODIUM CHLORIDE 0.45% 1,000 ML IV SCH (10:41)
[2018-12-09] MEDS: CARVEDILOL 3.125 MG TABLET PO SCH ×2 (11:09→21:25)
[2018-12-09] MEDS: hydrALAZINE 10 MG TABLET PO SCH ×2 (11:09→21:25)
[2018-12-09] MEDS: ATORVASTATIN 40 MG TABLET PO SCH (21:25)
[2018-12-09] MEDS: CITALOPRAM 20 MG TABLET PO SCH (21:25)
[2018-12-09] MEDS: MUPIROCIN 2% OINT 22 GM TUBE TOP SCH (21:25)
[2018-12-10 05:44] LABS: Basophils % 0.3 % (0.0-0.8); Eosinophils # 0.2 10*3/uL (0.0-0.87); Eosinophils % 2.5 % (0.00-10.9); Hematocrit 32.4 VOL% (42.0-52.0); Hemoglobin 10.3 GM/DL (14.0-18.0); Immature Granulocytes % 0.3 %; Immature Granulocytes Absolute 0.02 #; Lymphocytes % 15.2 % (21.2-54.2); Mean Corpuscular HGB Conc 31.8 GM/DL (32-36); Mean Corpuscular Hemoglobin 33 PG (27-34); Mean Corpuscular Volume 102.9 FL (87-102); Mean Platelet Volume 10.8 FL (9.6-12.0); Monocytes # 0.7 10*3/uL (0.11-0.8); Monocytes % 10.6 % (1.7-12.7); Neutrophils # 4.5 10*3/uL (1.4-7.4); Neutrophils % 71.1 % (38.7-73.9); Platelet Count 132 T/CUMM (130-400); Red Blood Count 3.15 MC/CUMM (3.8-5.5); Red Cell Distribution Width 15.8 % (9.3-17.3); White Blood Count 6.3 T/CUMM (4-12)
[2018-12-10 06:07] LABS: Calcium 8.5 MG/DL (8.5-10.1); Osmolality,Calculated 294.3 MOS/KG (273-304); Potassium 4.5 MMOL/L (3.5-5.1)
[2018-12-10 08:31] VITALS: BP 124/63
[2018-12-10] MEDS: PANTOPRAZOLE 40 MG TABLET PO SCH (08:49)
[2018-12-10] MEDS: TAMSULOSIN 0.4 MG CAPSULE PO SCH (08:49)
[2018-12-10] MEDS: TORSEMIDE 20 MG TABLET PO SCH (08:49)
[2018-12-10] MEDS: MULTIVITAMIN (CENTRUM) TABLET PO SCH (08:49)
[2018-12-10] MEDS: ASPIRIN EC 81 MG TABLET PO SCH (08:49)
[2018-12-10] MEDS: CARVEDILOL 3.125 MG TABLET PO SCH (08:49)
[2018-12-10] MEDS: FUROSEMIDE 20 MG TABLET PO SCH (08:49)
[2018-12-10] MEDS: MUPIROCIN 2% OINT 22 GM TUBE TOP SCH (08:53)
[2018-12-10] MEDS ORDERED: hydrALAZINE 10 MG TABLET PO SCH (09:00)
== END 2018-12-10 12:38 | disposition home or self-care (01) | DRG 291 ==
LOC: N.ED 13:13 → N.EDINP 15:00 → N.2E 16:25
PROVIDERS: ADMIT Family Medicine; ATTEND Family Medicine

== ENCOUNTER 2019-05-02 09:45 | Inpatient (IN) ==
[2019-05-02 11:06] LABS: Basophils % 0.2 % (0.0-0.8); Eosinophils # 0.1 10*3/uL (0.0-0.87); Eosinophils % 2.6 % (0.00-10.9); Hematocrit 21.2 VOL% (42.0-52.0); Hemoglobin 6.7 GM/DL (14.0-18.0); Immature Granulocytes % 0.2 %; Immature Granulocytes Absolute 0.01 #; Lymphocytes # 0.8 10*3/uL (1.4-4.0); Lymphocytes % 18.1 % (21.2-54.2); Mean Corpuscular HGB Conc 31.6 GM/DL (32-36); Mean Corpuscular Volume 104.4 FL (87-102); Mean Platelet Volume 10.2 FL (9.6-12.0); Monocytes % 8.8 % (1.7-12.7); Neutrophils % 70.1 % (38.7-73.9); Platelet Count 142 T/CUMM (130-400); Red Blood Count 2.03 MC/CUMM (3.8-5.5); Red Cell Distribution Width 16.1 % (9.3-17.3); White Blood Count 4.6 T/CUMM (4-12)
[2019-05-02 11:23] LABS: Calcium 8.5 MG/DL (8.5-10.1); Osmolality,Calculated 302.7 MOS/KG (273-304)
[2019-05-02] MEDS ORDERED: SODIUM POLYSTYRENE SULFATE 15 GM/60 ML BOTTLE PO STA (11:43)
[2019-05-02] MEDS ORDERED: SODIUM POLYSTYRENE SULFATE 15 GM/60 ML BOTTLE ONE ×2 (11:47→11:48)
[2019-05-02] MEDS ORDERED: ONDANSETRON 4 MG/2 ML VIAL IV PRN (11:48)
[2019-05-02] MEDS ORDERED: SODIUM CHLORIDE 0.9% 1,000 ML IV PRN (11:48)
[2019-05-02] MEDS ORDERED: ACETAMINOPHEN 325 MG TABLET PO PRN (11:48)
[2019-05-02] MEDS ORDERED: MORPHINE 4 MG/1 ML VIAL IV PRN (11:48)
[2019-05-02 12:04] LABS: Amorphous Crystals,Urine Occasional /HPF (Few); Apearance,Urine CLEAR (Clear); Bacteria,Urine Occasional /HPF (Few); Bilirubin,Urine Negative (Negative); Blood, Urine Large mg/dL (Negative); Glucose,Urine (UA) Negative (Negative); Ketones,Urine Negative (Negative); Mucus,Urine Occasional /LPF (Occasional); Nitrite,Urine Negative (Negative); Protein,Urine 30 MG/DL; RBC,Urine 37 /HPF (0-4); Urine Color Yellow (Yellow); Urine Specific Gravity 1.011 (1.001-1.035); Urine Urobilinogen < 2.0 EU/DL (0.2-1.0)
[2019-05-02] MEDS: methylPREDNISolone SOD SUC INJ 500 MG in SODIUM CHLORIDE 0.9% 100 ML IV SCH (16:50)
[2019-05-02] MEDS ORDERED: FUROSEMIDE 40 MG/4 ML VIAL IV ONE (18:57)
[2019-05-02] MEDS: CITALOPRAM 20 MG TABLET PO SCH (21:32)
[2019-05-02] MEDS: CARVEDILOL 3.125 MG TABLET PO SCH (21:32)
[2019-05-02] MEDS: DOCUSATE SODIUM 100 MG CAPSULE PO SCH (21:32)
[2019-05-02] MEDS: ATORVASTATIN 40 MG TABLET PO SCH (21:33)
[2019-05-03] MEDS: SODIUM BICARB INJ 100 MEQ in DEXTROSE 5% 1,000 ML IV SCH ×2 (01:38→08:41)
[2019-05-03 04:51] LABS: Hematocrit 25.8 VOL% (42.0-52.0); Hemoglobin 8.4 GM/DL (14.0-18.0); Lymphocytes # 0.2 10*3/uL (1.4-4.0); Lymphocytes % 12.2 % (21.2-54.2); Mean Corpuscular HGB Conc 32.6 GM/DL (32-36); Mean Corpuscular Volume 97.7 FL (87-102); Mean Platelet Volume 10.3 FL (9.6-12.0); Monocytes % 1.1 % (1.7-12.7); Neutrophils % 86.7 % (38.7-73.9); Platelet Count 124 T/CUMM (130-400); Red Blood Count 2.64 MC/CUMM (3.8-5.5); Red Cell Distribution Width 18.4 % (9.3-17.3); White Blood Count 1.9 T/CUMM (4-12)
[2019-05-03 05:05] LABS: Albumin 2.7 G/DL (3.4-5.0); Calcium 7.8 MG/DL (8.5-10.1); Osmolality,Calculated 320.1 MOS/KG (273-304)
[2019-05-03 05:09] LABS: Risk Ratio 2.46; VLDL CHOLESTEROL 16.2 MG/DL
[2019-05-03 05:32] LABS: Lymphocytes 4 % (20-55); Segmented Neutrophils 96 % (50-85); Total Cells Counted 100
[2019-05-03 05:33] LABS: Anisocytosis 1+; Microcytosis 1+; Ovalocytes Few
[2019-05-03 05:34] LABS: Platelet Estimate Adequate
[2019-05-03] MEDS: ASPIRIN EC 81 MG TABLET PO SCH (08:39)
[2019-05-03] MEDS: CARVEDILOL 3.125 MG TABLET PO SCH ×2 (08:39→21:22)
[2019-05-03] MEDS: PANTOPRAZOLE 40 MG TABLET PO SCH (08:39)
[2019-05-03] MEDS: DOCUSATE SODIUM 100 MG CAPSULE PO SCH ×2 (08:40→21:22)
[2019-05-03] MEDS: TAMSULOSIN 0.4 MG CAPSULE PO SCH (08:40)
[2019-05-03] MEDS ORDERED: FUROSEMIDE 40 MG/4 ML VIAL IV SCH (09:00)
[2019-05-03] MEDS: methylPREDNISolone SOD SUC INJ 500 MG in SODIUM CHLORIDE 0.9% 100 ML IV SCH (17:32)
[2019-05-03] MEDS: CITALOPRAM 20 MG TABLET PO SCH (21:22)
[2019-05-03] MEDS: ATORVASTATIN 40 MG TABLET PO SCH (21:22)
[2019-05-04 04:13] LABS: Albumin 2.7 G/DL (3.4-5.0); Calcium 7.9 MG/DL (8.5-10.1)
[2019-05-04] MEDS: SODIUM BICARB INJ 100 MEQ in DEXTROSE 5% 1,000 ML IV SCH ×2 (06:23→13:46)
[2019-05-04] MEDS: TAMSULOSIN 0.4 MG CAPSULE PO SCH (09:03)
[2019-05-04] MEDS: DOCUSATE SODIUM 100 MG CAPSULE PO SCH ×2 (09:03→20:41)
[2019-05-04] MEDS: CARVEDILOL 3.125 MG TABLET PO SCH ×2 (09:03→20:41)
[2019-05-04] MEDS: ASPIRIN EC 81 MG TABLET PO SCH (09:03)
[2019-05-04] MEDS: PANTOPRAZOLE 40 MG TABLET PO SCH (09:03)
[2019-05-04 14:00] LABS: Hematocrit 24.4 VOL% (42.0-52.0); Hemoglobin 7.7 GM/DL (14.0-18.0)
[2019-05-04] MEDS: ATORVASTATIN 40 MG TABLET PO SCH (20:41)
[2019-05-04] MEDS: CITALOPRAM 20 MG TABLET PO SCH (20:41)
[2019-05-05] MEDS: SODIUM BICARB INJ 100 MEQ in DEXTROSE 5% 1,000 ML IV SCH (03:49)
[2019-05-05 04:40] LABS: Basophils % 0.1 % (0.0-0.8); Eosinophils % 0.1 % (0.00-10.9); Hematocrit 23.9 VOL% (42.0-52.0); Hemoglobin 7.6 GM/DL (14.0-18.0); Immature Granulocytes % 0.5 %; Immature Granulocytes Absolute 0.04 #; Lymphocytes # 0.8 10*3/uL (1.4-4.0); Lymphocytes % 9.9 % (21.2-54.2); Mean Corpuscular HGB Conc 31.8 GM/DL (32-36); Mean Platelet Volume 10.7 FL (9.6-12.0); Monocytes % 5.3 % (1.7-12.7); Neutrophils % 84.1 % (38.7-73.9); Platelet Count 128 T/CUMM (130-400); Red Blood Count 2.44 MC/CUMM (3.8-5.5); White Blood Count 7.9 T/CUMM (4-12)
[2019-05-05 05:23] LABS: Albumin 2.5 G/DL (3.4-5.0); Calcium 7.5 MG/DL (8.5-10.1); Osmolality,Calculated 317.8 MOS/KG (273-304)
[2019-05-05] MEDS: predniSONE 20 MG TABLET PO SCH (09:16)
[2019-05-05] MEDS: CARVEDILOL 3.125 MG TABLET PO SCH ×2 (09:16→20:53)
[2019-05-05] MEDS: DOCUSATE SODIUM 100 MG CAPSULE PO SCH ×2 (09:16→20:53)
[2019-05-05] MEDS: TAMSULOSIN 0.4 MG CAPSULE PO SCH (09:16)
[2019-05-05] MEDS: PANTOPRAZOLE 40 MG TABLET PO SCH (09:16)
[2019-05-05] MEDS: ASPIRIN EC 81 MG TABLET PO SCH (09:16)
[2019-05-05] MEDS: CITALOPRAM 20 MG TABLET PO SCH (20:53)
[2019-05-05] MEDS: ATORVASTATIN 40 MG TABLET PO SCH (20:53)
[2019-05-06 05:00] LABS: Eosinophils % 0.2 % (0.00-10.9); Hematocrit 23.7 VOL% (42.0-52.0); Hemoglobin 7.6 GM/DL (14.0-18.0); Immature Granulocytes % 0.5 %; Immature Granulocytes Absolute 0.03 #; Lymphocytes # 0.6 10*3/uL (1.4-4.0); Lymphocytes % 8.5 % (21.2-54.2); Mean Corpuscular HGB Conc 32.1 GM/DL (32-36); Mean Corpuscular Volume 97.5 FL (87-102); Mean Platelet Volume 10.9 FL (9.6-12.0); Monocytes % 6.1 % (1.7-12.7); Neutrophils % 84.7 % (38.7-73.9); Platelet Count 132 T/CUMM (130-400); Red Blood Count 2.43 MC/CUMM (3.8-5.5); White Blood Count 6.6 T/CUMM (4-12)
[2019-05-06 05:40] LABS: Albumin 2.5 G/DL (3.4-5.0); Calcium 7.7 MG/DL (8.5-10.1); Osmolality,Calculated 317.8 MOS/KG (273-304)
[2019-05-06 05:42] LABS: Albumin 2.4 G/DL (3.4-5.0); Bilirubin,Total 0.6 MG/DL (0.2-1.0); Calcium 7.5 MG/DL (8.5-10.1); Osmolality,Calculated 317.8 MOS/KG (273-304); Total Protein 5.3 G/DL (6.4-8.3)
[2019-05-06] MEDS: DOCUSATE SODIUM 100 MG CAPSULE PO SCH ×2 (09:26→21:04)
[2019-05-06] MEDS: SODIUM BICARB INJ 100 MEQ in DEXTROSE 5% 1,000 ML IV SCH ×2 (09:26→10:37)
[2019-05-06] MEDS: CARVEDILOL 3.125 MG TABLET PO SCH ×2 (09:27→21:04)
[2019-05-06] MEDS: PANTOPRAZOLE 40 MG TABLET PO SCH (09:27)
[2019-05-06] MEDS: ASPIRIN EC 81 MG TABLET PO SCH (09:27)
[2019-05-06] MEDS: TAMSULOSIN 0.4 MG CAPSULE PO SCH (09:27)
[2019-05-06] MEDS: predniSONE 20 MG TABLET PO SCH (09:27)
[2019-05-06] MEDS ORDERED: DARBEPOETIN ALFA 200 MCG/ML VIAL SUBCUT ONE (14:00)
[2019-05-06] MEDS: ATORVASTATIN 40 MG TABLET PO SCH (21:04)
[2019-05-06] MEDS: CITALOPRAM 20 MG TABLET PO SCH (21:04)
[2019-05-07 04:43] LABS: Eosinophils % 0.2 % (0.00-10.9); Hematocrit 23.6 VOL% (42.0-52.0); Hemoglobin 7.6 GM/DL (14.0-18.0); Immature Granulocytes % 0.5 %; Immature Granulocytes Absolute 0.03 #; Lymphocytes # 0.7 10*3/uL (1.4-4.0); Lymphocytes % 11.6 % (21.2-54.2); Mean Corpuscular HGB Conc 32.2 GM/DL (32-36); Mean Corpuscular Volume 97.5 FL (87-102); Mean Platelet Volume 10.5 FL (9.6-12.0); Monocytes % 6.3 % (1.7-12.7); Neutrophils % 81.4 % (38.7-73.9); Platelet Count 126 T/CUMM (130-400); Red Blood Count 2.42 MC/CUMM (3.8-5.5); Red Cell Distribution Width 17.5 % (9.3-17.3); White Blood Count 6.2 T/CUMM (4-12)
[2019-05-07] MEDS: SODIUM BICARB INJ 100 MEQ in DEXTROSE 5% 1,000 ML IV SCH (04:49)
[2019-05-07 05:23] LABS: Albumin 2.2 G/DL (3.4-5.0); Bilirubin,Total 0.4 MG/DL (0.2-1.0); Calcium 7.5 MG/DL (8.5-10.1); Osmolality,Calculated 317.1 MOS/KG (273-304); Total Protein 5.2 G/DL (6.4-8.3)
[2019-05-07] MEDS: ASPIRIN EC 81 MG TABLET PO SCH (08:22)
[2019-05-07] MEDS: DOCUSATE SODIUM 100 MG CAPSULE PO SCH (08:22)
[2019-05-07] MEDS: predniSONE 20 MG TABLET PO SCH (08:22)
[2019-05-07] MEDS: CARVEDILOL 3.125 MG TABLET PO SCH (08:23)
[2019-05-07] MEDS: TAMSULOSIN 0.4 MG CAPSULE PO SCH (08:23)
[2019-05-07 08:24] VITALS: BP 123/60
[2019-05-07] MEDS: PANTOPRAZOLE 40 MG TABLET PO SCH (08:24)
[2019-05-07] MEDS ORDERED: SODIUM BICARBONATE 650 MG TABLET PO SCH (09:00)
[2019-05-08 10:15] LABS: c-ANCA Negative (Negative); p-ANCA Positive (Negative)
== END 2019-05-07 11:11 | disposition hospice, home (50) | DRG 300 ==
LOC: EDUNIT# → N.ED 09:45 → N.EDINP 11:48 → N.TELES 13:20
PROVIDERS: ADMIT Family Medicine; ATTEND Family Medicine

== ENCOUNTER 2019-05-26 12:46 | Inpatient (IN) ==
[2019-05-26] MEDS ORDERED: FUROSEMIDE 40 MG/4 ML VIAL IV ONE (13:56)
[2019-05-26] MEDS ORDERED: ONDANSETRON 4 MG/2 ML VIAL IV PRN (14:39)
[2019-05-26] MEDS ORDERED: MAGNESIUM HYDROXIDE SUSP 30 ML UDCUP PO PRN (14:39)
[2019-05-26] MEDS ORDERED: ACETAMINOPHEN 325 MG TABLET PO PRN (14:39)
[2019-05-26 15:52] LABS: Hematocrit 27.8 VOL% (42.0-52.0); Immature Granulocytes % 0.6 %; Immature Granulocytes Absolute 0.04 #; Lymphocytes # 0.3 10*3/uL (1.4-4.0); Lymphocytes % 5.1 % (21.2-54.2); Mean Corpuscular HGB Conc 28.8 GM/DL (32-36); Mean Corpuscular Volume 107.8 FL (87-102); Monocytes % 2.5 % (1.7-12.7); Neutrophils % 91.8 % (38.7-73.9); Platelet Count 188 T/CUMM (130-400); Red Blood Count 2.58 MC/CUMM (3.8-5.5); White Blood Count 6.7 T/CUMM (4-12)
[2019-05-26] MEDS ORDERED: SODIUM CHLORIDE 0.45% 1,000 ML IV SCH (16:00)
[2019-05-26 16:12] LABS: Albumin 2.7 G/DL (3.4-5.0); Bilirubin,Total 0.5 MG/DL (0.2-1.0); Calcium 8.4 MG/DL (8.5-10.1); Osmolality,Calculated 317.1 MOS/KG (273-304); Total Protein 5.6 G/DL (6.4-8.3)
[2019-05-26 16:14] LABS: Hypochromasia Slight; Lymphocytes 8 % (20-55); Microcytosis Slight; Ovalocytes Slight; Platelet Estimate Normal; Segmented Neutrophils 89 % (50-85); Total Cells Counted 100
[2019-05-26 16:15] LABS: Anisocytosis 1+
[2019-05-26] MEDS: PANTOPRAZOLE 40 MG TABLET PO SCH (16:43)
[2019-05-26] MEDS: CARVEDILOL 3.125 MG TABLET PO SCH (16:43)
[2019-05-26] MEDS: SODIUM BICARBONATE 650 MG TABLET PO SCH (20:35)
[2019-05-26] MEDS: ATORVASTATIN 40 MG TABLET PO SCH (20:35)
[2019-05-26] MEDS: CITALOPRAM 20 MG TABLET PO SCH (20:35)
[2019-05-26] MEDS: TAMSULOSIN 0.4 MG CAPSULE PO SCH (20:35)
[2019-05-26 22:19] LABS: Apearance,Urine CLEAR (Clear); Bilirubin,Urine Negative (Negative); Blood, Urine Small mg/dL (Negative); Glucose,Urine (UA) 50 mg/dL (Negative); Ketones,Urine Negative (Negative); Mucus,Urine Occasional /LPF (Occasional); Nitrite,Urine Negative (Negative); Protein,Urine 30 MG/DL; RBC,Urine 3 /HPF (0-4); Urine Color Straw (Yellow); Urine Specific Gravity 1.008 (1.001-1.035); Urine Urobilinogen < 2.0 EU/DL (0.2-1.0); WBC,Urine <1 /HPF (0-6)
[2019-05-27 05:17] LABS: Eosinophils % 0.4 % (0.00-10.9); Hematocrit 24.4 VOL% (42.0-52.0); Hemoglobin 7.4 GM/DL (14.0-18.0); Immature Granulocytes % 0.5 %; Immature Granulocytes Absolute 0.03 #; Lymphocytes # 0.6 10*3/uL (1.4-4.0); Lymphocytes % 11.6 % (21.2-54.2); Mean Corpuscular HGB Conc 30.3 GM/DL (32-36); Mean Corpuscular Volume 103.8 FL (87-102); Monocytes % 6.5 % (1.7-12.7); Platelet Count 150 T/CUMM (130-400); Red Blood Count 2.35 MC/CUMM (3.8-5.5); Red Cell Distribution Width 17.7 % (9.3-17.3); White Blood Count 5.5 T/CUMM (4-12)
[2019-05-27 05:46] LABS: Albumin 2.5 G/DL (3.4-5.0); Bilirubin,Total 0.8 MG/DL (0.2-1.0); Calcium 8.3 MG/DL (8.5-10.1); Osmolality,Calculated 318.8 MOS/KG (273-304); Risk Ratio 2.54; Total Protein 5.2 G/DL (6.4-8.3); VLDL CHOLESTEROL 11.4 MG/DL
[2019-05-27] MEDS: PANTOPRAZOLE 40 MG TABLET PO SCH (08:05)
[2019-05-27] MEDS: MULTIVITAMIN (CENTRUM) TABLET PO SCH (08:05)
[2019-05-27] MEDS: FUROSEMIDE 40 MG/4 ML VIAL IV SCH ×2 (08:05→16:28)
[2019-05-27] MEDS: SODIUM BICARBONATE 650 MG TABLET PO SCH ×2 (08:05→20:41)
[2019-05-27] MEDS: ASPIRIN EC 81 MG TABLET PO SCH (08:09)
[2019-05-27] MEDS ORDERED: FUROSEMIDE 80 MG TABLET PO SCH (09:00)
[2019-05-27] MEDS: CARVEDILOL 3.125 MG TABLET PO SCH (16:28)
[2019-05-27] MEDS: TAMSULOSIN 0.4 MG CAPSULE PO SCH (20:41)
[2019-05-27] MEDS: ATORVASTATIN 40 MG TABLET PO SCH (20:41)
[2019-05-27] MEDS: CITALOPRAM 20 MG TABLET PO SCH (20:41)
[2019-05-28 05:37] LABS: Basophils % 0.2 % (0.0-0.8); Eosinophils # 0.1 10*3/uL (0.0-0.87); Eosinophils % 1.1 % (0.00-10.9); Immature Granulocytes % 0.5 %; Immature Granulocytes Absolute 0.03 #; Lymphocytes # 0.6 10*3/uL (1.4-4.0); Lymphocytes % 9.3 % (21.2-54.2); Mean Corpuscular HGB Conc 30.8 GM/DL (32-36); Mean Corpuscular Volume 103.2 FL (87-102); Mean Platelet Volume 11.2 FL (9.6-12.0); Monocytes % 7.9 % (1.7-12.7); Platelet Count 175 T/CUMM (130-400); Red Blood Count 2.52 MC/CUMM (3.8-5.5); Red Cell Distribution Width 17.6 % (9.3-17.3); White Blood Count 6.3 T/CUMM (4-12)
[2019-05-28 06:01] LABS: Albumin 2.6 G/DL (3.4-5.0); Bilirubin,Total 0.8 MG/DL (0.2-1.0); Calcium 8.4 MG/DL (8.5-10.1); Total Protein 5.4 G/DL (6.4-8.3)
[2019-05-28] MEDS: SODIUM BICARBONATE 650 MG TABLET PO SCH (09:07)
[2019-05-28] MEDS: FUROSEMIDE 40 MG/4 ML VIAL IV SCH ×2 (09:07→17:04)
[2019-05-28] MEDS: ASPIRIN EC 81 MG TABLET PO SCH (09:07)
[2019-05-28] MEDS: PANTOPRAZOLE 40 MG TABLET PO SCH (09:07)
[2019-05-28] MEDS: MULTIVITAMIN (CENTRUM) TABLET PO SCH (09:07)
[2019-05-28] MEDS: CARVEDILOL 3.125 MG TABLET PO SCH (17:04)
[2019-05-28] MEDS: TAMSULOSIN 0.4 MG CAPSULE PO SCH (20:19)
[2019-05-28] MEDS: CITALOPRAM 20 MG TABLET PO SCH (20:19)
[2019-05-28] MEDS: ATORVASTATIN 40 MG TABLET PO SCH (20:19)
[2019-05-29 05:50] LABS: Eosinophils # 0.1 10*3/uL (0.0-0.87); Eosinophils % 2.8 % (0.00-10.9); Hematocrit 24.1 VOL% (42.0-52.0); Hemoglobin 7.6 GM/DL (14.0-18.0); Immature Granulocytes % 0.4 %; Immature Granulocytes Absolute 0.02 #; Lymphocytes # 0.6 10*3/uL (1.4-4.0); Lymphocytes % 12.7 % (21.2-54.2); Mean Corpuscular HGB Conc 31.5 GM/DL (32-36); Mean Corpuscular Volume 102.1 FL (87-102); Mean Platelet Volume 11.4 FL (9.6-12.0); Monocytes % 7.5 % (1.7-12.7); Neutrophils % 76.6 % (38.7-73.9); Platelet Count 136 T/CUMM (130-400); Red Blood Count 2.36 MC/CUMM (3.8-5.5); Red Cell Distribution Width 17.5 % (9.3-17.3)
[2019-05-29 06:10] LABS: Albumin 2.5 G/DL (3.4-5.0); Bilirubin,Total 0.9 MG/DL (0.2-1.0); Calcium 7.9 MG/DL (8.5-10.1); Osmolality,Calculated 309.5 MOS/KG (273-304); Total Protein 5.2 G/DL (6.4-8.3)
[2019-05-29] MEDS: FUROSEMIDE 40 MG/4 ML VIAL IV SCH ×2 (09:10→16:56)
[2019-05-29] MEDS: predniSONE 10 MG TABLET PO SCH (09:10)
[2019-05-29] MEDS: MULTIVITAMIN (CENTRUM) TABLET PO SCH (09:10)
[2019-05-29] MEDS: ASPIRIN EC 81 MG TABLET PO SCH (09:10)
[2019-05-29] MEDS: PANTOPRAZOLE 40 MG TABLET PO SCH (09:10)
[2019-05-29] MEDS ORDERED: SODIUM CHLORIDE 0.9% 1,000 ML IV PRN (13:53)
[2019-05-29] MEDS ORDERED: FUROSEMIDE 40 MG/4 ML VIAL IV ONE (13:57)
[2019-05-29] MEDS: CARVEDILOL 3.125 MG TABLET PO SCH (17:34)
[2019-05-29] MEDS: CITALOPRAM 20 MG TABLET PO SCH (21:57)
[2019-05-29] MEDS: ATORVASTATIN 40 MG TABLET PO SCH (21:57)
[2019-05-29] MEDS: TAMSULOSIN 0.4 MG CAPSULE PO SCH (22:01)
[2019-05-29 23:37] LABS: Hematocrit 28.7 VOL% (42.0-52.0); Hemoglobin 9.2 GM/DL (14.0-18.0)
[2019-05-30 05:11] LABS: Basophils % 0.2 % (0.0-0.8); Eosinophils % 0.2 % (0.00-10.9); Hematocrit 27.9 VOL% (42.0-52.0); Hemoglobin 8.8 GM/DL (14.0-18.0); Immature Granulocytes % 0.5 %; Immature Granulocytes Absolute 0.02 #; Lymphocytes # 0.4 10*3/uL (1.4-4.0); Lymphocytes % 10.2 % (21.2-54.2); Mean Corpuscular HGB Conc 31.5 GM/DL (32-36); Mean Corpuscular Volume 98.6 FL (87-102); Mean Platelet Volume 11.4 FL (9.6-12.0); Monocytes % 6.8 % (1.7-12.7); Neutrophils % 82.1 % (38.7-73.9); Platelet Count 121 T/CUMM (130-400); Red Blood Count 2.83 MC/CUMM (3.8-5.5); White Blood Count 4.1 T/CUMM (4-12)
[2019-05-30 05:53] LABS: Albumin 2.3 G/DL (3.4-5.0); Bilirubin,Total 0.9 MG/DL (0.2-1.0); Osmolality,Calculated 316.3 MOS/KG (273-304); Total Protein 5.1 G/DL (6.4-8.3)
[2019-05-30] MEDS: MULTIVITAMIN (CENTRUM) TABLET PO SCH (08:59)
[2019-05-30] MEDS: ASPIRIN EC 81 MG TABLET PO SCH (09:00)
[2019-05-30] MEDS: PANTOPRAZOLE 40 MG TABLET PO SCH (09:00)
[2019-05-30] MEDS: predniSONE 10 MG TABLET PO SCH (09:00)
[2019-05-30] MEDS: FUROSEMIDE 40 MG/4 ML VIAL IV SCH (09:00)
[2019-05-30] MEDS ORDERED: FUROSEMIDE 40 MG TABLET PO SCH (11:00)
[2019-05-30 11:21] VITALS: BP 139/70
[2019-05-30] MEDS ORDERED: DARBEPOETIN ALFA 200 MCG/ML VIAL SUBCUT ONE (12:02)
== END 2019-05-30 13:40 | disposition home or self-care (01) | DRG 291 ==
LOC: N.2E
PROVIDERS: ADMIT Family Medicine; ATTEND Family Medicine